=== PATIENT | female | born 1955 | race Caucasian/White ===

== ENCOUNTER 2017-07-21 13:16 | Inpatient (IN) | payer OTHER ==
[2017-07-21] MEDS ORDERED: Sodium Chloride 0.9% 10 ML Syringe FLUSH PRN (13:49)
--- NOTE | 2017-07-21 14:25 | EDM.PDOC ---
ED HPI GENERAL MEDICAL PROBLEM - General Chief Complaint: Respiratory Problem Stated Complaint: LOW OXYGEN LEVELS Time Seen by Provider: 07/21/17 13:28 Source of Information: Reports: Patient, RN Notes Reviewed - History of Present Illness INITIAL COMMENTS - FREE TEXT/NARRATIVE: 62-year-old female comes in feeling more short of breath than usual. Has noticed this worsening over the past 1-2 weeks. The dyspnea is worse with exertion. She is not coughing any more than usual. She denies known history of asthma or COPD but believe she does continue to smoke with a fairly long smoking history. No recent fever or chills. She has been having upper abdominal discomfort, diminished appetite, states she's lost about 10-12 pounds over the past month. She states that she can feel some swollen lymph nodes left neck and left jaw. Was painful last week but now she is just more aware of the swelling. She states her mouth feels very dry. She is cut back on her diuretic from 2 pills a day to one per day. She has had prior cholecystectomy. - Related Data Allergies Allergy/AdvReac Type Severity Reaction Status Date / Time No Known Allergies Allergy Verified 07/21/17 13:31 Home Meds: Home Meds Cyclobenzaprine [Flexeril] 10 mg PO BID PRN 07/21/17 [History] DULoxetine [Cymbalta] 60 mg PO DAILY 07/21/17 [History] Furosemide 60 mg PO DAILY 07/21/17 [History] Gabapentin [Neurontin] 300 mg PO BEDTIME 07/21/17 [History] Levothyroxine 25 mcg PO DAILY 07/21/17 [History] Metoclopramide [Reglan] 10 mg PO ASDIRECTED 07/21/17 [History] Ondansetron [Ondansetron ODT] 1 tab PO Q8H 07/21/17 [History] Potassium Chloride [Klor-Con M20] 20 meq PO BID 07/21/17 [History] Prochlorperazine [Compazine] 5 mg PO Q6H PRN 07/21/17 [History] Promethazine [Phenergan] 25 mg PO Q8H PRN 07/21/17 [History] Zolpidem [Ambien] 10 mg PO BEDTIME 07/21/17 [History] traMADol [Ultram] 1 - 2 tab PO Q6H PRN 07/21/17 [History] ED ROS GENERAL - Review of Systems Review Of Systems: See Below Constitutional: Denies: Fever, Chills HEENT: Denies: Throat Pain Respiratory: Reports: Shortness of Breath, Cough (Occasional). Denies: Wheezing , Pleuritic Chest Pain Cardiovascular: Denies: Chest Pain Endocrine: Reports: Fatigue GI/Abdominal: Reports: Abdominal Pain, Anorexia (Upper abdomen), Decreased Appetite, Nausea. Denies: Vomiting Musculoskeletal: Reports: Other (Generalized achiness) Skin: Denies: Rash Neurological: Reports: Dizziness, Difficulty Walking (Due to increased dyspnea) , Weakness. Denies: Trouble Speaking (Mild generalized) ED EXAM, GENERAL - Physical Exam Exam: See Below General Appearance: Alert, No Apparent Distress Eye Exam: Bilateral Eye: PERRL Throat/Mouth: Normal Inspection, Other (Mucosa very dry) Neck: Supple, Full Range of Motion, Lymphadenopathy (L) Respiratory/Chest: No Respiratory Distress, Lungs Clear, Normal Breath Sounds. No: Rales, Rhonchi, Wheezing Cardiovascular: Regular Rate, Rhythm GI/Abdominal: Soft, Tender (Mild tenderness upper mid abdomen) Back Exam: No: CVA Tenderness (L), CVA Tenderness (R) Extremities: Normal Inspection. No: Pedal Edema, Leg Pain Neurological: Alert, Oriented, No Motor/Sensory Deficits Skin Exam: Warm, Dry, Normal Color Course - Vital Signs Last Recorded V/S: Last Vital Signs Temp 97.6 F 07/21/17 13:22 Pulse 98 07/21/17 13:22 Resp 18 07/21/17 13:22 BP 120/78 07/21/17 13:22 Pulse Ox 95 07/21/17 13:22 - Orders/Labs/Meds Orders: Active Orders 24 hr Category Date Time Status EKG 12 Lead [EKG Documentation Completion] [RC] STAT Care 07/21/17 13:50 Active Peripheral IV Care [RC] Q2HR Care 07/21/17 13:51 Active CXR [Chest 2V] [CR] Stat Exams 07/21/17 13:50 Taken Sodium Chloride 0.9% [Normal Saline] 1,000 ml Med 07/21/17 15:30 Active IV ASDIRECTED Sodium Chloride 0.9% [Saline Flush] Med 07/21/17 13:49 Active 10 ml FLUSH ASDIRECTED PRN Peripheral IV Insertion Adult [OM.PC] Stat Oth 07/21/17 13:50 Ordered Medication Orders Sodium Chloride (Normal Saline) 1,000 mls @ 150 mls/hr IV ASDIRECTED JOAQUNI Last Infusion: 07/21/17 19:59 Dose: 999 mls/hr Admin: 07/21/17 15:35 Dose: 150 mls/hr Sodium Chloride (Normal Saline) 1,000 mls @ 999 mls/hr IV ONETIME JOAQUIN Sodium Chloride (Saline Flush) 10 ml FLUSH ASDIRECTED PRN PRN Reason: Keep Vein Open Last Admin: 07/21/17 14:25 Dose: 10 ml Labs: Laboratory Tests 07/21/17 07/21/17 07/21/17 Range/Units 14:20 14:20 14:20 WBC 23.61 H (3.98-10.04) K/mm3 RBC 3.65 L (3.98-5.22) M/mm3 Hgb 10.4 L (11.2-15.7) gm/L Hct 32.9 L (34.1-44.9) % MCV 90.1 (79.4-94.8) fl MCH 28.5 (25.6-32.2) pg MCHC 31.6 L (32.2-35.5) g/dl RDW Std Deviation 48.2 H (36.4-46.3) fL Plt Count 1109 H* (182-369) K/mm3 MPV 8.7 L (9.4-12.3) fl Neutrophils % (Manual) 83 H (40-60) % Band Neutrophils % 0 (0-10) % Lymphocytes % (Manual) 9 L (20-40) % Atypical Lymphs % 0 % Monocytes % (Manual) 8 (2-10) % Eosinophils % (Manual) 0 L (0.7-5.8) % Basophils % (Manual) 0 L (0.1-1.2) Platelet Estimate Marked inc Plt Morphology Comment See note Anisocytosis 2+ moderate Stomatocytes 1+ slight Sodium 140 (136-145) mEq/L Potassium 2.1 L* (3.5-5.1) mEq/L Chloride 95 L (98-107) mEq/L Carbon Dioxide 22 (21-32) mEq/L Anion Gap 25.1 H (5-15) BUN 21 H (7-18) mg/dL Creatinine 1.9 H (0.55-1.02) mg/dL Est Cr Clr Drug Dosing 24.74 mL/min Estimated GFR (MDRD) 27 (>60) mL/min BUN/Creatinine Ratio 11.1 L (14-18) Glucose 93 (80-115) mg/dL Calcium 9.9 (8.5-10.1) mg/dL Total Bilirubin 0.3 (0.2-1.0) mg/dL AST 16 (15-37) U/L ALT 17 (14-59) U/L Alkaline Phosphatase 173 H (46-116) U/L C-Reactive Protein 63.4 H* (<1.0) mg/dL NT-Pro-B Natriuret Pep 1101 H (0-125) pg/mL Total Protein 6.6 (6.4-8.2) g/dl Albumin 2.1 L (3.4-5.0) g/dl Globulin 4.5 gm/dL Albumin/Globulin Ratio 0.5 L (1-2) Lipase 2927 H (73-393) U/L Meds: Medications Generic Name Dose Route Start Last Admin Trade Name Freq PRN Reason Stop Dose Admin Sodium Chloride 1,000 mls @ 150 mls/hr 07/21/17 15:30 07/21/17 19:59 Normal Saline IV 999 mls/hr ASDIRECTED JOAQUIN Infusion Sodium Chloride 1,000 mls @ 999 mls/hr 07/21/17 19:45 Normal Saline IV ONETIME JOAQUIN Sodium Chloride 10 ml 07/21/17 13:49 07/21/17 14:25 Saline Flush FLUSH 10 ml ASDIRECTED PRN Administration Keep Vein Open Discontinued Medications Generic Name Dose Route Start Last Admin Trade Name Freq PRN Reason Stop Dose Admin Diatrizoate Meglum/Diatrizoate Sod 90 ml 07/21/17 17:16 07/21/17 18:24 Gastrografin 37% PO 07/21/17 17:17 90 ml ONETIME ONE Administration Hydromorphone HCl 0.5 mg 07/21/17 15:37 07/21/17 15:44 Dilaudid IVPUSH 07/21/17 15:38 0.5 mg ONETIME ONE Administration Hydromorphone HCl 0.5 mg 07/21/17 17:51 07/21/17 17:56 Dilaudid IVPUSH 07/21/17 17:52 0.5 mg ONETIME ONE Administration Potassium Chloride 10 meq/ 100 mls @ 50 mls/hr 07/21/17 15:28 07/21/17 15:37 Premix IV 07/21/17 17:27 50 mls/hr ASDIRECTED ONE Administration - Re-Assessments/Exams Free Text/Narrative Re-Assessment/Exam: 07/21/17 16:00. I did discuss admission with Dr. Beach or hospitalist short time ago. Order for lipase was just entered. She would like us to check abdominal ultrasound so that will be done. As noted gallbladder has been previously removed. 07/21/17 16:45. Amylase did come back extremely elevated at 2927. CT of abdomen with and without contrast has been ordered. 07/21/17 19:30 Ct of abd was done without IV contrast due to elevated Creat of 1.9, was done with oral contrast, did not show acute abnormality, see Radiologist report for details. Will admit for further eval and treatment. Departure - Departure Time of Disposition: 20:15 Disposition: Admitted As Inpatient 64 Condition: Serious Clinical Impression: Hypokalemia, Renal insufficiency Pancreatitis Qualifiers: Chronicity: acute Pancreatitis type: unspecified pancreatitis type Acute pancreatitis complication: unspecified Qualified Code(s): K85.90 - Acute pancreatitis without necrosis or infection, unspecified - Discharge Information ED Communication - Discussed Case With (1) Discussed Case With (1): Admitting Provider (Dr Beach, decision to admit at about 19:30.) - My Orders Last 24 Hours: My Active Orders 07/21/17 13:49 Sodium Chloride 0.9% [Saline Flush] 10 ml FLUSH ASDIRECTED PRN 07/21/17 13:50 EKG 12 Lead [EKG Documentation Completion] [RC] STAT CXR [Chest 2V] [CR] Stat Peripheral IV Insertion Adult [OM.PC] Stat 07/21/17 13:51 Peripheral IV Care [RC] Q2HR 07/21/17 15:30 Sodium Chloride 0.9% [Normal Saline] 1,000 ml IV ASDIRECTED - Assessment/Plan Last 24 Hours: My Active Orders 07/21/17 13:49 Sodium Chloride 0.9% [Saline Flush] 10 ml FLUSH ASDIRECTED PRN 07/21/17 13:50 EKG 12 Lead [EKG Documentation Completion] [RC] STAT CXR [Chest 2V] [CR] Stat Peripheral IV Insertion Adult [OM.PC] Stat 07/21/17 13:51 Peripheral IV Care [RC] Q2HR 07/21/17 15:30 Sodium Chloride 0.9% [Normal Saline] 1,000 ml IV ASDIRECTED
[2017-07-21] MEDS ORDERED: Potassium Chloride 10 MEQ in Premix Bag 1 BAG IV ONE (15:28)
[2017-07-21] MEDS ORDERED: Sodium Chloride 0.9% 1,000 ML IV SCH ×2 (15:30→19:45)
[2017-07-21] MEDS ORDERED: HYDROmorphone 0.5 MG/0.5 ML Syringe IVPUSH ONE ×2 (15:37→17:51)
--- NOTE | 2017-07-21 17:02 | US ---
Limited abdominal ultrasound: Multiple real-time images of the upper right abdomen were obtained. Comparison: Most recent abdominal imaging is a CT abdomen and pelvis study of 06/28/13. Findings: Previous cholecystectomy is noted. Common bile duct is dilated up to 1.4 cm with intrahepatic biliary duct dilatation. This finding is fairly stable from previous exam and likely residual from prior cholecystectomy. Liver shows no focal abnormality. Right kidney shows a 2.0 cm cyst. Right kidney shows no hydronephrosis. No discrete abnormality within the visualized pancreas. Inferior vena cava is patent. Portal vein shows normal hepatopedal flow. Impression: 1. Dilated common bile duct and intrahepatic biliary duct dilatation which is fairly stable from prior CT exam. Findings are felt compatible with residual change from prior cholecystectomy. 2. Incidental 2.0 cm cyst within the right kidney. 3. No additional abnormality is identified on right upper quadrant abdominal ultrasound. Diagnostic code #2
[2017-07-21] MEDS ORDERED: Diatrizoate Meglumine/Diatrizoate Sodium 37% 120 ML Bottle PO ONE (17:16)
--- NOTE | 2017-07-21 17:16 | PCM.SN ---
- Free Text/Narrative Note: Start: 1700 Stop: 1715 IV start per anesthesia times two attempts. 22 gauge to left upper arm, flushed with 20ml's of NS
--- NOTE | 2017-07-21 19:00 | CT ---
CT abdomen and pelvis Technique: Multiple axial sections were obtained from above the dome of the diaphragm inferiorly through the pubic symphysis. Oral contrast has been given. Study is limited in detail due to lack of intravenous contrast. Comparison: Previous limited abdominal ultrasound performed on the same day, previous CT abdomen and pelvis study of 06/28/13. Findings: Visualized lung bases shows nothing acute. Coronary artery calcification is seen. Noncontrast appearance of the liver shows minimal intrahepatic ductal dilatation. Slight extrahepatic biliary duct dilatation is also noted. Spleen appears within normal limits. Adrenal glands show no nodule. Hyperdense lesion is identified within the left kidney most likely due to slightly hemorrhagic cyst as this finding is otherwise stable from previous exam. Second hyperdense lesion is seen more inferiorly within the left kidney most likely due to an additional hyperdense cyst. No hydronephrosis is seen within either kidney. Surgical clips are seen at the gastroesophageal junction previous stomach surgery is noted. Pancreas shows no discrete abnormality. Aorta shows atherosclerotic change without aneurysmal dilatation. Atherosclerotic change is seen within the iliac vessels. Appendix not visualized with certainty. No pelvic mass or adenopathy is seen. No free fluid or inflammatory change is seen. Bladder is slightly dilated with urine. Bone window settings were reviewed which appear within normal limits for the patient's age. Impression: 1. Incidental findings as described above. Nothing acute is appreciated on noncontrast CT study of the abdomen and pelvis. Diagnostic code #2
--- NOTE | 2017-07-21 20:23 | PCM.HP ---
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 Decreased appetite with weight loss~10-12 pounds; query anorexia. Abdominal pain with unremarkable CT of abdomen and pelvis as well as US; elevated lipase, and admits to pancreatitis remotely. Chronic cough with history of COPD, she is a former smoker. Denies sputum, fever, chills, N/V, CP; does admit to SOB without significant change in severity. Onset of Symptoms: Reports: Gradual Duration of Symptoms: Reports: Day(s):, Getting Worse Location: Reports: Face, Abdomen, Generalized Severity: Moderate Improves with: Reports: Medication Worsens with: Reports: None Associated Symptoms: Reports: Cough, Loss of Appetite, Nausea/Vomiting, Weakness left neck Pain Score (Numeric/FACES): 8 abdomen Pain Score (Numeric/FACES): 0 - Related Data Allergies/Adverse Reactions: Allergies Allergy/AdvReac Type Severity Reaction Status Date / Time No Known Allergies Allergy Verified 07/21/17 13:31 Home Medications: Home Meds Cyclobenzaprine [Flexeril] 10 mg PO BID PRN 07/21/17 [History] DULoxetine [Cymbalta] 60 mg PO DAILY 07/21/17 [History] Furosemide 60 - 80 mg PO DAILY 07/21/17 [History] Gabapentin [Neurontin] 300 mg PO BEDTIME 07/21/17 [History] Levothyroxine 25 mcg PO DAILY 07/21/17 [History] Metoclopramide [Reglan] 10 mg PO QID 07/21/17 [History] Ondansetron [Ondansetron ODT] 8 mg PO Q8H PRN 07/21/17 [History] Potassium Chloride [Klor-Con M20] 20 meq PO BID 07/21/17 [History] Prochlorperazine [Compazine] 5 mg PO Q6H PRN 07/21/17 [History] Promethazine [Phenergan] 25 mg PO Q8H PRN 07/21/17 [History] Zolpidem [Ambien] 10 mg PO BEDTIME PRN 07/21/17 [History] traMADol [Ultram] 1 - 2 tab PO Q6H PRN 07/21/17 [History] Past Medical History HEENT History: Reports: Sinusitis Other HEENT History: wear glasses Respiratory History: Reports: COPD, SOB Gastrointestinal History: Reports: Gastritis, Other (See Below) Other Gastrointestinal History: Bleeding ulcers in 1994 and had 1/2 of stomach removed [employer]AGE [employer] History: Reports: Psychiatric History: Reports: Anxiety, Depression - Infectious Disease History Infectious Disease History: Reports: MRSA Other Infectious Disease History: sinus - Past Surgical History HEENT Surgical History: Reports: Naso-Sinus Surgery GI Surgical History: Reports: Appendectomy, Cholecystectomy, Colonoscopy, EGD Other Neurological Surgeries/Procedures: back pain chronic Musculoskeletal Surgical History: Reports: Arthroscopic Knee Social & Family History - Tobacco Use Smoking Status *Q: Former Smoker Used Tobacco, but Quit: Yes Month Tobacco Last Used: nov - Caffeine Use Caffeine Use: Reports: Coffee - Recreational Drug Use Recreational Drug Use: No H&P Review of Systems - Review of Systems: Review Of Systems: See Below General: Reports: Weakness HEENT: Reports: Other (swollen neck) Pulmonary: Reports: Shortness of Breath Cardiovascular: Reports: No Symptoms Gastrointestinal: Reports: Abdominal Pain Genitourinary: Reports: No Symptoms Musculoskeletal: Reports: Neck Pain (left sided) Skin: Reports: No Symptoms Psychiatric: Reports: No Symptoms Neurological: Reports: No Symptoms Hematologic/Lymphatic: Reports: No Symptoms Immunologic: Reports: No Symptoms Exam - Exam Exam: See Below - Vital Signs Vital Signs: Last Vital Signs Temp 36.4 C 07/21/17 13:22 Pulse 98 07/21/17 13:22 Resp 18 07/21/17 13:22 BP 120/78 07/21/17 13:22 Pulse Ox 95 07/21/17 13:22 Weight: 53.07 kg - Exam Quality Assessment: Supplemental Oxygen, DVT Prophylaxis General: Alert, Oriented HEENT: EOMI, Nares Patent, Normal Nasal Septum, Pupils Equal, Pupils Reactive, Other (left sided adenopthy), PERRLA Neck: Trachea Midline, Lymphadenopathy (left mandibular/post auricular) Lungs: Normal Respiratory Effort Cardiovascular: Regular Rate, Irregular Rhythm GI/Abdominal Exam: Normal Bowel Sounds, Soft, No Distention, Tender (minimal epigastric) (Female) Exam: Deferred Rectal (Female) Exam: Deferred Back Exam: Normal Inspection Extremities: Normal Inspection, Slow Capillary Refill Skin: Warm Neurological: Cranial Nerves Intact Neuro Extensive - Mental Status: Alert, Oriented x3, Other (slow response to questions) Neuro Extensive - Motor, Sensory, Reflexes: CN II-XII Intact Psychiatric: Alert, Depressed (query) - Patient Data Result Diagrams: 07/22/17 05:55 07/22/17 05:55 *Q Meaningful Use (ADM) - VTE *Q VTE Criteria *Q: - Stroke *Q Stroke Criteria *Q: - AMI *Q AMI Criteria *Q: - Problem List (1) Hypomagnesemia SNOMED Code(s): 624328008 ICD Code: E83.42 - HYPOMAGNESEMIA Status: Acute Current Visit: Yes (2) History of thrombocytosis SNOMED Code(s): 621030463 ICD Code: Z86.2 - PRSNL HISTORY OF DIS OF THE BLD/BLD-FORM ORG/IMMUN MECHNSM Status: Acute Current Visit: Yes (3) COPD (chronic obstructive pulmonary disease) SNOMED Code(s): 79174771 ICD Code: J44.9 - CHRONIC OBSTRUCTIVE PULMONARY DISEASE, UNSPECIFIED Status : Acute Current Visit: Yes (4) Anorexia SNOMED Code(s): 36694622 ICD Code: R63.0 - ANOREXIA Status: Acute Current Visit: Yes (5) Hypokalemia SNOMED Code(s): 93810580 ICD Code: E87.6 - HYPOKALEMIA Status: Acute Current Visit: Yes (6) Pancreatitis SNOMED Code(s): 55528063 ICD Code: K85.90 - ACUTE PANCREATITIS WITHOUT NECROSIS OR INFECTION, UNSP Status: Acute Current Visit: Yes Qualifiers: Chronicity: acute Pancreatitis type: unspecified pancreatitis type Acute pancreatitis complication: unspecified Qualified Code(s): K85.90 - Acute pancreatitis without necrosis or infection, unspecified (7) Renal insufficiency SNOMED Code(s): 672250108 ICD Code: N28.9 - DISORDER OF KIDNEY AND URETER, UNSPECIFIED Status: Acute Current Visit: Yes Problem List Initiated/Reviewed/Updated: Yes Orders Last 24hrs: Active Orders 24 hr Category Date Time Status Sodium Chloride 0.9% [Normal Saline] 1,000 ml Med 07/21/17 19:45 Active IV ONETIME Medication Orders Sodium Chloride (Normal Saline) 1,000 mls @ 150 mls/hr IV ASDIRECTED JOAQUIN Last Infusion: 07/21/17 19:59 Dose: 999 mls/hr Admin: 07/21/17 15:35 Dose: 150 mls/hr Sodium Chloride (Normal Saline) 1,000 mls @ 999 mls/hr IV ONETIME JOAQUIN Sodium Chloride (Saline Flush) 10 ml FLUSH ASDIRECTED PRN PRN Reason: Keep Vein Open Last Admin: 07/21/17 14:25 Dose: 10 ml Assessment/Plan Comment:: Impression: Anorexia (unspecified), acute on chronic Acute pancreatitis Thrombocytosis, unspecified; reported history of follow up with choke setter Abnormal peripheral smear Leukocyctosis Hypokalemia Hypomagnesemia History of COPD with history of tobacco Left sided neck pain without difficulty swallowing. ARF. Plan: MS telemetry IVF with KCl Oral K supplement NPO except meds Infectious work up Heme work up; obtain old EMR, no comment regarding platelet ct on recent clinic visit Replace electrolytes DVT/GI prophylaxis Code status: CPR only
[2017-07-21] MEDS: Gabapentin 300 MG Cap PO SCH (21:58)
[2017-07-21] MEDS: Pantoprazole 40 MG Vial IVPUSH SCH (21:59)
[2017-07-21] MEDS: Sodium Chloride 0.45% with KCl 1,000 ML IV SCH (22:04)
[2017-07-21] MEDS: HYDROmorphone 0.5 MG/0.5 ML Syringe IVPUSH PRN (22:58)
[2017-07-22] MEDS: HYDROmorphone 0.5 MG/0.5 ML Syringe IVPUSH PRN ×5 (04:10→22:40)
[2017-07-22] MEDS: Sodium Chloride 0.45% with KCl 1,000 ML IV SCH ×3 (04:59→21:03)
[2017-07-22] MEDS: Levothyroxine 25 MCG Tab PO SCH (05:12)
[2017-07-22] MEDS ORDERED: Magnesium Sulfate/Water 50 ML ONE (05:30)
[2017-07-22] MEDS ORDERED: Magnesium Sulfate/Water 2 GM in Premix Bag 1 BAG IV STA (05:33)
[2017-07-22] MEDS ORDERED: Magnesium Sulfate/Water 2 GM in Premix Bag 1 BAG IV ONE ×2 (07:30→14:00)
[2017-07-22] MEDS: DULoxetine 30 MG Cap PO SCH (08:05)
[2017-07-22] MEDS: Potassium Chloride 10% 20 MEQ/15 ML Soln 30 ML UD Cup PO SCH ×2 (08:06→08:30)
[2017-07-22] MEDS ORDERED: Potassium Chloride 20 MEQ Tab.ER PO SCH (09:15)
[2017-07-22] MEDS ORDERED: HYDROmorphone 0.5 MG/0.5 ML Syringe IVPUSH ONE (09:32)
[2017-07-22] MEDS: Potassium Chloride 20 MEQ Tab.ER PO SCH ×2 (09:57→20:49)
--- NOTE | 2017-07-22 10:59 | CR ---
Chest: Two views of the chest were obtained. Comparison: Prior chest x-ray of 10/26/13. Slight scarring felt to be present within the right middle lobe as well as minimal scarring within the lingula. Lungs otherwise are clear. Heart size and mediastinum are normal. Right sided vascular stent is seen within the upper right chest. Bony structures are within normal limits for the patient's age. Surgical clips seen from prior cholecystectomy. Impression: 1. Slight scarring within the right middle lobe and lingula. 2. Other incidental findings. Nothing acute is identified. Diagnostic code #2
[2017-07-22] MEDS: Pantoprazole 40 MG Vial IVPUSH SCH ×2 (12:19→20:50)
--- NOTE | 2017-07-22 12:20 | CT ---
CT neck Technique: Multiple axial sections through the neck were obtained. Study slightly limited due to lack of intravenous contrast. Findings: Mucosal thickening is again noted within the maxillary sinuses with prior maxillary sinus surgery. Mild mucosal thickening is seen within portions of the ethmoid sinuses. Mild degenerative change is noted within the apophyseal joints within the cervical spine. Left parotid salivary gland is enlarged as compared to the right side. Mild inflammatory-type change is seen around the parotid salivary gland within the subcutaneous tissues. Small scattered normal-appearing lymph nodes are seen. Mild vascular calcification is seen. Right subclavian stent is present. Impression: 1. Enlarged left parotid salivary gland with surrounding subcutaneous inflammatory change most likely representing parotid sialadenitis. 2. Other incidental findings as noted above. Diagnostic code #3
--- NOTE | 2017-07-22 12:20 | CT ---
Head CT Technique: Multiple axial sections through the brain were obtained. Intravenous contrast was not utilized. Comparison: Previous head CT and MRI brain dated 02/22/11. Findings: Ventricles along with basal cisterns and sulci over the convexities are felt to be within normal limits for the patient's age. No abnormal parenchymal densities are seen. No evidence of intracranial hemorrhage. No midline shift or mass effect is seen. Bone window settings were reviewed which shows no acute calvarial abnormality. Mucosal thickening is seen within both maxillary sinuses with evidence of previous surgery. Slight mucosal thickening is seen within the ethmoid sinuses. Impression: 1. Incidental sinus findings. 2. No acute intracranial abnormality is appreciated. Diagnostic code #2
[2017-07-22] MEDS: traMADol 50 MG Tab PO PRN (12:42)
--- NOTE | 2017-07-22 16:53 | PCM.PN ---
- General Info Date of Service: 07/22/17 Functional Status: Reports: Tolerating Diet, Ambulating, Urinating - Review of Systems General: Reports: No Symptoms HEENT: Reports: Other (jaw pain) Pulmonary: Reports: No Symptoms Cardiovascular: Reports: No Symptoms Gastrointestinal: Reports: No Symptoms Genitourinary: Reports: No Symptoms Musculoskeletal: Reports: No Symptoms Skin: Reports: No Symptoms Neurological: Reports: No Symptoms Psychiatric: Reports: No Symptoms - Patient Data Vitals - Most Recent: Last Vital Signs Temp 36.4 C 07/22/17 07:46 Pulse 45 L 07/22/17 05:27 Resp 16 07/22/17 07:46 BP 113/92 H 07/22/17 07:46 Pulse Ox 98 07/22/17 05:27 Weight - Most Recent: 53.07 kg I&O - Last 24 Hours: Intake & Output 07/22/17 07/22/17 07/22/17 06:59 14:59 22:59 Intake Total 1000 Balance 1000 Lab Results Last 24 Hours: Laboratory Results - last 24 hr 07/21/17 07/22/17 07/22/17 Range/Units 21:20 05:55 05:55 WBC 20.30 H (3.98-10.04) K/mm3 RBC 3.55 L (3.98-5.22) M/mm3 Hgb 10.1 L (11.2-15.7) gm/L Hct 32.1 L (34.1-44.9) % MCV 90.4 (79.4-94.8) fl MCH 28.5 (25.6-32.2) pg MCHC 31.5 L (32.2-35.5) g/dl RDW Std Deviation 49.3 H (36.4-46.3) fL Plt Count 1018 H* (182-369) K/mm3 MPV 9.1 L (9.4-12.3) fl Neut % (Auto) 82.0 H (34.0-71.1) % Lymph % (Auto) 7.6 L (19.3-51.7) % [place] % (Auto) 9.0 (4.7-12.5) % Eos % (Auto) 0.7 (0.7-5.8) Baso % (Auto) 0.2 (0.1-1.2) % Neut # (Auto) 16.64 H (1.56-6.13) K/mm3 Lymph # (Auto) 1.55 (1.18-3.74) K/mm3 [place] # (Auto) 1.82 H (0.24-0.36) K/mm3 Eos # (Auto) 0.14 (0.04-0.36) K/mm3 Baso # (Auto) 0.04 (0.01-0.08) K/mm3 Manual Slide Review Abnormal smear ESR (0-20) mm/hr Sodium 137 (136-145) mEq/L Potassium 2.6 L (3.5-5.1) mEq/L Chloride 97 L (98-107) mEq/L Carbon Dioxide 18 L (21-32) mEq/L Anion Gap 24.6 H (5-15) BUN 20 H (7-18) mg/dL Creatinine 1.5 H (0.55-1.02) mg/dL Est Cr Clr Drug Dosing 31.34 mL/min Estimated GFR (MDRD) 35 (>60) mL/min BUN/Creatinine Ratio 13.3 L (14-18) Glucose 76 L (80-115) mg/dL Calcium 9.1 (8.5-10.1) mg/dL Magnesium 1.8 (1.8-2.4) mg/dl Ferritin (8-252) ng/ml Total Bilirubin 0.3 (0.2-1.0) mg/dL AST 20 (15-37) U/L ALT 15 (14-59) U/L Alkaline Phosphatase 163 H (46-116) U/L C-Reactive Protein 60.0 H* (<1.0) mg/dL Total Protein 5.9 L (6.4-8.2) g/dl Albumin 1.7 L (3.4-5.0) g/dl Globulin 4.2 gm/dL Albumin/Globulin Ratio 0.4 L (1-2) Lipase 922 H (73-393) U/L TSH 3rd Generation 3.616 (0.358-3.74) uIU/mL Mycoplasma pneumon IgM Negative (NEGATIVE) MRSA (PCR) Negative 07/22/17 07/22/17 Range/Units 05:55 05:55 WBC (3.98-10.04) K/mm3 RBC (3.98-5.22) M/mm3 Hgb (11.2-15.7) gm/L Hct (34.1-44.9) % MCV (79.4-94.8) fl MCH (25.6-32.2) pg MCHC (32.2-35.5) g/dl RDW Std Deviation (36.4-46.3) fL Plt Count (182-369) K/mm3 MPV (9.4-12.3) fl Neut % (Auto) (34.0-71.1) % Lymph % (Auto) (19.3-51.7) % [place] % (Auto) (4.7-12.5) % Eos % (Auto) (0.7-5.8) Baso % (Auto) (0.1-1.2) % Neut # (Auto) (1.56-6.13) K/mm3 Lymph # (Auto) (1.18-3.74) K/mm3 [place] # (Auto) (0.24-0.36) K/mm3 Eos # (Auto) (0.04-0.36) K/mm3 Baso # (Auto) (0.01-0.08) K/mm3 Manual Slide Review ESR 86 H (0-20) mm/hr Sodium (136-145) mEq/L Potassium (3.5-5.1) mEq/L Chloride (98-107) mEq/L Carbon Dioxide (21-32) mEq/L Anion Gap (5-15) BUN (7-18) mg/dL Creatinine (0.55-1.02) mg/dL Est Cr Clr Drug Dosing mL/min Estimated GFR (MDRD) (>60) mL/min BUN/Creatinine Ratio (14-18) Glucose (80-115) mg/dL Calcium (8.5-10.1) mg/dL Magnesium (1.8-2.4) mg/dl Ferritin 236 (8-252) ng/ml Total Bilirubin (0.2-1.0) mg/dL AST (15-37) U/L ALT (14-59) U/L Alkaline Phosphatase (46-116) U/L C-Reactive Protein (<1.0) mg/dL Total Protein (6.4-8.2) g/dl Albumin (3.4-5.0) g/dl Globulin gm/dL Albumin/Globulin Ratio (1-2) Lipase (73-393) U/L TSH 3rd Generation (0.358-3.74) uIU/mL Mycoplasma pneumon IgM (NEGATIVE) MRSA (PCR) Med Orders - Current: Current Medications Duloxetine HCl (Cymbalta) 60 mg PO DAILY [facility] Last Admin: 07/22/17 08:05 Dose: 60 mg Gabapentin (Neurontin) 300 mg PO BEDTIME [facility] Last Admin: 07/21/17 21:58 Dose: 300 mg Hydromorphone HCl (Dilaudid) 0.5 mg IVPUSH Q4H PRN PRN Reason: Pain Last Admin: 07/22/17 14:15 Dose: 0.5 mg Sodium Chloride (Normal Saline) 1,000 mls @ 999 mls/hr IV ONETIME [facility] Potassium Chloride/Sodium Chloride (1/2 Ns With 20 Meq Kcl) 1,000 mls @ 150 mls /hr IV ASDIRECTED [facility] Last Admin: 07/22/17 13:32 Dose: 150 mls/hr Ceftriaxone Sodium 2 gm/ (Sodium Chloride) 100 mls @ 200 mls/hr IV Q24H [facility] Levothyroxine Sodium (Levothyroxine) 25 mcg PO ACBRK [facility] Last Admin: 07/22/17 05:12 Dose: 25 mcg Methylprednisolone Sodium Succinate (Solu-Medrol) 40 mg IVPUSH Q12H [facility] Pantoprazole Sodium (Protonix Iv) 40 mg IVPUSH Q12H [facility] Last Admin: 07/22/17 12:19 Dose: 40 mg Potassium Chloride (Klor-Con M20) 60 meq PO BID [facility] Stop: 07/23/17 09:01 Last Admin: 07/22/17 09:57 Dose: 60 meq Sodium Chloride (Saline Flush) 10 ml FLUSH ASDIRECTED PRN PRN Reason: Keep Vein Open Last Admin: 07/21/17 14:25 Dose: 10 ml Tramadol HCl (Ultram) 50 mg PO TID PRN PRN Reason: Pain Last Admin: 07/22/17 12:42 Dose: 50 mg Discontinued Medications Diatrizoate Meglum/Diatrizoate Sod (Gastrografin 37%) 90 ml PO ONETIME ONE Stop: 07/21/17 17:17 Last Admin: 07/21/17 18:24 Dose: 90 ml Hydromorphone HCl (Dilaudid) 0.5 mg IVPUSH ONETIME ONE Stop: 07/21/17 15:38 Last Admin: 07/21/17 15:44 Dose: 0.5 mg Hydromorphone HCl (Dilaudid) 0.5 mg IVPUSH ONETIME ONE Stop: 07/21/17 17:52 Last Admin: 07/21/17 17:56 Dose: 0.5 mg Hydromorphone HCl (Dilaudid) 0.5 mg IVPUSH ONETIME ONE Stop: 07/22/17 09:33 Last Admin: 07/22/17 09:38 Dose: 0.5 mg Potassium Chloride 10 meq/ (Premix) 100 mls @ 50 mls/hr IV ASDIRECTED ONE Stop: 07/21/17 17:27 Last Admin: 07/21/17 15:37 Dose: 50 mls/hr Sodium Chloride (Normal Saline) 1,000 mls @ 150 mls/hr IV ASDIRECTED [facility] Last Infusion: 07/21/17 19:59 Dose: 999 mls/hr Magnesium Sulfate 2 gm/ Premix 50 mls @ 25 mls/hr IV Q1H [facility] Stop: 07/22/17 07:32 Last Admin: 07/22/17 05:38 Dose: 25 mls/hr Magnesium Sulfate (Magnesium Sulfate 2 Gm In Water 50 Ml) Confirm Administered Dose 50 mls @ as directed .ROUTE .STK-MED ONE Stop: 07/22/17 05:31 Last Admin: 07/22/17 07:18 Dose: Not Given Magnesium Sulfate 2 gm/ Premix 50 mls @ 25 mls/hr IV ONETIME ONE Stop: 07/22/17 09:29 Last Admin: 07/22/17 08:07 Dose: 25 mls/hr Magnesium Sulfate 2 gm/ Premix 50 mls @ 25 mls/hr IV ONETIME ONE Stop: 07/22/17 15:59 Last Admin: 07/22/17 13:35 Dose: 25 mls/hr Potassium Chloride (Potassium Chloride) 60 meq PO DAILY [facility] Stop: 07/24/17 09:01 Last Admin: 07/22/17 08:06 Dose: 60 meq Potassium Chloride (Klor-Con M20) 60 meq PO DAILY [facility] Stop: 07/24/17 09:01 - Exam Quality Assessment: Supplemental Oxygen, DVT Prophylaxis General: Alert, Oriented, Cooperative, No Acute Distress HEENT: Pupils Equal, Pupils Reactive, EOMI Neck: Supple, Trachea Midline, No JVD Lungs: Normal Respiratory Effort Cardiovascular: Regular Rate, Regular Rhythm GI/Abdominal Exam: Normal Bowel Sounds, Soft, Non-Tender, No Organomegaly (Female) Exam: Deferred Back Exam: Normal Inspection Extremities: Normal Inspection Skin: Warm Neurological: No New Focal Deficit, Normal Gait, Normal Speech Psy/Mental Status: Alert, Normal Affect, Normal Mood - Problem List & Annotations (1) Hypomagnesemia SNOMED Code(s): 346851347 Code(s): E83.42 - HYPOMAGNESEMIA Status: Acute Current Visit: Yes (2) History of thrombocytosis SNOMED Code(s): 532245896 Code(s): Z86.2 - PRSNL HISTORY OF DIS OF THE BLD/BLD-FORM ORG/IMMUN MECHNSM Status: Acute Current Visit: Yes (3) COPD (chronic obstructive pulmonary disease) SNOMED Code(s): 82134234 Code(s): J44.9 - CHRONIC OBSTRUCTIVE PULMONARY DISEASE, UNSPECIFIED Status : Acute Current Visit: Yes (4) Anorexia SNOMED Code(s): 97934613 Code(s): R63.0 - ANOREXIA Status: Acute Current Visit: Yes (5) Hypokalemia SNOMED Code(s): 17584496 Code(s): E87.6 - HYPOKALEMIA Status: Acute Current Visit: Yes (6) Pancreatitis SNOMED Code(s): 92337652 Code(s): K85.90 - ACUTE PANCREATITIS WITHOUT NECROSIS OR INFECTION, UNSP Status: Acute Current Visit: Yes Qualifiers: Chronicity: acute Pancreatitis type: unspecified pancreatitis type Acute pancreatitis complication: unspecified Qualified Code(s): K85.90 - Acute pancreatitis without necrosis or infection, unspecified (7) Renal insufficiency SNOMED Code(s): 854709518 Code(s): N28.9 - DISORDER OF KIDNEY AND URETER, UNSPECIFIED Status: Acute Current Visit: Yes - Problem List Review Problem List Initiated/Reviewed/Updated: Yes - My Orders Last 24 Hours: My Active Orders 07/21/17 20:30 Vital Signs [RC] 03,09,15,21 07/21/17 20:42 Activity as Tolerated [RC] .Routine 07/21/17 20:50 HYDROmorphone [Dilaudid] 0.5 mg IVPUSH Q4H PRN 07/21/17 21:00 Gabapentin [Neurontin] 300 mg PO BEDTIME Sodium Chloride 0.45% with KCl [1/2 NS with 20 mEq KCl] 1,000 ml IV ASDIRECTED 07/21/17 21:10 Code Status [Resuscitation Status] Routine 07/21/17 21:30 Pantoprazole [ProTONIX IV] 40 mg IVPUSH Q12H 07/21/17 21:32 Antiembolic Devices [RC] PER UNIT ROUTINE YONI Hose [Antiembolic Hose] [OM.PC] Routine 07/22/17 00:29 Oxygen Therapy [RC] ASDIRECTED 07/22/17 02:27 Patient Status [ADT] Routine 07/22/17 04:52 EKG 12 Lead [EK] Routine 07/22/17 06:00 Levothyroxine 25 mcg PO ACBRK 07/22/17 09:00 Consult to Occupational Therapy [OT Evaluation and Treatment] [CONS] Routine Consult to Physical Therapy [PT Evaluation and Treatment] [CONS] Routine 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 to Ice Platform Supervisor [CONS] Routine DULoxetine [Cymbalta] 60 mg PO DAILY 07/22/17 09:30 STREP PNEUMONIAE ANTIGEN [MREF] Routine 07/22/17 09:45 Potassium Chloride [Klor-Con M20] 60 meq PO BID 07/22/17 09:50 traMADol [Ultram] 50 mg PO TID PRN 07/22/17 15:18 EKG Documentation Completion [RC] ROUTINE 07/22/17 16:00 BMP [BASIC METABOLIC PANEL,BMP] [CHEM] Routine cefTRIAXone [Rocephin] 2 gm Sodium Chloride 0.9% [Normal Saline] 100 ml IV Q24H methylPREDNISolone Sod Succ [Solu-MEDROL] 40 mg IVPUSH Q12H 07/22/17 Lunch Clear Liquid Diet [DIET] 07/23/17 05:00 CBC WITH AUTO DIFF [HEME] DAILY CRP [C-REACTIVE PROTEIN] [CHEM] DAILY LIPASE [CHEM] DAILY MAGNESIUM [CHEM] DAILY 07/24/17 05:00 CBC WITH AUTO DIFF [HEME] DAILY CRP [C-REACTIVE PROTEIN] [CHEM] DAILY LIPASE [CHEM] DAILY MAGNESIUM [CHEM] DAILY 07/25/17 05:00 CBC WITH AUTO DIFF [HEME] DAILY CRP [C-REACTIVE PROTEIN] [CHEM] DAILY LIPASE [CHEM] DAILY MAGNESIUM [CHEM] DAILY - Plan Plan:: Impression: Anorexia (unspecified), acute on chronic Acute pancreatitis ~resolved Thrombocytosis, unspecified; 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 ARF~resolved Eating disorder Plan: MS telemetry IVF with KCl Oral K supplement Psych consult Infectious work up Heme work up; obtain old EMR, no comment regarding platelet ct on recent clinic visit Replace electrolytes DVT/GI prophylaxis Code status: CPR only
[2017-07-22] MEDS: methylPREDNISolone Sodium Succinate 40 MG/1 ML SDV IVPUSH SCH (17:28)
[2017-07-22] MEDS: cefTRIAXone 2 GM in Sodium Chloride 0.9% 100 ML IV SCH (17:28)
[2017-07-22] MEDS: Gabapentin 300 MG Cap PO SCH (20:49)
[2017-07-23] MEDS: methylPREDNISolone Sodium Succinate 40 MG/1 ML SDV IVPUSH SCH ×2 (03:28→15:17)
[2017-07-23] MEDS: HYDROmorphone 0.5 MG/0.5 ML Syringe IVPUSH PRN ×4 (03:38→22:35)
[2017-07-23] MEDS: Sodium Chloride 0.45% with KCl 1,000 ML IV SCH (04:00)
[2017-07-23] MEDS: Levothyroxine 25 MCG Tab PO SCH (06:14)
[2017-07-23] MEDS: traMADol 50 MG Tab PO PRN (06:27)
[2017-07-23] MEDS: DULoxetine 30 MG Cap PO SCH (08:12)
[2017-07-23] MEDS: Pantoprazole 40 MG Vial IVPUSH SCH ×2 (08:27→09:30)
[2017-07-23] MEDS: Potassium Chloride 20 MEQ Tab.ER PO SCH (09:27)
[2017-07-23] MEDS ORDERED: Ketorolac 30 MG/ML SDV IVPUSH ONE (12:11)
[2017-07-23] MEDS: Ondansetron 4 MG Tab.DIS PO PRN ×2 (12:26→22:35)
--- NOTE | 2017-07-23 12:26 | PCM.PN ---
- General Info Date of Service: 07/23/17 Admission Dx/Problem (Free Text): Moderate relief of facial discomfort, otherwise feeling stronger.. Functional Status: Reports: Tolerating Diet, Ambulating, Urinating - Review of Systems General: Reports: No Symptoms HEENT: Reports: No Symptoms Pulmonary: Reports: No Symptoms Cardiovascular: Reports: No Symptoms Gastrointestinal: Reports: Nausea Genitourinary: Reports: No Symptoms Musculoskeletal: Reports: No Symptoms Skin: Reports: No Symptoms Neurological: Reports: No Symptoms Psychiatric: Reports: No Symptoms - Patient Data Vitals - Most Recent: Last Vital Signs Temp 37.3 C 07/23/17 11:39 Pulse 105 H 07/23/17 11:15 Resp 24 H 07/23/17 11:39 BP 143/90 H 07/23/17 11:39 Pulse Ox 99 07/23/17 11:15 Weight - Most Recent: 53.07 kg I&O - Last 24 Hours: Intake & Output 07/22/17 07/23/17 07/23/17 22:59 06:59 14:59 Intake Total 3850 2360 360 Output Total 2100 800 Balance 1750 1560 360 Lab Results Last 24 Hours: Laboratory Results - last 24 hr 07/22/17 07/23/17 07/23/17 Range/Units 16:42 06:06 06:06 WBC 16.57 H (3.98-10.04) K/mm3 RBC 3.31 L (3.98-5.22) M/mm3 Hgb 9.4 L (11.2-15.7) gm/L Hct 30.5 L (34.1-44.9) % MCV 92.1 (79.4-94.8) fl MCH 28.4 (25.6-32.2) pg MCHC 30.8 L (32.2-35.5) g/dl RDW Std Deviation 49.3 H (36.4-46.3) fL Plt Count 1110 H* (182-369) K/mm3 MPV 9.2 L (9.4-12.3) fl Neut % (Auto) 93.6 H (34.0-71.1) % Lymph % (Auto) 5.0 L (19.3-51.7) % [place] % (Auto) 0.9 L (4.7-12.5) % Eos % (Auto) 0 L (0.7-5.8) Baso % (Auto) 0.0 L (0.1-1.2) % Neut # (Auto) 15.50 H (1.56-6.13) K/mm3 Lymph # (Auto) 0.83 L (1.18-3.74) K/mm3 [place] # (Auto) 0.15 L (0.24-0.36) K/mm3 Eos # (Auto) 0.00 L (0.04-0.36) K/mm3 Baso # (Auto) 0.00 L (0.01-0.08) K/mm3 Manual Slide Review Abnormal smear Sodium 135 L (136-145) mEq/L Potassium 3.4 L (3.5-5.1) mEq/L Chloride 97 L (98-107) mEq/L Carbon Dioxide 15 L (21-32) mEq/L Anion Gap 26.4 H (5-15) BUN 16 (7-18) mg/dL Creatinine 1.1 H (0.55-1.02) mg/dL Est Cr Clr Drug Dosing 42.74 mL/min Estimated GFR (MDRD) 50 (>60) mL/min BUN/Creatinine Ratio 14.5 (14-18) Glucose 70 L (80-115) mg/dL Calcium 9.0 (8.5-10.1) mg/dL Magnesium 2.5 H (1.8-2.4) mg/dl C-Reactive Protein 44.3 H* (<1.0) mg/dL Lipase 257 (73-393) U/L 07/23/17 Range/Units 06:06 WBC (3.98-10.04) K/mm3 RBC (3.98-5.22) M/mm3 Hgb (11.2-15.7) gm/L Hct (34.1-44.9) % MCV (79.4-94.8) fl MCH (25.6-32.2) pg MCHC (32.2-35.5) g/dl RDW Std Deviation (36.4-46.3) fL Plt Count (182-369) K/mm3 MPV (9.4-12.3) fl Neut % (Auto) (34.0-71.1) % Lymph % (Auto) (19.3-51.7) % [place] % (Auto) (4.7-12.5) % Eos % (Auto) (0.7-5.8) Baso % (Auto) (0.1-1.2) % Neut # (Auto) (1.56-6.13) K/mm3 Lymph # (Auto) (1.18-3.74) K/mm3 [place] # (Auto) (0.24-0.36) K/mm3 Eos # (Auto) (0.04-0.36) K/mm3 Baso # (Auto) (0.01-0.08) K/mm3 Manual Slide Review Sodium 136 (136-145) mEq/L Potassium 5.2 H (3.5-5.1) mEq/L Chloride 103 (98-107) mEq/L Carbon Dioxide 16 L (21-32) mEq/L Anion Gap 22.2 H (5-15) BUN 13 (7-18) mg/dL Creatinine 0.9 (0.55-1.02) mg/dL Est Cr Clr Drug Dosing 52.24 mL/min Estimated GFR (MDRD) > 60 (>60) mL/min BUN/Creatinine Ratio 14.4 (14-18) Glucose 98 (80-115) mg/dL Calcium 8.4 L (8.5-10.1) mg/dL Magnesium (1.8-2.4) mg/dl C-Reactive Protein (<1.0) mg/dL Lipase (73-393) U/L [place] Results Last 24 Hours: Microbiology 07/22/17 09:30 Streptococcus pneumoniae Antigen (M - Final Urine 07/22/17 11:35 Respiratory Virus Panel (PCR) ([place]) - Final Nasopharyngeal Swab Med Orders - Current: Current Medications Duloxetine HCl (Cymbalta) 60 mg PO DAILY [facility] Last Admin: 07/23/17 08:12 Dose: 60 mg Enoxaparin Sodium (Lovenox) 40 mg SUBCUT DAILY [facility] Gabapentin (Neurontin) 300 mg PO BEDTIME [facility] Last Admin: 07/22/17 20:49 Dose: 300 mg Hydromorphone HCl (Dilaudid) 0.5 mg IVPUSH Q4H PRN PRN Reason: Pain Last Admin: 07/23/17 08:06 Dose: 0.5 mg Ceftriaxone Sodium 2 gm/ (Sodium Chloride) 100 mls @ 200 mls/hr IV Q24H [facility] Last Admin: 07/22/17 17:28 Dose: 200 mls/hr Ketorolac Tromethamine (Toradol) 15 mg IVPUSH Q8H PRN PRN Reason: Pain Levothyroxine Sodium (Levothyroxine) 25 mcg PO ACBRK [facility] Last Admin: 07/23/17 06:14 Dose: 25 mcg Methylprednisolone Sodium Succinate (Solu-Medrol) 40 mg IVPUSH Q12H [facility] Last Admin: 07/23/17 03:28 Dose: 40 mg Ondansetron HCl (Zofran Odt) 8 mg PO Q8H PRN PRN Reason: Nausea/Vomiting Sodium Chloride (Saline Flush) 10 ml FLUSH ASDIRECTED PRN PRN Reason: Keep Vein Open Last Admin: 07/21/17 14:25 Dose: 10 ml Discontinued Medications Diatrizoate Meglum/Diatrizoate Sod (Gastrografin 37%) 90 ml PO ONETIME ONE Stop: 07/21/17 17:17 Last Admin: 07/21/17 18:24 Dose: 90 ml Hydromorphone HCl (Dilaudid) 0.5 mg IVPUSH ONETIME ONE Stop: 07/21/17 15:38 Last Admin: 07/21/17 15:44 Dose: 0.5 mg Hydromorphone HCl (Dilaudid) 0.5 mg IVPUSH ONETIME ONE Stop: 07/21/17 17:52 Last Admin: 07/21/17 17:56 Dose: 0.5 mg Hydromorphone HCl (Dilaudid) 0.5 mg IVPUSH ONETIME ONE Stop: 07/22/17 09:33 Last Admin: 07/22/17 09:38 Dose: 0.5 mg Potassium Chloride 10 meq/ (Premix) 100 mls @ 50 mls/hr IV ASDIRECTED ONE Stop: 07/21/17 17:27 Last Admin: 07/21/17 15:37 Dose: 50 mls/hr Sodium Chloride (Normal Saline) 1,000 mls @ 150 mls/hr IV ASDIRECTED [facility] Last Infusion: 07/21/17 19:59 Dose: 999 mls/hr Sodium Chloride (Normal Saline) 1,000 mls @ 999 mls/hr IV ONETIME [facility] Potassium Chloride/Sodium Chloride (1/2 Ns With 20 Meq Kcl) 1,000 mls @ 150 mls /hr IV ASDIRECTED [facility] Last Admin: 07/23/17 04:00 Dose: 150 mls/hr Magnesium Sulfate 2 gm/ Premix 50 mls @ 25 mls/hr IV Q1H [facility] Stop: 07/22/17 07:32 Last Admin: 07/22/17 05:38 Dose: 25 mls/hr Magnesium Sulfate (Magnesium Sulfate 2 Gm In Water 50 Ml) Confirm Administered Dose 50 mls @ as directed .ROUTE .STK-MED ONE Stop: 07/22/17 05:31 Last Admin: 07/22/17 07:18 Dose: Not Given Magnesium Sulfate 2 gm/ Premix 50 mls @ 25 mls/hr IV ONETIME ONE Stop: 07/22/17 09:29 Last Admin: 07/22/17 08:07 Dose: 25 mls/hr Magnesium Sulfate 2 gm/ Premix 50 mls @ 25 mls/hr IV ONETIME ONE Stop: 07/22/17 15:59 Last Admin: 07/22/17 13:35 Dose: 25 mls/hr Ketorolac Tromethamine (Toradol) 30 mg IVPUSH ONETIME ONE Stop: 07/23/17 12:12 Pantoprazole Sodium (Protonix Iv) 40 mg IVPUSH Q12H [facility] Last Admin: 07/23/17 09:30 Dose: Not Given Potassium Chloride (Potassium Chloride) 60 meq PO DAILY [facility] Stop: 07/24/17 09:01 Last Admin: 07/22/17 08:30 Dose: Not Given Potassium Chloride (Klor-Con M20) 60 meq PO DAILY [facility] Stop: 07/24/17 09:01 Potassium Chloride (Klor-Con M20) 60 meq PO BID [facility] Stop: 07/23/17 09:01 Last Admin: 07/23/17 09:27 Dose: Not Given Tramadol HCl (Ultram) 50 mg PO TID PRN PRN Reason: Pain Last Admin: 07/23/17 06:27 Dose: 50 mg - Exam Quality Assessment: Supplemental Oxygen, DVT Prophylaxis General: Alert, Oriented, Cooperative, No Acute Distress HEENT: Pupils Equal, Pupils Reactive, EOMI Neck: Supple, Trachea Midline, No JVD Lungs: Normal Respiratory Effort Cardiovascular: Regular Rate, Regular Rhythm GI/Abdominal Exam: Normal Bowel Sounds, Soft, Non-Tender, No Organomegaly, No Distention (Female) Exam: Deferred Back Exam: Normal Inspection Extremities: Normal Inspection, No Pedal Edema Skin: Warm Neurological: No New Focal Deficit, Normal Gait, Normal Speech Psy/Mental Status: Alert, Normal Affect, Normal Mood - Problem List & Annotations (1) Hypomagnesemia SNOMED Code(s): 445687090 Code(s): E83.42 - HYPOMAGNESEMIA Status: Acute Current Visit: Yes (2) History of thrombocytosis SNOMED Code(s): 703557823 Code(s): Z86.2 - PRSNL HISTORY OF DIS OF THE BLD/BLD-FORM ORG/IMMUN MECHNSM Status: Acute Current Visit: Yes (3) COPD (chronic obstructive pulmonary disease) SNOMED Code(s): 22015480 Code(s): J44.9 - CHRONIC OBSTRUCTIVE PULMONARY DISEASE, UNSPECIFIED Status : Acute Current Visit: Yes (4) Anorexia SNOMED Code(s): 75336654 Code(s): R63.0 - ANOREXIA Status: Acute Current Visit: Yes (5) Hypokalemia SNOMED Code(s): 61182553 Code(s): E87.6 - HYPOKALEMIA Status: Acute Current Visit: Yes (6) Pancreatitis SNOMED Code(s): 12816986 Code(s): K85.90 - ACUTE PANCREATITIS WITHOUT NECROSIS OR INFECTION, UNSP Status: Acute Current Visit: Yes Qualifiers: Chronicity: acute Pancreatitis type: unspecified pancreatitis type Acute pancreatitis complication: unspecified Qualified Code(s): K85.90 - Acute pancreatitis without necrosis or infection, unspecified (7) Renal insufficiency SNOMED Code(s): 710344064 Code(s): N28.9 - DISORDER OF KIDNEY AND URETER, UNSPECIFIED Status: Acute Current Visit: Yes - Problem List Review Problem List Initiated/Reviewed/Updated: Yes - My Orders Last 24 Hours: My Active Orders 07/22/17 16:00 cefTRIAXone [Rocephin] 2 gm Sodium Chloride 0.9% [Normal Saline] 100 ml IV Q24H methylPREDNISolone Sod Succ [Solu-MEDROL] 40 mg IVPUSH Q12H 07/23/17 12:00 Enoxaparin [Lovenox] 40 mg SUBCUT DAILY 07/23/17 12:11 Ketorolac [Toradol] 15 mg IVPUSH Q8H PRN 07/23/17 12:12 Ondansetron [Zofran ODT] 8 mg PO Q8H PRN 07/24/17 05:00 CBC WITH AUTO DIFF [HEME] DAILY CRP [C-REACTIVE PROTEIN] [CHEM] DAILY LIPASE [CHEM] DAILY MAGNESIUM [CHEM] DAILY 07/25/17 05:00 CBC WITH AUTO DIFF [HEME] DAILY CRP [C-REACTIVE PROTEIN] [CHEM] DAILY LIPASE [CHEM] DAILY MAGNESIUM [CHEM] DAILY - Plan Plan:: Impression: Anorexia (unspecified), acute on chronic Acute pancreatitis ~resolved 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 ARF~resolved Nausea Plan: Zofran for N/V IV ATB/Steroids Stop Tramadol; start Toradol MS telemetry Psych consult re: eating disorder Infectious work up Heme work up; obtain old EMR, no comment regarding platelet ct on recent clinic visit DVT/GI prophylaxis Code status: CPR only
[2017-07-23] MEDS: Enoxaparin 40 MG/0.4 ML Syringe SUBCUT SCH (12:36)
[2017-07-23] MEDS: cefTRIAXone 2 GM in Sodium Chloride 0.9% 100 ML IV SCH (15:24)
[2017-07-23] MEDS: Gabapentin 300 MG Cap PO SCH ×2 (19:54→20:08)
[2017-07-23] MEDS: Ketorolac 15 MG/ML SDV IVPUSH PRN (19:54)
[2017-07-24] MEDS: Ketorolac 15 MG/ML SDV IVPUSH PRN ×2 (05:05→13:23)
[2017-07-24] MEDS: Levothyroxine 25 MCG Tab PO SCH (05:05)
[2017-07-24] MEDS: methylPREDNISolone Sodium Succinate 40 MG/1 ML SDV IVPUSH SCH ×2 (05:05→16:15)
[2017-07-24] MEDS: Enoxaparin 40 MG/0.4 ML Syringe SUBCUT SCH (09:19)
[2017-07-24] MEDS: HYDROmorphone 0.5 MG/0.5 ML Syringe IVPUSH PRN ×3 (09:20→20:38)
[2017-07-24] MEDS: DULoxetine 30 MG Cap PO SCH (09:24)
[2017-07-24] MEDS: Ondansetron 4 MG Tab.DIS PO PRN (09:24)
--- NOTE | 2017-07-24 13:06 | PCM.PN ---
- General Info Date of Service: 07/24/17 Functional Status: Reports: Pain Controlled, Tolerating Diet, Ambulating, Urinating - Review of Systems General: Reports: Weakness HEENT: Reports: No Symptoms Pulmonary: Reports: Shortness of Breath Cardiovascular: Reports: No Symptoms Gastrointestinal: Reports: No Symptoms Genitourinary: Reports: No Symptoms Musculoskeletal: Reports: Neck Pain (decreased left side neck and facial pain.) Skin: Reports: No Symptoms Neurological: Reports: No Symptoms Psychiatric: Reports: No Symptoms - Patient Data Vitals - Most Recent: Last Vital Signs Temp 36.4 C 07/24/17 08:07 Pulse 97 07/24/17 09:26 Resp 19 07/24/17 08:07 BP 139/79 07/24/17 08:07 Pulse Ox 95 07/24/17 09:26 Weight - Most Recent: 58.173 kg I&O - Last 24 Hours: Intake & Output 07/23/17 07/24/17 07/24/17 22:59 06:59 14:59 Intake Total 1605 600 Output Total 1500 1050 Balance 105 -450 Lab Results Last 24 Hours: Laboratory Results - last 24 hr 07/24/17 07/24/17 07/24/17 Range/Units 06:45 06:45 10:52 WBC 17.96 H (3.98-10.04) K/mm3 RBC 3.01 L (3.98-5.22) M/mm3 Hgb 8.5 L 8.7 L (11.2-15.7) gm/L Hct 28.1 L 28.2 L (34.1-44.9) % MCV 93.4 (79.4-94.8) fl MCH 28.2 (25.6-32.2) pg MCHC 30.2 L (32.2-35.5) g/dl RDW Std Deviation 50.0 H (36.4-46.3) fL Plt Count 929 H* (182-369) K/mm3 MPV 9.0 L (9.4-12.3) fl Neut % (Auto) 91.8 H (34.0-71.1) % Lymph % (Auto) 4.8 L (19.3-51.7) % [place] % (Auto) 3.0 L (4.7-12.5) % Eos % (Auto) 0 L (0.7-5.8) Baso % (Auto) 0.1 (0.1-1.2) % Neut # (Auto) 16.49 H (1.56-6.13) K/mm3 Lymph # (Auto) 0.87 L (1.18-3.74) K/mm3 [place] # (Auto) 0.53 H (0.24-0.36) K/mm3 Eos # (Auto) 0.00 L (0.04-0.36) K/mm3 Baso # (Auto) 0.01 (0.01-0.08) K/mm3 Manual Slide Review Abnormal smear Sodium (136-145) mEq/L Potassium (3.5-5.1) mEq/L Chloride (98-107) mEq/L Carbon Dioxide (21-32) mEq/L Anion Gap (5-15) BUN (7-18) mg/dL Creatinine (0.55-1.02) mg/dL Est Cr Clr Drug Dosing mL/min Estimated GFR (MDRD) (>60) mL/min BUN/Creatinine Ratio (14-18) Glucose (80-115) mg/dL Calcium (8.5-10.1) mg/dL Magnesium 2.3 (1.8-2.4) mg/dl C-Reactive Protein 17.8 H* (<1.0) mg/dL Lipase 632 H (73-393) U/L 07/24/17 Range/Units 10:52 WBC (3.98-10.04) K/mm3 RBC (3.98-5.22) M/mm3 Hgb (11.2-15.7) gm/L Hct (34.1-44.9) % MCV (79.4-94.8) fl MCH (25.6-32.2) pg MCHC (32.2-35.5) g/dl RDW Std Deviation (36.4-46.3) fL Plt Count (182-369) K/mm3 MPV (9.4-12.3) fl Neut % (Auto) (34.0-71.1) % Lymph % (Auto) (19.3-51.7) % [place] % (Auto) (4.7-12.5) % Eos % (Auto) (0.7-5.8) Baso % (Auto) (0.1-1.2) % Neut # (Auto) (1.56-6.13) K/mm3 Lymph # (Auto) (1.18-3.74) K/mm3 [place] # (Auto) (0.24-0.36) K/mm3 Eos # (Auto) (0.04-0.36) K/mm3 Baso # (Auto) (0.01-0.08) K/mm3 Manual Slide Review Sodium 139 (136-145) mEq/L Potassium 4.5 (3.5-5.1) mEq/L Chloride 106 (98-107) mEq/L Carbon Dioxide 15 L (21-32) mEq/L Anion Gap 22.5 H (5-15) BUN 13 (7-18) mg/dL Creatinine 0.9 (0.55-1.02) mg/dL Est Cr Clr Drug Dosing 52.22 mL/min Estimated GFR (MDRD) > 60 (>60) mL/min BUN/Creatinine Ratio 14.4 (14-18) Glucose 96 (80-115) mg/dL Calcium 9.1 (8.5-10.1) mg/dL Magnesium (1.8-2.4) mg/dl C-Reactive Protein (<1.0) mg/dL Lipase (73-393) U/L [place] Results Last 24 Hours: Microbiology 07/22/17 09:30 Streptococcus pneumoniae Antigen (M - Final Urine Med Orders - Current: Current Medications Duloxetine HCl (Cymbalta) 60 mg PO DAILY [facility] Last Admin: 07/24/17 09:24 Dose: 60 mg Enoxaparin Sodium (Lovenox) 40 mg SUBCUT DAILY [facility] Last Admin: 07/24/17 09:19 Dose: 40 mg Gabapentin (Neurontin) 300 mg PO BEDTIME [facility] Last Admin: 07/23/17 20:08 Dose: Not Given Hydromorphone HCl (Dilaudid) 0.5 mg IVPUSH Q4H PRN PRN Reason: Pain Last Admin: 07/24/17 09:20 Dose: 0.5 mg Ceftriaxone Sodium 2 gm/ (Sodium Chloride) 100 mls @ 200 mls/hr IV Q24H [facility] Last Admin: 07/23/17 15:24 Dose: 200 mls/hr Ketorolac Tromethamine (Toradol) 15 mg IVPUSH Q8H PRN PRN Reason: Pain Last Admin: 07/24/17 05:05 Dose: 15 mg Levothyroxine Sodium (Levothyroxine) 25 mcg PO ACBRK [facility] Last Admin: 07/24/17 05:05 Dose: 25 mcg Methylprednisolone Sodium Succinate (Solu-Medrol) 40 mg IVPUSH Q12H [facility] Last Admin: 07/24/17 05:05 Dose: 40 mg Ondansetron HCl (Zofran Odt) 8 mg PO Q8H PRN PRN Reason: Nausea/Vomiting Last Admin: 07/24/17 09:24 Dose: 8 mg Sodium Chloride (Saline Flush) 10 ml FLUSH ASDIRECTED PRN PRN Reason: Keep Vein Open Last Admin: 07/21/17 14:25 Dose: 10 ml Discontinued Medications Diatrizoate Meglum/Diatrizoate Sod (Gastrografin 37%) 90 ml PO ONETIME ONE Stop: 07/21/17 17:17 Last Admin: 07/21/17 18:24 Dose: 90 ml Hydromorphone HCl (Dilaudid) 0.5 mg IVPUSH ONETIME ONE Stop: 07/21/17 15:38 Last Admin: 07/21/17 15:44 Dose: 0.5 mg Hydromorphone HCl (Dilaudid) 0.5 mg IVPUSH ONETIME ONE Stop: 07/21/17 17:52 Last Admin: 07/21/17 17:56 Dose: 0.5 mg Hydromorphone HCl (Dilaudid) 0.5 mg IVPUSH ONETIME ONE Stop: 07/22/17 09:33 Last Admin: 07/22/17 09:38 Dose: 0.5 mg Potassium Chloride 10 meq/ (Premix) 100 mls @ 50 mls/hr IV ASDIRECTED ONE Stop: 07/21/17 17:27 Last Admin: 07/21/17 15:37 Dose: 50 mls/hr Sodium Chloride (Normal Saline) 1,000 mls @ 150 mls/hr IV ASDIRECTED [facility] Last Infusion: 07/21/17 19:59 Dose: 999 mls/hr Sodium Chloride (Normal Saline) 1,000 mls @ 999 mls/hr IV ONETIME [facility] Potassium Chloride/Sodium Chloride (1/2 Ns With 20 Meq Kcl) 1,000 mls @ 150 mls /hr IV ASDIRECTED [facility] Last Admin: 07/23/17 04:00 Dose: 150 mls/hr Magnesium Sulfate 2 gm/ Premix 50 mls @ 25 mls/hr IV Q1H [facility] Stop: 07/22/17 07:32 Last Admin: 07/22/17 05:38 Dose: 25 mls/hr Magnesium Sulfate (Magnesium Sulfate 2 Gm In Water 50 Ml) Confirm Administered Dose 50 mls @ as directed .ROUTE .STK-MED ONE Stop: 07/22/17 05:31 Last Admin: 07/22/17 07:18 Dose: Not Given Magnesium Sulfate 2 gm/ Premix 50 mls @ 25 mls/hr IV ONETIME ONE Stop: 07/22/17 09:29 Last Admin: 07/22/17 08:07 Dose: 25 mls/hr Magnesium Sulfate 2 gm/ Premix 50 mls @ 25 mls/hr IV ONETIME ONE Stop: 07/22/17 15:59 Last Admin: 07/22/17 13:35 Dose: 25 mls/hr Ketorolac Tromethamine (Toradol) 30 mg IVPUSH ONETIME ONE Stop: 07/23/17 12:12 Last Admin: 07/23/17 12:28 Dose: 30 mg Pantoprazole Sodium (Protonix Iv) 40 mg IVPUSH Q12H [facility] Last Admin: 07/23/17 09:30 Dose: Not Given Potassium Chloride (Potassium Chloride) 60 meq PO DAILY [facility] Stop: 07/24/17 09:01 Last Admin: 07/22/17 08:30 Dose: Not Given Potassium Chloride (Klor-Con M20) 60 meq PO DAILY [facility] Stop: 07/24/17 09:01 Potassium Chloride (Klor-Con M20) 60 meq PO BID [facility] Stop: 07/23/17 09:01 Last Admin: 07/23/17 09:27 Dose: Not Given Tramadol HCl (Ultram) 50 mg PO TID PRN PRN Reason: Pain Last Admin: 07/23/17 06:27 Dose: 50 mg - Exam Quality Assessment: DVT Prophylaxis General: Alert, Oriented, Cooperative, No Acute Distress HEENT: Pupils Equal, Pupils Reactive, EOMI Neck: Supple, Trachea Midline, No JVD Lungs: Normal Respiratory Effort Cardiovascular: Regular Rate, Regular Rhythm GI/Abdominal Exam: Normal Bowel Sounds, Soft, Non-Tender, No Organomegaly, No Distention (Female) Exam: Deferred Back Exam: Normal Inspection Extremities: Normal Inspection Skin: Warm Neurological: No New Focal Deficit, Normal Gait, Normal Speech Psy/Mental Status: Alert, Normal Affect, Normal Mood - Problem List & Annotations (1) Hypomagnesemia SNOMED Code(s): 412357013 Code(s): E83.42 - HYPOMAGNESEMIA Status: Acute Current Visit: Yes (2) History of thrombocytosis SNOMED Code(s): 846284550 Code(s): Z86.2 - PRSNL HISTORY OF DIS OF THE BLD/BLD-FORM ORG/IMMUN MECHNSM Status: Acute Current Visit: Yes (3) COPD (chronic obstructive pulmonary disease) SNOMED Code(s): 74067108 Code(s): J44.9 - CHRONIC OBSTRUCTIVE PULMONARY DISEASE, UNSPECIFIED Status : Acute Current Visit: Yes (4) Anorexia SNOMED Code(s): 55343268 Code(s): R63.0 - ANOREXIA Status: Acute Current Visit: Yes (5) Hypokalemia SNOMED Code(s): 09034127 Code(s): E87.6 - HYPOKALEMIA Status: Acute Current Visit: Yes (6) Pancreatitis SNOMED Code(s): 02570368 Code(s): K85.90 - ACUTE PANCREATITIS WITHOUT NECROSIS OR INFECTION, UNSP Status: Acute Current Visit: Yes Qualifiers: Chronicity: acute Pancreatitis type: unspecified pancreatitis type Acute pancreatitis complication: unspecified Qualified Code(s): K85.90 - Acute pancreatitis without necrosis or infection, unspecified (7) Renal insufficiency SNOMED Code(s): 307817691 Code(s): N28.9 - DISORDER OF KIDNEY AND URETER, UNSPECIFIED Status: Acute Current Visit: Yes - Problem List Review Problem List Initiated/Reviewed/Updated: Yes - My Orders Last 24 Hours: My Active Orders 07/23/17 12:11 Ketorolac [Toradol] 15 mg IVPUSH Q8H PRN 07/23/17 12:12 Ondansetron [Zofran ODT] 8 mg PO Q8H PRN 07/23/17 15:43 Consult to Physician [CONS] Routine 07/23/17 15:44 Notify Provider Consults [RC] ASDIRECTED 07/23/17 Dinner Soft Diet [DIET] 07/25/17 05:00 CBC WITH AUTO DIFF [HEME] DAILY CRP [C-REACTIVE PROTEIN] [CHEM] DAILY LIPASE [CHEM] DAILY MAGNESIUM [CHEM] DAILY - Plan Plan:: Impression: Anorexia (unspecified), acute on chronic Acute pancreatitis ~resolved Thrombocytosis, unspecified; 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 ARF~resolved Plan: Zofran for N/V IV ATB/Steroids Stop Tramadol; start Toradol [facility] telemetry Psych consult re: eating disorder Infectious work up Heme work up; obtain old EMR, no comment regarding platelet ct on recent clinic visit Check with pharmacy re: Hydroxyurea DVT/GI prophylaxis Code status: CPR only LOS>96 hours, gradual response to treatment.
[2017-07-24] MEDS: cefTRIAXone 2 GM in Sodium Chloride 0.9% 100 ML IV SCH (16:16)
[2017-07-24] MEDS: Gabapentin 300 MG Cap PO SCH (20:37)
[2017-07-25] MEDS: HYDROmorphone 0.5 MG/0.5 ML Syringe IVPUSH PRN ×3 (02:57→12:29)
[2017-07-25] MEDS: methylPREDNISolone Sodium Succinate 40 MG/1 ML SDV IVPUSH SCH (03:02)
[2017-07-25] MEDS: Levothyroxine 25 MCG Tab PO SCH (06:40)
[2017-07-25] MEDS: DULoxetine 30 MG Cap PO SCH (08:34)
[2017-07-25] MEDS: Enoxaparin 40 MG/0.4 ML Syringe SUBCUT SCH (08:35)
[2017-07-25] MEDS ORDERED: predniSONE 10 MG Tab PO SCH ×2 (11:45)
[2017-07-25] MEDS: predniSONE 20 MG Tab PO SCH (12:29)
[2017-07-25] MEDS: Hydroxyurea 500 MG Cap PO SCH (16:26)
[2017-07-25] MEDS: cefTRIAXone 2 GM Vial IVPUSH SCH (16:27)
[2017-07-25] MEDS: traMADol 50 MG Tab PO PRN (16:27)
--- NOTE | 2017-07-25 17:10 | PCM.PN ---
- General Info Date of Service: 07/25/17 Functional Status: Reports: Tolerating Diet, Ambulating, Urinating - Review of Systems General: Reports: No Symptoms HEENT: Reports: No Symptoms Pulmonary: Reports: No Symptoms Cardiovascular: Reports: No Symptoms Gastrointestinal: Reports: No Symptoms Genitourinary: Reports: No Symptoms Musculoskeletal: Reports: No Symptoms Skin: Reports: No Symptoms Neurological: Reports: No Symptoms Psychiatric: Reports: No Symptoms - Patient Data Vitals - Most Recent: Last Vital Signs Temp 36.6 C 07/25/17 02:24 Pulse 93 07/25/17 08:33 Resp 16 07/25/17 08:33 BP 130/82 07/25/17 08:33 Pulse Ox 100 07/25/17 08:33 Weight - Most Recent: 58.173 kg I&O - Last 24 Hours: Intake & Output 07/25/17 07/25/17 07/25/17 06:59 14:59 22:59 Intake Total 700 120 60 Output Total 750 Balance -50 120 60 Lab Results Last 24 Hours: Laboratory Results - last 24 hr 07/25/17 07/25/17 Range/Units 06:40 06:40 WBC 22.78 H (3.98-10.04) K/mm3 RBC 3.38 L (3.98-5.22) M/mm3 Hgb 9.7 L (11.2-15.7) gm/L Hct 31.5 L (34.1-44.9) % MCV 93.2 (79.4-94.8) fl MCH 28.7 (25.6-32.2) pg MCHC 30.8 L (32.2-35.5) g/dl RDW Std Deviation 50.2 H (36.4-46.3) fL Plt Count 800 H (182-369) K/mm3 MPV 9.5 (9.4-12.3) fl Neut % (Auto) 94.4 H (34.0-71.1) % Lymph % (Auto) 3.9 L (19.3-51.7) % [place] % (Auto) 1.1 L (4.7-12.5) % Eos % (Auto) 0 L (0.7-5.8) Baso % (Auto) 0.0 L (0.1-1.2) % Neut # (Auto) 21.49 H (1.56-6.13) K/mm3 Lymph # (Auto) 0.88 L (1.18-3.74) K/mm3 [place] # (Auto) 0.25 (0.24-0.36) K/mm3 Eos # (Auto) 0.01 L (0.04-0.36) K/mm3 Baso # (Auto) 0.01 (0.01-0.08) K/mm3 Manual Slide Review Abnormal smear Magnesium 2.3 (1.8-2.4) mg/dl C-Reactive Protein 8.3 H* (<1.0) mg/dL Lipase 1160 H (73-393) U/L Med Orders - Current: Current Medications Aspirin (Halfprin) 81 mg PO DAILY [facility] Ceftriaxone Sodium (Rocephin) 2 gm IVPUSH Q24H [facility] Last Admin: 07/25/17 16:27 Dose: 2 gm Duloxetine HCl (Cymbalta) 90 mg PO DAILY [facility] Last Admin: 07/25/17 08:34 Dose: 90 mg Enoxaparin Sodium (Lovenox) 40 mg SUBCUT DAILY [facility] Last Admin: 07/25/17 08:35 Dose: 40 mg Gabapentin (Neurontin) 300 mg PO BEDTIME [facility] Last Admin: 07/24/17 20:37 Dose: 300 mg Hydroxyurea (Hydrea) 500 mg PO DAILY [facility] Last Admin: 07/25/17 16:26 Dose: Not Given Ketorolac Tromethamine (Toradol) 15 mg IVPUSH Q8H PRN PRN Reason: Pain Last Admin: 07/24/17 13:23 Dose: 15 mg Levothyroxine Sodium (Levothyroxine) 25 mcg PO ACBRK [facility] Last Admin: 07/25/17 06:40 Dose: 25 mcg Mirtazapine (Remeron) 15 mg PO BEDTIME [facility] Ondansetron HCl (Zofran Odt) 8 mg PO Q8H PRN PRN Reason: Nausea/Vomiting Last Admin: 07/24/17 09:24 Dose: 8 mg Prednisone (Prednisone) 40 mg PO DAILY [facility] Stop: 07/27/17 09:01 Last Admin: 07/25/17 12:29 Dose: 40 mg Prednisone (Prednisone) 30 mg PO DAILY [facility] Stop: 07/30/17 09:01 Prednisone (Prednisone) 20 mg PO DAILY [facility] Stop: 08/02/17 09:01 Prednisone (Prednisone) 10 mg PO DAILY [facility] Stop: 08/05/17 09:01 Sodium Chloride (Saline Flush) 10 ml FLUSH ASDIRECTED PRN PRN Reason: Keep Vein Open Last Admin: 07/21/17 14:25 Dose: 10 ml Tramadol HCl (Ultram) 50 mg PO Q8H PRN PRN Reason: Pain Last Admin: 07/25/17 16:27 Dose: 50 mg Discontinued Medications Diatrizoate Meglum/Diatrizoate Sod (Gastrografin 37%) 90 ml PO ONETIME ONE Stop: 07/21/17 17:17 Last Admin: 07/21/17 18:24 Dose: 90 ml Duloxetine HCl (Cymbalta) 60 mg PO DAILY [facility] Last Admin: 07/24/17 09:24 Dose: 60 mg Hydromorphone HCl (Dilaudid) 0.5 mg IVPUSH ONETIME ONE Stop: 07/21/17 15:38 Last Admin: 07/21/17 15:44 Dose: 0.5 mg Hydromorphone HCl (Dilaudid) 0.5 mg IVPUSH ONETIME ONE Stop: 07/21/17 17:52 Last Admin: 07/21/17 17:56 Dose: 0.5 mg Hydromorphone HCl (Dilaudid) 0.5 mg IVPUSH Q4H PRN PRN Reason: Pain Last Admin: 07/25/17 12:29 Dose: 0.5 mg Hydromorphone HCl (Dilaudid) 0.5 mg IVPUSH ONETIME ONE Stop: 07/22/17 09:33 Last Admin: 07/22/17 09:38 Dose: 0.5 mg Potassium Chloride 10 meq/ (Premix) 100 mls @ 50 mls/hr IV ASDIRECTED ONE Stop: 07/21/17 17:27 Last Admin: 07/21/17 15:37 Dose: 50 mls/hr Sodium Chloride (Normal Saline) 1,000 mls @ 150 mls/hr IV ASDIRECTED [facility] Last Infusion: 07/21/17 19:59 Dose: 999 mls/hr Sodium Chloride (Normal Saline) 1,000 mls @ 999 mls/hr IV ONETIME [facility] Potassium Chloride/Sodium Chloride (1/2 Ns With 20 Meq Kcl) 1,000 mls @ 150 mls /hr IV ASDIRECTED [facility] Last Admin: 07/23/17 04:00 Dose: 150 mls/hr Magnesium Sulfate 2 gm/ Premix 50 mls @ 25 mls/hr IV Q1H [facility] Stop: 07/22/17 07:32 Last Admin: 07/22/17 05:38 Dose: 25 mls/hr Magnesium Sulfate (Magnesium Sulfate 2 Gm In Water 50 Ml) Confirm Administered Dose 50 mls @ as directed .ROUTE .STK-MED ONE Stop: 07/22/17 05:31 Last Admin: 07/22/17 07:18 Dose: Not Given Magnesium Sulfate 2 gm/ Premix 50 mls @ 25 mls/hr IV ONETIME ONE Stop: 07/22/17 09:29 Last Admin: 07/22/17 08:07 Dose: 25 mls/hr Magnesium Sulfate 2 gm/ Premix 50 mls @ 25 mls/hr IV ONETIME ONE Stop: 07/22/17 15:59 Last Admin: 07/22/17 13:35 Dose: 25 mls/hr Ceftriaxone Sodium 2 gm/ (Sodium Chloride) 100 mls @ 200 mls/hr IV Q24H [facility] Last Admin: 07/24/17 16:16 Dose: 200 mls/hr Ketorolac Tromethamine (Toradol) 30 mg IVPUSH ONETIME ONE Stop: 07/23/17 12:12 Last Admin: 07/23/17 12:28 Dose: 30 mg Methylprednisolone Sodium Succinate (Solu-Medrol) 40 mg IVPUSH Q12H [facility] Last Admin: 07/25/17 03:02 Dose: 40 mg Pantoprazole Sodium (Protonix Iv) 40 mg IVPUSH Q12H [facility] Last Admin: 07/23/17 09:30 Dose: Not Given Potassium Chloride (Potassium Chloride) 60 meq PO DAILY [facility] Stop: 07/24/17 09:01 Last Admin: 07/22/17 08:30 Dose: Not Given Potassium Chloride (Klor-Con M20) 60 meq PO DAILY [facility] Stop: 07/24/17 09:01 Potassium Chloride (Klor-Con M20) 60 meq PO BID [facility] Stop: 07/23/17 09:01 Last Admin: 07/23/17 09:27 Dose: Not Given Prednisone (Prednisone) 0 mg PO .Daily Taper [facility] PRN Reason: Taper Stop: 08/06/17 11:44 Tramadol HCl (Ultram) 50 mg PO TID PRN PRN Reason: Pain Last Admin: 07/23/17 06:27 Dose: 50 mg - Exam Quality Assessment: DVT Prophylaxis General: Alert, Oriented, Cooperative, No Acute Distress HEENT: Pupils Equal, Pupils Reactive, EOMI Neck: Supple, Trachea Midline, No JVD Lungs: Normal Respiratory Effort Cardiovascular: Regular Rate, Regular Rhythm GI/Abdominal Exam: Normal Bowel Sounds, Soft, Non-Tender, No Organomegaly, No Distention (Female) Exam: Deferred Back Exam: Normal Inspection Extremities: Normal Inspection Skin: Warm Neurological: No New Focal Deficit, Normal Gait, Normal Speech Psy/Mental Status: Alert, Normal Affect, Normal Mood - Problem List & Annotations (1) Hypomagnesemia SNOMED Code(s): 755172139 Code(s): E83.42 - HYPOMAGNESEMIA Status: Acute Current Visit: Yes (2) History of thrombocytosis SNOMED Code(s): 094703757 Code(s): Z86.2 - PRSNL HISTORY OF DIS OF THE BLD/BLD-FORM ORG/IMMUN MECHNSM Status: Acute Current Visit: Yes (3) COPD (chronic obstructive pulmonary disease) SNOMED Code(s): 71096569 Code(s): J44.9 - CHRONIC OBSTRUCTIVE PULMONARY DISEASE, UNSPECIFIED Status : Acute Current Visit: Yes (4) Anorexia SNOMED Code(s): 48820965 Code(s): R63.0 - ANOREXIA Status: Acute Current Visit: Yes (5) Hypokalemia SNOMED Code(s): 07131373 Code(s): E87.6 - HYPOKALEMIA Status: Acute Current Visit: Yes (6) Pancreatitis SNOMED Code(s): 82250573 Code(s): K85.90 - ACUTE PANCREATITIS WITHOUT NECROSIS OR INFECTION, UNSP Status: Acute Current Visit: Yes Qualifiers: Chronicity: acute Pancreatitis type: unspecified pancreatitis type Acute pancreatitis complication: unspecified Qualified Code(s): K85.90 - Acute pancreatitis without necrosis or infection, unspecified (7) Renal insufficiency SNOMED Code(s): 318029095 Code(s): N28.9 - DISORDER OF KIDNEY AND URETER, UNSPECIFIED Status: Acute Current Visit: Yes - Problem List Review Problem List Initiated/Reviewed/Updated: Yes - My Orders Last 24 Hours: My Active Orders 07/25/17 12:00 predniSONE 40 mg PO DAILY 07/25/17 15:46 traMADol [Ultram] 50 mg PO Q8H PRN 07/25/17 16:00 Hydroxyurea [Hydrea] 500 mg PO DAILY cefTRIAXone [Rocephin] 2 gm IVPUSH Q24H 07/26/17 09:00 Aspirin [Halfprin] 81 mg PO DAILY 07/28/17 09:00 predniSONE 30 mg PO DAILY 07/31/17 09:00 predniSONE 20 mg PO DAILY 08/03/17 09:00 predniSONE 10 mg PO DAILY - Plan Plan:: Impression: Anorexia (unspecified), acute on chronic Acute pancreatitis ~resolved Thrombocytosis, unspecified; 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 ARF~resolved Plan: Zofran for N/V IV ATB-->change 07/26/17/Steroids-->change to prednisone Stop Tramadol; start Toradol; stop dilaudid [facility] telemetry Psych consult re: eating disorder Infectious work up Heme work up; obtain old EMR, no comment regarding platelet ct on recent clinic visit Check with pharmacy re: Hydroxyurea DVT/GI prophylaxis Code status: CPR only LOS>96 hours, gradual response to treatment.
[2017-07-25] MEDS: Ketorolac 15 MG/ML SDV IVPUSH PRN (18:09)
[2017-07-25] MEDS: Gabapentin 300 MG Cap PO SCH (20:14)
[2017-07-25] MEDS: Mirtazapine 15 MG Tab PO SCH (20:15)
[2017-07-26] MEDS: Levothyroxine 25 MCG Tab PO SCH (05:34)
[2017-07-26] MEDS: Enoxaparin 40 MG/0.4 ML Syringe SUBCUT SCH (09:07)
[2017-07-26] MEDS: DULoxetine 30 MG Cap PO SCH (09:07)
[2017-07-26] MEDS: predniSONE 20 MG Tab PO SCH (09:08)
[2017-07-26] MEDS: Aspirin 81 MG Tab.EC PO SCH (09:08)
[2017-07-26] MEDS: traMADol 50 MG Tab PO PRN ×2 (09:08→20:53)
[2017-07-26] MEDS: Ketorolac 15 MG/ML SDV IVPUSH PRN ×2 (13:41→21:55)
--- NOTE | 2017-07-26 14:49 | PCM.PN ---
- General Info Date of Service: 07/26/17 Functional Status: Reports: Tolerating Diet, Ambulating, Urinating - Review of Systems General: Reports: Weakness HEENT: Reports: No Symptoms Pulmonary: Reports: Shortness of Breath Cardiovascular: Reports: No Symptoms Gastrointestinal: Reports: No Symptoms Genitourinary: Reports: No Symptoms Musculoskeletal: Reports: No Symptoms Skin: Reports: No Symptoms Neurological: Reports: No Symptoms Psychiatric: Reports: No Symptoms - Patient Data Vitals - Most Recent: Last Vital Signs Temp 36.4 C 07/26/17 03:32 Pulse 83 07/26/17 09:18 Resp 16 07/26/17 09:18 BP 109/74 07/26/17 09:18 Pulse Ox 100 07/26/17 09:18 Weight - Most Recent: 56.88 kg I&O - Last 24 Hours: Intake & Output 07/25/17 07/26/17 07/26/17 22:59 06:59 14:59 Intake Total 1360 600 0 Output Total 1500 300 Balance -140 300 0 Lab Results Last 24 Hours: Laboratory Results - last 24 hr 07/26/17 Range/Units 10:45 Sodium 145 (136-145) mEq/L Potassium 3.4 L (3.5-5.1) mEq/L Chloride 106 (98-107) mEq/L Carbon Dioxide 28 (21-32) mEq/L Anion Gap 14.4 (5-15) BUN 11 (7-18) mg/dL Creatinine 0.8 (0.55-1.02) mg/dL Est Cr Clr Drug Dosing 58.75 mL/min Estimated GFR (MDRD) > 60 (>60) mL/min BUN/Creatinine Ratio 13.8 L (14-18) Glucose 101 (80-115) mg/dL Calcium 10.0 (8.5-10.1) mg/dL Magnesium 2.1 (1.8-2.4) mg/dl C-Reactive Protein 4.1 H* (<1.0) mg/dL Med Orders - Current: Current Medications Aspirin (Halfprin) 81 mg PO DAILY [facility] Last Admin: 07/26/17 09:08 Dose: 81 mg Ceftriaxone Sodium (Rocephin) 2 gm IVPUSH Q24H JOAQUIN Last Admin: 07/25/17 16:27 Dose: 2 gm Duloxetine HCl (Cymbalta) 90 mg PO DAILY [facility] Last Admin: 07/26/17 09:07 Dose: 90 mg Enoxaparin Sodium (Lovenox) 40 mg SUBCUT DAILY [facility] Last Admin: 07/26/17 09:07 Dose: 40 mg Gabapentin (Neurontin) 300 mg PO BEDTIME [facility] Last Admin: 07/25/17 20:14 Dose: 300 mg Hydroxyurea (Hydrea) 500 mg PO DAILY [facility] Last Admin: 07/25/17 16:26 Dose: Not Given Ketorolac Tromethamine (Toradol) 15 mg IVPUSH Q8H PRN PRN Reason: Pain Last Admin: 07/26/17 13:41 Dose: 15 mg Levothyroxine Sodium (Levothyroxine) 25 mcg PO ACBRK [facility] Last Admin: 07/26/17 05:34 Dose: 25 mcg Mirtazapine (Remeron) 15 mg PO BEDTIME [facility] Last Admin: 07/25/17 20:15 Dose: 15 mg Ondansetron HCl (Zofran Odt) 8 mg PO Q8H PRN PRN Reason: Nausea/Vomiting Last Admin: 07/24/17 09:24 Dose: 8 mg Prednisone (Prednisone) 40 mg PO DAILY [facility] Stop: 07/27/17 09:01 Last Admin: 07/26/17 09:08 Dose: 40 mg Prednisone (Prednisone) 30 mg PO DAILY [facility] Stop: 07/30/17 09:01 Prednisone (Prednisone) 20 mg PO DAILY [facility] Stop: 08/02/17 09:01 Prednisone (Prednisone) 10 mg PO DAILY [facility] Stop: 08/05/17 09:01 Sodium Chloride (Saline Flush) 10 ml FLUSH ASDIRECTED PRN PRN Reason: Keep Vein Open Last Admin: 07/21/17 14:25 Dose: 10 ml Tramadol HCl (Ultram) 50 mg PO Q8H PRN PRN Reason: Pain Last Admin: 07/26/17 09:08 Dose: 50 mg Discontinued Medications Diatrizoate Meglum/Diatrizoate Sod (Gastrografin 37%) 90 ml PO ONETIME ONE Stop: 07/21/17 17:17 Last Admin: 07/21/17 18:24 Dose: 90 ml Duloxetine HCl (Cymbalta) 60 mg PO DAILY [facility] Last Admin: 07/24/17 09:24 Dose: 60 mg Hydromorphone HCl (Dilaudid) 0.5 mg IVPUSH ONETIME ONE Stop: 07/21/17 15:38 Last Admin: 07/21/17 15:44 Dose: 0.5 mg Hydromorphone HCl (Dilaudid) 0.5 mg IVPUSH ONETIME ONE Stop: 07/21/17 17:52 Last Admin: 07/21/17 17:56 Dose: 0.5 mg Hydromorphone HCl (Dilaudid) 0.5 mg IVPUSH Q4H PRN PRN Reason: Pain Last Admin: 07/25/17 12:29 Dose: 0.5 mg Hydromorphone HCl (Dilaudid) 0.5 mg IVPUSH ONETIME ONE Stop: 07/22/17 09:33 Last Admin: 07/22/17 09:38 Dose: 0.5 mg Potassium Chloride 10 meq/ (Premix) 100 mls @ 50 mls/hr IV ASDIRECTED ONE Stop: 07/21/17 17:27 Last Admin: 07/21/17 15:37 Dose: 50 mls/hr Sodium Chloride (Normal Saline) 1,000 mls @ 150 mls/hr IV ASDIRECTED JOAQUIN Last Infusion: 07/21/17 19:59 Dose: 999 mls/hr Sodium Chloride (Normal Saline) 1,000 mls @ 999 mls/hr IV ONETIME JOAQUIN Potassium Chloride/Sodium Chloride (1/2 Ns With 20 Meq Kcl) 1,000 mls @ 150 mls /hr IV ASDIRECTED JOAQUIN Last Admin: 07/23/17 04:00 Dose: 150 mls/hr Magnesium Sulfate 2 gm/ Premix 50 mls @ 25 mls/hr IV Q1H STA Stop: 07/22/17 07:32 Last Admin: 07/22/17 05:38 Dose: 25 mls/hr Magnesium Sulfate (Magnesium Sulfate 2 Gm In Water 50 Ml) Confirm Administered Dose 50 mls @ as directed .ROUTE .STK-MED ONE Stop: 07/22/17 05:31 Last Admin: 07/22/17 07:18 Dose: Not Given Magnesium Sulfate 2 gm/ Premix 50 mls @ 25 mls/hr IV ONETIME ONE Stop: 07/22/17 09:29 Last Admin: 07/22/17 08:07 Dose: 25 mls/hr Magnesium Sulfate 2 gm/ Premix 50 mls @ 25 mls/hr IV ONETIME ONE Stop: 07/22/17 15:59 Last Admin: 07/22/17 13:35 Dose: 25 mls/hr Ceftriaxone Sodium 2 gm/ (Sodium Chloride) 100 mls @ 200 mls/hr IV Q24H [facility] Last Admin: 07/24/17 16:16 Dose: 200 mls/hr Ketorolac Tromethamine (Toradol) 30 mg IVPUSH ONETIME ONE Stop: 07/23/17 12:12 Last Admin: 07/23/17 12:28 Dose: 30 mg Methylprednisolone Sodium Succinate (Solu-Medrol) 40 mg IVPUSH Q12H [facility] Last Admin: 07/25/17 03:02 Dose: 40 mg Pantoprazole Sodium (Protonix Iv) 40 mg IVPUSH Q12H [facility] Last Admin: 07/23/17 09:30 Dose: Not Given Potassium Chloride (Potassium Chloride) 60 meq PO DAILY [facility] Stop: 07/24/17 09:01 Last Admin: 07/22/17 08:30 Dose: Not Given Potassium Chloride (Klor-Con M20) 60 meq PO DAILY [facility] Stop: 07/24/17 09:01 Potassium Chloride (Klor-Con M20) 60 meq PO BID [facility] Stop: 07/23/17 09:01 Last Admin: 07/23/17 09:27 Dose: Not Given Prednisone (Prednisone) 0 mg PO .Daily Taper [facility] PRN Reason: Taper Stop: 08/06/17 11:44 Tramadol HCl (Ultram) 50 mg PO TID PRN PRN Reason: Pain Last Admin: 07/23/17 06:27 Dose: 50 mg - Exam Quality Assessment: Supplemental Oxygen, DVT Prophylaxis General: Alert, Oriented, Cooperative, No Acute Distress HEENT: Pupils Equal, Pupils Reactive, EOMI Neck: Supple, Trachea Midline, No JVD Lungs: Normal Respiratory Effort, Decreased Breath Sounds Cardiovascular: Regular Rate, Regular Rhythm GI/Abdominal Exam: Normal Bowel Sounds, Soft, Non-Tender, No Organomegaly, No Distention (Female) Exam: Deferred Back Exam: Normal Inspection Extremities: Normal Inspection Skin: Warm Neurological: No New Focal Deficit, Normal Gait, Normal Speech Psy/Mental Status: Alert, Normal Affect, Normal Mood - Problem List & Annotations (1) Hypomagnesemia SNOMED Code(s): 064122266 Code(s): E83.42 - HYPOMAGNESEMIA Status: Acute Current Visit: Yes (2) History of thrombocytosis SNOMED Code(s): 603118040 Code(s): Z86.2 - PRSNL HISTORY [facility] Status: Acute Current Visit: Yes (3) COPD (chronic obstructive pulmonary disease) SNOMED Code(s): 05095993 Code(s): J44.9 - CHRONIC OBSTRUCTIVE PULMONARY DISEASE, UNSPECIFIED Status : Acute Current Visit: Yes (4) Anorexia SNOMED Code(s): 37558345 Code(s): R63.0 - ANOREXIA Status: Acute Current Visit: Yes (5) Hypokalemia SNOMED Code(s): 60411484 Code(s): E87.6 - HYPOKALEMIA Status: Acute Current Visit: Yes (6) Pancreatitis SNOMED Code(s): 58621942 Code(s): K85.90 - ACUTE PANCREATITIS WITHOUT NECROSIS OR INFECTION, UNSP Status: Acute Current Visit: Yes Qualifiers: Chronicity: acute Pancreatitis type: unspecified pancreatitis type Acute pancreatitis complication: unspecified Qualified Code(s): K85.90 - Acute pancreatitis without necrosis or infection, unspecified (7) Renal insufficiency SNOMED Code(s): 940619556 Code(s): N28.9 - DISORDER OF KIDNEY AND URETER, UNSPECIFIED Status: Acute Current Visit: Yes - Problem List Review Problem List Initiated/Reviewed/Updated: Yes - My Orders Last 24 Hours: My Active Orders 07/25/17 15:46 traMADol [Ultram] 50 mg PO Q8H PRN 07/25/17 16:00 Hydroxyurea [Hydrea] 500 mg PO DAILY cefTRIAXone [Rocephin] 2 gm IVPUSH Q24H 07/26/17 09:00 Aspirin [Halfprin] 81 mg PO DAILY 07/26/17 16:00 CBC WITH AUTO DIFF [HEME] Routine 07/28/17 09:00 predniSONE 30 mg PO DAILY 07/31/17 09:00 predniSONE 20 mg PO DAILY 08/03/17 09:00 predniSONE 10 mg PO DAILY - Plan Plan:: Impression: Anorexia (unspecified), acute on chronic Acute pancreatitis ~resolved Thrombocytosis, unspecified-->improving on steroids; 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 ARF~resolved Plan: Zofran for N/V IV ATB-->change 07/26/17/Steroids-->change to prednisone Tramadol/Toradol; dilaudid-->stopped MS telemetry Psych consult re: eating disorder; depression Infectious work up Check with pharmacy re: Hydroxyurea DVT/GI prophylaxis Code status: CPR only LOS>96 hours, gradual response to treatment. DC 24-48 hours
[2017-07-26] MEDS: cefTRIAXone 2 GM Vial IVPUSH SCH (16:40)
[2017-07-26] MEDS: Hydroxyurea 500 MG Cap PO SCH (19:54)
--- NOTE | 2017-07-26 20:46 | CONS ---
CONSULTING PHYSICIAN: Franc Fields MD DATE OF CONSULTATION: 07/25/2017 60-minute inpatient clinical event. IDENTIFICATION: The patient is a 62-year-old female who is admitted to the inpatient medical unit at [facility] in [place], [place] on 07/21/2017. She is seen for psychiatric evaluation. CHIEF COMPLAINT: "I just could not eat and I could not stand up." HISTORY OF PRESENT ILLNESS: The patient is a 62-year-old female who is admitted to the inpatient medical unit at [facility] secondary to issues with increased weakness and weight loss. The patient herself is stating that she has been struggling with some decreased memory and she states that her appetite is down secondary to physical side effects of getting nauseous. She states that she feels she is in the right place being in the hospital, noting "I can do better here" in terms of getting more physical strength, so she can become more functional again. She is also stating that she "needs something to help me sleep." She also wants help with "not being sad" and notes that she has been more depressed secondary to these health issues that have been going on. She normally takes Cymbalta 60 mg in the morning. She has been on this for many years now, but not so sure if it has been as effective as it has been previously in the patient's mind. The patient does still maintain good interest. Again, she is stating she can get something to help her with her mood that would be helpful for her. She denies that she is suicidal or homicidal. She denies any psychotic, delusional, or paranoid symptoms. MEDICATIONS: At time of presentation: 1. Cymbalta 60 mg q.a.m. 2. Tramadol. ALLERGIES: No known drug allergies. PAST MEDICAL HISTORY: 1. Pancreatitis. 2. Thrombocytosis. 3. COPD. 4. History of renal insufficiency. 5. Status post one-half stomach removal in 1984 secondary to ulcers. 6. History of ulcerative colitis. REVIEW OF SYSTEMS: Aside from nephrologic, GI, blood, pulmonary, all other major organ systems appear negative at this point in time for acute difficulties or complications. FAMILY PSYCHIATRIC AND CD HISTORY: The patient denies. PAST PSYCHIATRIC AND CD HISTORY: The patient denies any previous psychiatric hospitalizations or chemical dependency treatments. She is a nonsmoker. Denies any previous suicide attempts, self-injurious behaviors, or eating disorder history. PAST PSYCHIATRIC DIAGNOSIS: Clinical depression. PAST PSYCHIATRIC MEDICATION HISTORY: Ambien and Remeron. PRIMARY OUTPATIENT PROVIDER: Kassy Escalona NP. SOCIAL HISTORY: The patient was born and raised in [facility]. She was x1 for 17 years, but her back in 1998 secondary to cancer. She has 2 boys from the marriage. 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 She enjoys reading and spending time with her cats. MENTAL STATUS EXAM: The patient is a 62-year-old soft-spoken white female in no apparent distress. Speech is of regular rate and rhythm. The patient is cognitively oriented x3. Psychomotor activity is within normal limits. There is no abnormal motor movements or tics observed. Gait and station are not observed. This patient is bedbound for the entirety of the consult. Mood is "sad." Affect is cooperative overall for the purposes of the inpatient psychiatric consult. There is no behavioral or stated evidence of acute suicidal or homicidal ideation or acute psychotic, delusional, or paranoid symptoms. Thought process organized. There are no manic symptoms, loose associations evident. Judgment and insight appear unimpaired. At this point in time, motivation for help appears good. VITALS: 147/88, 85, 18, 97.9 degrees. IMPRESSION: [place] I: Major depressive disorder, recurrent F33.2. [place] II: None. [place] III: 1. Pancreatitis. 2. Thrombocytosis. 3. Chronic obstructive pulmonary disease. 4. History of renal insufficiency. 5. Status post half stomach removal in 1984 secondary to ulcers. 6. History of ulcerative colitis. [place] IV: Severe. [place] V: 55 to 60. PLAN: 1. Begin trial of Remeron 15 mg at bedtime to help with mood, sleep initiation and maintenance and appetite. 2. Increase patient's Cymbalta from 60 to 90 mg q.a.m. to help with mood. 3. Other medications as dosed and prescribed by the patient's primary inpatient medical treatment team. 4. The patient advised of the benefits and side effects of her newly initiated and adjusted psychiatric medication regimen. She acknowledges her understanding of these facts and had no questions by the end of the interview session. 5. We will continue to follow up with the patient while she remains on the inpatient medical unit on an as needed basis. 6. We will follow up with the patient sooner if any complications in the interim. 7. Recommend the patient follow up with outpatient provider, Outpatient Psychiatry, when she is medically stabilized and discharged back to community to assess the overall effectiveness of her newly initiated and adjusted psychiatric medication regimen. 8. Crisis plan is in place. KRISH /[id number]
[2017-07-26] MEDS: Mirtazapine 15 MG Tab PO SCH (20:53)
[2017-07-26] MEDS: Gabapentin 300 MG Cap PO SCH (20:53)
[2017-07-27] MEDS: Levothyroxine 25 MCG Tab PO SCH (05:14)
[2017-07-27] MEDS: Aspirin 81 MG Tab.EC PO SCH (08:44)
[2017-07-27] MEDS: Enoxaparin 40 MG/0.4 ML Syringe SUBCUT SCH (08:44)
[2017-07-27] MEDS: DULoxetine 30 MG Cap PO SCH (08:45)
[2017-07-27] MEDS: Ketorolac 15 MG/ML SDV IVPUSH PRN (08:45)
[2017-07-27] MEDS: predniSONE 20 MG Tab PO SCH (08:46)
[2017-07-27] MEDS: Hydroxyurea 500 MG Cap PO SCH (10:43)
--- NOTE | 2017-07-27 11:34 | PCM.PN ---
- General Info Date of Service: 07/27/17 Functional Status: Reports: Pain Controlled, Tolerating Diet, Ambulating, Urinating - Review of Systems General: Reports: Weakness HEENT: Reports: No Symptoms Pulmonary: Reports: No Symptoms Cardiovascular: Reports: No Symptoms Gastrointestinal: Reports: No Symptoms Genitourinary: Reports: No Symptoms Musculoskeletal: Reports: No Symptoms Skin: Reports: No Symptoms Neurological: Reports: No Symptoms Psychiatric: Reports: No Symptoms - Patient Data Vitals - Most Recent: Last Vital Signs Temp 36.8 C 07/27/17 08:41 Pulse 83 07/27/17 08:41 Resp 16 07/27/17 08:41 BP 134/90 07/27/17 08:41 Pulse Ox 100 07/27/17 08:41 Weight - Most Recent: 56.155 kg I&O - Last 24 Hours: Intake & Output 07/26/17 07/27/17 07/27/17 22:59 06:59 14:59 Intake Total 1040 400 Output Total 1500 1300 Balance -460 -900 Lab Results Last 24 Hours: Laboratory Results - last 24 hr 07/26/17 07/26/17 Range/Units 10:45 15:55 WBC 20.06 H (3.98-10.04) K/mm3 RBC 3.28 L (3.98-5.22) M/mm3 Hgb 9.5 L (11.2-15.7) gm/L Hct 30.6 L (34.1-44.9) % MCV 93.3 (79.4-94.8) fl MCH 29.0 (25.6-32.2) pg MCHC 31.0 L (32.2-35.5) g/dl RDW Std Deviation 49.5 H (36.4-46.3) fL Plt Count 914 H* (182-369) K/mm3 MPV 9.2 L (9.4-12.3) fl Neut % (Auto) 90.8 H (34.0-71.1) % Lymph % (Auto) 3.7 L (19.3-51.7) % [place] % (Auto) 4.1 L (4.7-12.5) % Eos % (Auto) 0 L (0.7-5.8) Baso % (Auto) 0.0 L (0.1-1.2) % Neut # (Auto) 18.18 H (1.56-6.13) K/mm3 Lymph # (Auto) 0.75 L (1.18-3.74) K/mm3 [place] # (Auto) 0.83 H (0.24-0.36) K/mm3 Eos # (Auto) 0.00 L (0.04-0.36) K/mm3 Baso # (Auto) 0.01 (0.01-0.08) K/mm3 Manual Slide Review Abnormal smear Sodium 145 (136-145) mEq/L Potassium 3.4 L (3.5-5.1) mEq/L Chloride 106 (98-107) mEq/L Carbon Dioxide 28 (21-32) mEq/L Anion Gap 14.4 (5-15) BUN 11 (7-18) mg/dL Creatinine 0.8 (0.55-1.02) mg/dL Est Cr Clr Drug Dosing 58.75 mL/min Estimated GFR (MDRD) > 60 (>60) mL/min BUN/Creatinine Ratio 13.8 L (14-18) Glucose 101 (80-115) mg/dL Calcium 10.0 (8.5-10.1) mg/dL Magnesium 2.1 (1.8-2.4) mg/dl C-Reactive Protein 4.1 H* (<1.0) mg/dL Med Orders - Current: Current Medications Aspirin (Halfprin) 81 mg PO DAILY REPLACED BY [facility] Last Admin: 07/27/17 08:44 Dose: 81 mg Duloxetine HCl (Cymbalta) 90 mg PO DAILY REPLACED BY [facility] Last Admin: 07/27/17 08:45 Dose: 90 mg Enoxaparin Sodium (Lovenox) 40 mg SUBCUT DAILY REPLACED BY [facility] Last Admin: 07/27/17 08:44 Dose: 40 mg Gabapentin (Neurontin) 300 mg PO BEDTIME REPLACED BY [facility] Last Admin: 07/26/17 20:53 Dose: 300 mg Hydroxyurea (Hydrea) 500 mg PO DAILY REPLACED BY [facility] Last Admin: 07/27/17 10:43 Dose: 500 mg Levothyroxine Sodium (Levothyroxine) 25 mcg PO ACBRK REPLACED BY [facility] Last Admin: 07/27/17 05:14 Dose: 25 mcg Mirtazapine (Remeron) 15 mg PO BEDTIME REPLACED BY [facility] Last Admin: 07/26/17 20:53 Dose: 15 mg Ondansetron HCl (Zofran Odt) 8 mg PO Q8H PRN PRN Reason: Nausea/Vomiting Last Admin: 07/24/17 09:24 Dose: 8 mg Potassium Chloride (Potassium Chloride) 40 meq PO DAILY REPLACED BY [facility] Prednisone (Prednisone) 30 mg PO DAILY REPLACED BY [facility] Stop: 07/30/17 09:01 Prednisone (Prednisone) 20 mg PO DAILY REPLACED BY [facility] Stop: 08/02/17 09:01 Prednisone (Prednisone) 10 mg PO DAILY REPLACED BY [facility] Stop: 08/05/17 09:01 Sodium Chloride (Saline Flush) 10 ml FLUSH ASDIRECTED PRN PRN Reason: Keep Vein Open Last Admin: 07/21/17 14:25 Dose: 10 ml Tramadol HCl (Ultram) 50 mg PO Q8H PRN PRN Reason: Pain Last Admin: 07/26/17 20:53 Dose: 50 mg Discontinued Medications Ceftriaxone Sodium (Rocephin) 2 gm IVPUSH Q24H REPLACED BY [facility] Last Admin: 07/26/17 16:40 Dose: 2 gm Diatrizoate Meglum/Diatrizoate Sod (Gastrografin 37%) 90 ml PO ONETIME ONE Stop: 07/21/17 17:17 Last Admin: 07/21/17 18:24 Dose: 90 ml Duloxetine HCl (Cymbalta) 60 mg PO DAILY REPLACED BY [facility] Last Admin: 07/24/17 09:24 Dose: 60 mg Hydromorphone HCl (Dilaudid) 0.5 mg IVPUSH ONETIME ONE Stop: 07/21/17 15:38 Last Admin: 07/21/17 15:44 Dose: 0.5 mg Hydromorphone HCl (Dilaudid) 0.5 mg IVPUSH ONETIME ONE Stop: 07/21/17 17:52 Last Admin: 07/21/17 17:56 Dose: 0.5 mg Hydromorphone HCl (Dilaudid) 0.5 mg IVPUSH Q4H PRN PRN Reason: Pain Last Admin: 07/25/17 12:29 Dose: 0.5 mg Hydromorphone HCl (Dilaudid) 0.5 mg IVPUSH ONETIME ONE Stop: 07/22/17 09:33 Last Admin: 07/22/17 09:38 Dose: 0.5 mg Hydroxyurea (Hydrea) 500 mg PO DAILY REPLACED BY [facility] Last Admin: 07/26/17 19:54 Dose: Not Given Potassium Chloride 10 meq/ (Premix) 100 mls @ 50 mls/hr IV ASDIRECTED ONE Stop: 07/21/17 17:27 Last Admin: 07/21/17 15:37 Dose: 50 mls/hr Sodium Chloride (Normal Saline) 1,000 mls @ 150 mls/hr IV ASDIRECTED JOAQUIN Last Infusion: 07/21/17 19:59 Dose: 999 mls/hr Sodium Chloride (Normal Saline) 1,000 mls @ 999 mls/hr IV ONETIME JOAQUIN Potassium Chloride/Sodium Chloride (1/2 Ns With 20 Meq Kcl) 1,000 mls @ 150 mls /hr IV ASDIRECTED JOAQUIN Last Admin: 07/23/17 04:00 Dose: 150 mls/hr Magnesium Sulfate 2 gm/ Premix 50 mls @ 25 mls/hr IV Q1H STA Stop: 07/22/17 07:32 Last Admin: 07/22/17 05:38 Dose: 25 mls/hr Magnesium Sulfate (Magnesium Sulfate 2 Gm In Water 50 Ml) Confirm Administered Dose 50 mls @ as directed .ROUTE .STK-MED ONE Stop: 07/22/17 05:31 Last Admin: 07/22/17 07:18 Dose: Not Given Magnesium Sulfate 2 gm/ Premix 50 mls @ 25 mls/hr IV ONETIME ONE Stop: 07/22/17 09:29 Last Admin: 07/22/17 08:07 Dose: 25 mls/hr Magnesium Sulfate 2 gm/ Premix 50 mls @ 25 mls/hr IV ONETIME ONE Stop: 07/22/17 15:59 Last Admin: 07/22/17 13:35 Dose: 25 mls/hr Ceftriaxone Sodium 2 gm/ (Sodium Chloride) 100 mls @ 200 mls/hr IV Q24H REPLACED BY [facility] Last Admin: 07/24/17 16:16 Dose: 200 mls/hr Ketorolac Tromethamine (Toradol) 15 mg IVPUSH Q8H PRN PRN Reason: Pain Last Admin: 07/27/17 08:45 Dose: 15 mg Ketorolac Tromethamine (Toradol) 30 mg IVPUSH ONETIME ONE Stop: 07/23/17 12:12 Last Admin: 07/23/17 12:28 Dose: 30 mg Methylprednisolone Sodium Succinate (Solu-Medrol) 40 mg IVPUSH Q12H REPLACED BY [facility] Last Admin: 07/25/17 03:02 Dose: 40 mg Pantoprazole Sodium (Protonix Iv) 40 mg IVPUSH Q12H REPLACED BY [facility] Last Admin: 07/23/17 09:30 Dose: Not Given Potassium Chloride (Potassium Chloride) 60 meq PO DAILY REPLACED BY [facility] Stop: 07/24/17 09:01 Last Admin: 07/22/17 08:30 Dose: Not Given Potassium Chloride (Klor-Con M20) 60 meq PO DAILY REPLACED BY [facility] Stop: 07/24/17 09:01 Potassium Chloride (Klor-Con M20) 60 meq PO BID JOAQUIN Stop: 07/23/17 09:01 Last Admin: 07/23/17 09:27 Dose: Not Given Prednisone (Prednisone) 0 mg PO .Daily Taper REPLACED BY [facility] PRN Reason: Taper Stop: 08/06/17 11:44 Prednisone (Prednisone) 40 mg PO DAILY REPLACED BY [facility] Stop: 07/27/17 09:01 Last Admin: 07/27/17 08:46 Dose: 40 mg Tramadol HCl (Ultram) 50 mg PO TID PRN PRN Reason: Pain Last Admin: 07/23/17 06:27 Dose: 50 mg - Exam Quality Assessment: DVT Prophylaxis General: Alert, Oriented, Cooperative, No Acute Distress HEENT: Pupils Equal, Pupils Reactive, EOMI Neck: Supple, Trachea Midline, No JVD Lungs: Normal Respiratory Effort Cardiovascular: Regular Rate, Regular Rhythm GI/Abdominal Exam: Normal Bowel Sounds, Soft, Non-Tender, No Organomegaly, No Distention (Female) Exam: Deferred Back Exam: Normal Inspection Skin: Warm Neurological: No New Focal Deficit Psy/Mental Status: Alert, Normal Affect, Normal Mood - Problem List & Annotations (1) Hypomagnesemia SNOMED Code(s): 383520875 Code(s): E83.42 - HYPOMAGNESEMIA Status: Resolved Priority: High (2) History of thrombocytosis SNOMED Code(s): 219079382 Code(s): Z86.2 - PRSNL HISTORY OF DIS OF THE BLD/BLD-FORM ORG/IMMUN MECHNSM Status: Acute (3) COPD (chronic obstructive pulmonary disease) SNOMED Code(s): 83558996 Code(s): J44.9 - CHRONIC OBSTRUCTIVE PULMONARY DISEASE, UNSPECIFIED Status : Chronic Priority: Medium Qualifiers: COPD type: unspecified COPD Qualified Code(s): J44.9 - Chronic obstructive pulmonary disease, unspecified (4) Anorexia SNOMED Code(s): 92880494 Code(s): R63.0 - ANOREXIA Status: Acute Priority: High (5) Hypokalemia SNOMED Code(s): 55927485 Code(s): E87.6 - HYPOKALEMIA Status: Resolved Priority: High (6) Pancreatitis SNOMED Code(s): 55883807 Code(s): K85.90 - ACUTE PANCREATITIS WITHOUT NECROSIS OR INFECTION, UNSP Status: Acute Priority: High Qualifiers: Chronicity: acute Pancreatitis type: unspecified pancreatitis type Acute pancreatitis complication: unspecified Qualified Code(s): K85.90 - Acute pancreatitis without necrosis or infection, unspecified (7) Renal insufficiency SNOMED Code(s): 400996015 Code(s): N28.9 - DISORDER OF KIDNEY AND URETER, UNSPECIFIED Status: Chronic Priority: Medium - Problem List Review Problem List Initiated/Reviewed/Updated: Yes - My Orders Last 24 Hours: My Active Orders 07/27/17 10:45 Hydroxyurea [Hydrea] 500 mg PO DAILY 07/27/17 11:45 Potassium Chloride 40 meq PO DAILY 07/27/17 16:00 BMP [BASIC METABOLIC PANEL,BMP] [CHEM] Routine CBC WITH AUTO DIFF [HEME] Routine CRP [C-REACTIVE PROTEIN] [CHEM] Routine 07/28/17 05:00 BMP [BASIC METABOLIC PANEL,BMP] [CHEM] DAILY CBC WITH AUTO DIFF [HEME] DAILY CRP [C-REACTIVE PROTEIN] [CHEM] DAILY 07/28/17 09:00 predniSONE 30 mg PO DAILY 07/29/17 05:00 BMP [BASIC METABOLIC PANEL,BMP] [CHEM] DAILY CBC WITH AUTO DIFF [HEME] DAILY CRP [C-REACTIVE PROTEIN] [CHEM] DAILY 07/31/17 09:00 predniSONE 20 mg PO DAILY 08/03/17 09:00 predniSONE 10 mg PO DAILY - Plan Plan:: Impression: Anorexia (unspecified), acute on chronic Acute pancreatitis ~resolved Thrombocytosis, unspecified-->improving on steroids; 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 ARF~resolved Plan: Zofran for N/V IV ATB-->change 07/26/17/Steroids-->change to prednisone Tramadol/Toradol; dilaudid-->stopped MS telemetry Psych consult re: eating disorder; depression Infectious work up Check with pharmacy re: Hydroxyurea DVT/GI prophylaxis Code status: CPR only LOS>96 hours, gradual response to treatment. DC 24-48 hours
[2017-07-27] MEDS: Potassium Chloride 10% 20 MEQ/15 ML Soln 30 ML UD Cup PO SCH (12:28)
[2017-07-27] MEDS: traMADol 50 MG Tab PO PRN (13:12)
[2017-07-27] MEDS: Ondansetron 4 MG Tab.DIS PO PRN (13:12)
[2017-07-27] MEDS: Mirtazapine 15 MG Tab PO SCH (20:10)
[2017-07-27] MEDS: Gabapentin 300 MG Cap PO SCH (20:11)
[2017-07-28] MEDS: traMADol 50 MG Tab PO PRN (02:59)
[2017-07-28] MEDS: Levothyroxine 25 MCG Tab PO SCH (06:34)
--- NOTE | 2017-07-28 07:55 | PCM.DCSUM1 ---
Discharge Summary - Hospital Course Free Text/Narrative:: 62-year-old female comes in feeling more short of breath than usual. Has noticed this worsening over the past 1-2 weeks. The dyspnea is worse with exertion. She is not coughing any more than usual. She denies known history of asthma or COPD but believe she does continue to smoke with a fairly long smoking history. No recent fever or chills. She has been having upper abdominal discomfort, diminished appetite, states she's lost about 10-12 pounds over the past month. She states that she can feel some swollen lymph nodes left neck and left jaw. Was painful last week but now she is just more aware of the swelling. She states her mouth feels very dry. She is cut back on her diuretic from 2 pills a day to one per day. She has had prior cholecystectomy. Labs in ED show WBC elevated at 23K, platelet extremely elevated at around 1100 , potassium was low at 2.1, magnesium normal. Creatinine elevated at 1.9, lipase 2927 and CRP 63.4. Abdominal US and CT of abdomen/pelvis both requested prior to admission to Hospitalist service. US with findings of prior cholecystectomy with mild dilation of CBD, stable from prior finding. CT of abdomen was with 2 hyperdense lesions to the left kidney, most likely hemorrhagic cyst by Radiologist report and normal pancreas. Hospitalist service is consulted for admission for hypokalemia, thrombocytosis, decreased appetite and weakness. Course of hospital stay was with fluctuating high platelet levels, down to 800' s on day of discharge with hydroxyurea and prednisone. She will be discharged on both of these medications and with Hematology consult as outpatient. WBC decreased to 18.73, CRP down to 6.6. Potassium was supplemented and normalized. Lipase trended down. TSH was WNL. She had persistent left sided neck/jaw swelling and pain. CT of head and soft tissue neck obtained; head was WNL, neck was with enlarged parotid glands with normal sized lymph nodes, no other abnormalities. Other infectious etiology ruled out with negative strep pneumo antigen, negative mycoplasma and negative resp viral panel. Diet was slowly advanced and tolerated, [employer] consult for weight loss with addition of supplement drinks. Appetite did slowly improve. She had consult with Dr. Fields, Psychiatrist for depression and insomnia; cymbalta dose was increased and remron added for sleep. She can f/up with Psych on outpatient basis in one month. She worked with PT/OT for strengthening; recommend cont with PT on outpatient basis. She will be placed off of work until further eval with PCP, Kassy DESIR within one week of discharge. Labs to be done on day of f/up including CBC, BMP and Magnesium. - Discharge Data Discharge Date: 07/28/17 (admit date07/21/17) Discharge Disposition: Home, Self-Care 01 Condition: Fair - Discharge Diagnosis/Problem(s) (1) Thrombocytosis SNOMED Code(s): 8892880 ICD Code: D47.3 - ESSENTIAL (HEMORRHAGIC) THROMBOCYTHEMIA Status: Acute Priority: High Current Visit: Yes (2) Leukocytosis SNOMED Code(s): 426034803 ICD Code: D72.829 - ELEVATED WHITE BLOOD CELL COUNT, UNSPECIFIED Status: Acute Priority: High Current Visit: Yes Qualifiers: Leukocytosis type: unspecified Qualified Code(s): D72.829 - Elevated white blood cell count, unspecified (3) Anemia SNOMED Code(s): 325957083 ICD Code: D64.9 - ANEMIA, UNSPECIFIED Status: Acute Priority: High Current Visit: Yes Qualifiers: Anemia type: unspecified type Qualified Code(s): D64.9 - Anemia, unspecified (4) Pancreatitis SNOMED Code(s): 09467864 ICD Code: K85.90 - ACUTE PANCREATITIS WITHOUT NECROSIS OR INFECTION, UNSP Status: Acute Priority: High Current Visit: Yes Qualifiers: Chronicity: acute Pancreatitis type: unspecified pancreatitis type Acute pancreatitis complication: unspecified Qualified Code(s): K85.90 - Acute pancreatitis without necrosis or infection, unspecified (5) Hypokalemia SNOMED Code(s): 86862614 ICD Code: E87.6 - HYPOKALEMIA Status: Resolved Priority: High Current Visit: Yes (6) Renal insufficiency SNOMED Code(s): 978320635 ICD Code: N28.9 - DISORDER OF KIDNEY AND URETER, UNSPECIFIED Status: Chronic Priority: Medium Current Visit: Yes (7) Hypomagnesemia SNOMED Code(s): 400650660 ICD Code: E83.42 - HYPOMAGNESEMIA Status: Resolved Priority: High Current Visit: Yes (8) COPD (chronic obstructive pulmonary disease) SNOMED Code(s): 00697800 ICD Code: J44.9 - CHRONIC OBSTRUCTIVE PULMONARY DISEASE, UNSPECIFIED Status : Chronic Priority: Medium Current Visit: Yes Qualifiers: COPD type: unspecified COPD Qualified Code(s): J44.9 - Chronic obstructive pulmonary disease, unspecified (9) Anorexia SNOMED Code(s): 83024589 ICD Code: R63.0 - ANOREXIA Status: Acute Priority: High Current Visit: Yes - Patient Summary/Data Operative Procedure(s) Performed: None Complications: None Consults: Consultations 07/22/17 09:00 Consult to Occupational Therapy [OT Evaluation and Treatment] [CONS] Routine Consult to Physical Therapy [PT Evaluation and Treatment] [CONS] Routine Consult to Survey Director [CONS] Routine 07/23/17 15:43 Consult to Physician [CONS] Routine - Dr. Fields, Psychiatry [employer] for weight loss and decreased appetite. Labs Pending at D/C: None Recommended Follow-up Testing/Procedures: Patient DC instructions: [facility] will contact you to set up an appointment time/Referral. Follow up with PCP, Kassy BUCKLEYP within one week of discharge, labs at that time; CBC, BMP and magnesium (rx written). Follow up with Outpatient Psychiatry, Dr. Feilds in one month for recheck. Recommend smoking cessation; quit line offers assistance and free products to help; 7-699-ZDWNGMI. Planned Operative Procedure(s) after DC: None Hospital Course: As above - Patient Instructions Diet: Heart Healthy Diet, Drink 8-10+ Glasses/Day Activity: As Tolerated Showering/Bathing: May Shower Notify Provider of: Fever, Increased Pain, Nausea and/or Vomiting - Discharge Plan Prescriptions/Med Rec: Aspirin [Halfprin] 81 mg PO DAILY #30 tab.ec DULoxetine [Cymbalta] 90 mg PO DAILY #30 cap Hydroxyurea [Hydrea] 500 mg PO DAILY #30 cap Mirtazapine [Remeron] 15 mg PO BEDTIME #30 tablet Ondansetron [Zofran ODT] 8 mg PO Q8H PRN #30 tab.dis PRN Reason: Nausea/Vomiting Prednisone [IJD: predniSONE] 20 mg PO DAILY #6 tablet predniSONE 30 mg PO DAILY #9 tablet predniSONE 10 mg PO DAILY #3 tablet Home Medications: Home Meds Cyclobenzaprine [Flexeril] 10 mg PO BID PRN 07/21/17 [History] Furosemide 60 - 80 mg PO DAILY 07/21/17 [History] Gabapentin [Neurontin] 300 mg PO BEDTIME 07/21/17 [History] Levothyroxine 25 mcg PO DAILY 07/21/17 [History] Potassium Chloride [Klor-Con M20] 20 meq PO BID 07/21/17 [History] traMADol [Ultram] 1 - 2 tab PO Q6H PRN 07/21/17 [History] Aspirin [Halfprin] 81 mg PO DAILY #30 tab.ec 07/28/17 [Rx] DULoxetine [Cymbalta] 90 mg PO DAILY #30 cap 07/28/17 [Rx] Hydroxyurea [Hydrea] 500 mg PO DAILY #30 cap 07/28/17 [Rx] Mirtazapine [Remeron] 15 mg PO BEDTIME #30 tablet 07/28/17 [Rx] Ondansetron [Zofran ODT] 8 mg PO Q8H PRN #30 tab.dis 07/28/17 [Rx] Prednisone [IJD: predniSONE] 20 mg PO DAILY #6 tablet 07/28/17 [Rx] predniSONE 10 mg PO DAILY #3 tablet 07/28/17 [Rx] predniSONE 30 mg PO DAILY #9 tablet 07/28/17 [Rx] Patient Handouts: Smoking Cessation, Tips for Success, [id number], Parotitis , [id number], Smoking Hazards, Acute Pancreatitis, [id number], Duloxetine delayed-release capsules, Hypokalemia, Hydroxyurea capsules, Mirtazapine tablets , Aspirin, ASA oral tablets, Tobacco Use Disorder Forms: ED Department Discharge Referrals: Kassy Escalona NP [ED Midlevel Provider] - 07/31/17 11:30 am Franc Fields MD [Physician] - (Call [phone] to schedule follow-up appointment with psychiatrist. Location of appointment will be at [facility], [address] [place] [address].) Efrain Weems MD [Primary Care Provider] - - Discharge Summary/Plan Comment DC Time >30 min.: Yes (40 min) - General Info Date of Service: 07/28/17 Admission Dx/Problem (Free Text: Weakness, decreased appetite, facial/jaw swelling, thrombocytosis Functional Status: Reports: Pain Controlled, Tolerating Diet, Ambulating, Urinating - Review of Systems General: Reports: No Symptoms, Weakness (improved), Appetite (improved) HEENT: Reports: No Symptoms Pulmonary: Reports: No Symptoms. Denies: Shortness of Breath, Cough Cardiovascular: Reports: No Symptoms. Denies: Chest Pain, Palpitations, Dyspnea on Exertion Gastrointestinal: Reports: No Symptoms, Diarrhea. Denies: Abdominal Pain Genitourinary: Reports: No Symptoms Musculoskeletal: Reports: No Symptoms Skin: Reports: No Symptoms Neurological: Reports: No Symptoms Psychiatric: Reports: No Symptoms - Patient Data Vitals - Most Recent: Last Vital Signs Temp 99.0 F 07/28/17 02:39 Pulse 78 07/27/17 19:41 Resp 18 07/28/17 02:39 BP 132/84 07/28/17 02:39 Pulse Ox 99 07/27/17 22:00 Weight - Most Recent: 269 lb 10.005 oz I&O - Last 24 hours: Intake & Output 07/27/17 07/28/17 07/28/17 22:59 06:59 14:59 Intake Total 1837 800 Balance 1837 800 Lab Results - Last 24 hrs: Laboratory Results - last 24 hr 07/27/17 07/27/17 07/28/17 Range/Units 16:15 16:15 06:15 WBC 18.73 H 16.15 H (3.98-10.04) K/mm3 RBC 3.51 L 3.57 L (3.98-5.22) M/mm3 Hgb 10.2 L 10.1 L (11.2-15.7) gm/L Hct 32.9 L 34.1 (34.1-44.9) % MCV 93.7 95.5 H (79.4-94.8) fl MCH 29.1 28.3 (25.6-32.2) pg MCHC 31.0 L 29.6 L (32.2-35.5) g/dl RDW Std Deviation 49.2 H 51.4 H (36.4-46.3) fL Plt Count 1027 H* 993 H* (182-369) K/mm3 MPV 9.4 9.8 (9.4-12.3) fl Neut % (Auto) 89.0 H 69.9 (34.0-71.1) % Lymph % (Auto) 5.1 L 15.9 L (19.3-51.7) % [place] % (Auto) 3.5 L 10.5 (4.7-12.5) % Eos % (Auto) 0 L 1.4 (0.7-5.8) Baso % (Auto) 0.1 0.1 (0.1-1.2) % Neut # (Auto) 16.67 H 11.31 H (1.56-6.13) K/mm3 Lymph # (Auto) 0.95 L 2.56 (1.18-3.74) K/mm3 [place] # (Auto) 0.66 H 1.69 H (0.24-0.36) K/mm3 Eos # (Auto) 0.00 L 0.22 (0.04-0.36) K/mm3 Baso # (Auto) 0.01 0.01 (0.01-0.08) K/mm3 Manual Slide Review Abnormal smear Sodium 144 (136-145) mEq/L Potassium 4.0 (3.5-5.1) mEq/L Chloride 106 (98-107) mEq/L Carbon Dioxide 28 (21-32) mEq/L Anion Gap 14.0 (5-15) BUN 10 (7-18) mg/dL Creatinine 0.8 (0.55-1.02) mg/dL Est Cr Clr Drug Dosing 58.75 mL/min Estimated GFR (MDRD) > 60 (>60) mL/min BUN/Creatinine Ratio 12.5 L (14-18) Glucose 146 H (80-115) mg/dL Calcium 9.5 (8.5-10.1) mg/dL C-Reactive Protein 6.6 H* (<1.0) mg/dL 07/28/17 Range/Units 06:15 WBC (3.98-10.04) K/mm3 RBC (3.98-5.22) M/mm3 Hgb (11.2-15.7) gm/L Hct (34.1-44.9) % MCV (79.4-94.8) fl MCH (25.6-32.2) pg MCHC (32.2-35.5) g/dl RDW Std Deviation (36.4-46.3) fL Plt Count (182-369) K/mm3 MPV (9.4-12.3) fl Neut % (Auto) (34.0-71.1) % Lymph % (Auto) (19.3-51.7) % [place] % (Auto) (4.7-12.5) % Eos % (Auto) (0.7-5.8) Baso % (Auto) (0.1-1.2) % Neut # (Auto) (1.56-6.13) K/mm3 Lymph # (Auto) (1.18-3.74) K/mm3 [place] # (Auto) (0.24-0.36) K/mm3 Eos # (Auto) (0.04-0.36) K/mm3 Baso # (Auto) (0.01-0.08) K/mm3 Manual Slide Review Sodium 146 H (136-145) mEq/L Potassium 3.2 L (3.5-5.1) mEq/L Chloride 106 (98-107) mEq/L Carbon Dioxide 30 (21-32) mEq/L Anion Gap 13.2 (5-15) BUN 8 (7-18) mg/dL Creatinine 0.7 (0.55-1.02) mg/dL Est Cr Clr Drug Dosing 67.14 mL/min Estimated GFR (MDRD) > 60 (>60) mL/min BUN/Creatinine Ratio 11.4 L (14-18) Glucose 97 (80-115) mg/dL Calcium 10.1 (8.5-10.1) mg/dL C-Reactive Protein 6.9 H* (<1.0) mg/dL Med Orders - Current: Current Medications Aspirin (Halfprin) 81 mg PO DAILY [facility] Last Admin: 07/27/17 08:44 Dose: 81 mg Duloxetine HCl (Cymbalta) 90 mg PO DAILY [facility] Last Admin: 07/27/17 08:45 Dose: 90 mg Enoxaparin Sodium (Lovenox) 40 mg SUBCUT DAILY [facility] Last Admin: 07/27/17 08:44 Dose: 40 mg Gabapentin (Neurontin) 300 mg PO BEDTIME [facility] Last Admin: 07/27/17 20:11 Dose: 300 mg Hydroxyurea (Hydrea) 500 mg PO DAILY [facility] Last Admin: 07/27/17 10:43 Dose: 500 mg Levothyroxine Sodium (Levothyroxine) 25 mcg PO ACBRK [facility] Last Admin: 07/28/17 06:34 Dose: 25 mcg Mirtazapine (Remeron) 15 mg PO BEDTIME [facility] Last Admin: 07/27/17 20:10 Dose: 15 mg Ondansetron HCl (Zofran Odt) 8 mg PO Q8H PRN PRN Reason: Nausea/Vomiting Last Admin: 07/27/17 13:12 Dose: 8 mg Potassium Chloride (Potassium Chloride) 40 meq PO DAILY [facility] Last Admin: 07/27/17 12:28 Dose: 40 meq Prednisone (Prednisone) 30 mg PO DAILY [facility] Stop: 07/30/17 09:01 Prednisone (Prednisone) 20 mg PO DAILY [facility] Stop: 08/02/17 09:01 Prednisone (Prednisone) 10 mg PO DAILY [facility] Stop: 08/05/17 09:01 Sodium Chloride (Saline Flush) 10 ml FLUSH ASDIRECTED PRN PRN Reason: Keep Vein Open Last Admin: 07/21/17 14:25 Dose: 10 ml Tramadol HCl (Ultram) 50 mg PO Q8H PRN PRN Reason: Pain Last Admin: 07/28/17 02:59 Dose: 50 mg Discontinued Medications Ceftriaxone Sodium (Rocephin) 2 gm IVPUSH Q24H [facility] Last Admin: 07/26/17 16:40 Dose: 2 gm Diatrizoate Meglum/Diatrizoate Sod (Gastrografin 37%) 90 ml PO ONETIME ONE Stop: 07/21/17 17:17 Last Admin: 07/21/17 18:24 Dose: 90 ml Duloxetine HCl (Cymbalta) 60 mg PO DAILY [facility] Last Admin: 07/24/17 09:24 Dose: 60 mg Hydromorphone HCl (Dilaudid) 0.5 mg IVPUSH ONETIME ONE Stop: 07/21/17 15:38 Last Admin: 07/21/17 15:44 Dose: 0.5 mg Hydromorphone HCl (Dilaudid) 0.5 mg IVPUSH ONETIME ONE Stop: 07/21/17 17:52 Last Admin: 07/21/17 17:56 Dose: 0.5 mg Hydromorphone HCl (Dilaudid) 0.5 mg IVPUSH Q4H PRN PRN Reason: Pain Last Admin: 07/25/17 12:29 Dose: 0.5 mg Hydromorphone HCl (Dilaudid) 0.5 mg IVPUSH ONETIME ONE Stop: 07/22/17 09:33 Last Admin: 07/22/17 09:38 Dose: 0.5 mg Hydroxyurea (Hydrea) 500 mg PO DAILY [facility] Last Admin: 07/26/17 19:54 Dose: Not Given Potassium Chloride 10 meq/ (Premix) 100 mls @ 50 mls/hr IV ASDIRECTED ONE Stop: 07/21/17 17:27 Last Admin: 07/21/17 15:37 Dose: 50 mls/hr Sodium Chloride (Normal Saline) 1,000 mls @ 150 mls/hr IV ASDIRECTED JOAQUIN Last Infusion: 07/21/17 19:59 Dose: 999 mls/hr Sodium Chloride (Normal Saline) 1,000 mls @ 999 mls/hr IV ONETIME JOAQUIN Potassium Chloride/Sodium Chloride (1/2 Ns With 20 Meq Kcl) 1,000 mls @ 150 mls /hr IV ASDIRECTED [facility] Last Admin: 07/23/17 04:00 Dose: 150 mls/hr Magnesium Sulfate 2 gm/ Premix 50 mls @ 25 mls/hr IV Q1H STA Stop: 07/22/17 07:32 Last Admin: 07/22/17 05:38 Dose: 25 mls/hr Magnesium Sulfate (Magnesium Sulfate 2 Gm In Water 50 Ml) Confirm Administered Dose 50 mls @ as directed .ROUTE .STK-MED ONE Stop: 07/22/17 05:31 Last Admin: 07/22/17 07:18 Dose: Not Given Magnesium Sulfate 2 gm/ Premix 50 mls @ 25 mls/hr IV ONETIME ONE Stop: 07/22/17 09:29 Last Admin: 07/22/17 08:07 Dose: 25 mls/hr Magnesium Sulfate 2 gm/ Premix 50 mls @ 25 mls/hr IV ONETIME ONE Stop: 07/22/17 15:59 Last Admin: 07/22/17 13:35 Dose: 25 mls/hr Ceftriaxone Sodium 2 gm/ (Sodium Chloride) 100 mls @ 200 mls/hr IV Q24H JOAQUIN Last Admin: 07/24/17 16:16 Dose: 200 mls/hr Ketorolac Tromethamine (Toradol) 15 mg IVPUSH Q8H PRN PRN Reason: Pain Last Admin: 07/27/17 08:45 Dose: 15 mg Ketorolac Tromethamine (Toradol) 30 mg IVPUSH ONETIME ONE Stop: 07/23/17 12:12 Last Admin: 07/23/17 12:28 Dose: 30 mg Methylprednisolone Sodium Succinate (Solu-Medrol) 40 mg IVPUSH Q12H [facility] Last Admin: 07/25/17 03:02 Dose: 40 mg Pantoprazole Sodium (Protonix Iv) 40 mg IVPUSH Q12H [facility] Last Admin: 07/23/17 09:30 Dose: Not Given Potassium Chloride (Potassium Chloride) 60 meq PO DAILY [facility] Stop: 07/24/17 09:01 Last Admin: 07/22/17 08:30 Dose: Not Given Potassium Chloride (Klor-Con M20) 60 meq PO DAILY [facility] Stop: 07/24/17 09:01 Potassium Chloride (Klor-Con M20) 60 meq PO BID [facility] Stop: 07/23/17 09:01 Last Admin: 07/23/17 09:27 Dose: Not Given Prednisone (Prednisone) 0 mg PO .Daily Taper [facility] PRN Reason: Taper Stop: 08/06/17 11:44 Prednisone (Prednisone) 40 mg PO DAILY [facility] Stop: 07/27/17 09:01 Last Admin: 07/27/17 08:46 Dose: 40 mg Tramadol HCl (Ultram) 50 mg PO TID PRN PRN Reason: Pain Last Admin: 07/23/17 06:27 Dose: 50 mg - Exam Quality Assessment: Reports: DVT Prophylaxis General: Reports: Alert, Oriented, Cooperative, No Acute Distress HEENT: Reports: Pupils Equal, EOMI, Mucous Membr. Moist/[place] Neck: Reports: Supple Lungs: Reports: Clear to Auscultation, Normal Respiratory Effort Cardiovascular: Reports: Regular Rate, Regular Rhythm GI/Abdominal Exam: Normal Bowel Sounds, Soft, Non-Tender (Female) Exam: Deferred Rectal (Female) Exam: Deferred Extremities: Normal Inspection, No Pedal Edema, Normal Capillary Refill Neurological: Reports: No New Focal Deficit Psy/Mental Status: Reports: Alert, Normal Affect, Normal Mood *Q Meaningful Use (DIS) - VTE *Q VTE Criteria *Q: - Stroke *Q Stroke Criteria *Q: - AMI *Q AMI Criteria *Q:
[2017-07-28] MEDS: Potassium Chloride 10% 20 MEQ/15 ML Soln 30 ML UD Cup PO SCH (08:53)
[2017-07-28] MEDS: Aspirin 81 MG Tab.EC PO SCH (08:53)
[2017-07-28] MEDS: DULoxetine 30 MG Cap PO SCH (08:53)
[2017-07-28] MEDS: Enoxaparin 40 MG/0.4 ML Syringe SUBCUT SCH (08:53)
[2017-07-28] MEDS: Hydroxyurea 500 MG Cap PO SCH (08:54)
[2017-07-28] MEDS ORDERED: predniSONE 10 MG Tab PO SCH (09:00)
[2017-07-28] MEDS ORDERED: Pneumococcal 13-Valent Conjugate Vaccine 0.5 ML Syringe IM ONE (09:49)
[2017-07-31] MEDS ORDERED: predniSONE 20 MG Tab PO SCH (09:00)
[2017-08-03] MEDS ORDERED: predniSONE 10 MG Tab PO SCH (09:00)
== END 2017-07-28 10:45 | disposition home or self-care (01) | DRG 640 ==
LOC: JD.ED 13:16 → JD.MS 16:53
PROVIDERS: ADMIT Internal Medicine Cardiovascular Disease; ATTEND Internal Medicine Cardiovascular Disease
PROC: 3E0234Z Introduction of Serum, Toxoid and Vaccine into Muscle, Percutaneous Approach (ICD-10-PCS; principal; 2017-07-28)
DX: E87.6 Hypokalemia (principal); K85.90 Acute pancreatitis without necrosis or infection, unspecified; N17.9 Acute kidney failure, unspecified; D47.3 Essential (hemorrhagic) thrombocythemia; N28.9 Disorder of kidney and ureter, unspecified; E83.42 Hypomagnesemia; J44.9 Chronic obstructive pulmonary disease, unspecified; R63.0 Anorexia; F17.210 Nicotine dependence, cigarettes, uncomplicated; F32.9 Major depressive disorder, single episode, unspecified; F41.9 Anxiety disorder, unspecified; Z23 Encounter for immunization; K11.20 Sialoadenitis, unspecified; R53.1 Weakness; D64.9 Anemia, unspecified; Z79.899 Other long term (current) drug therapy
CPT/HCPCS: 36415; 70450; 70450-26; 70490; 70490-26; 71020; 71020-26; 74176; 74176-26; 76705; 76705-26; 80048; 80053; 82607; 82728; 82746; 83540; 83690; 83735; 83880; 84443; 84466; 85014; 85018; 85025; 85652; 86140; 86738; 87486; 87581; 87633; 87641; 87798; 87899; 90471; 90670; 93005; 93010; 96365; 96366; 96375; 96376; 97110-GP; 97112-GP; 97116-GP; 97162-GP; 97165-GO; 97530-GP; 99285; 99285-25; A9270-GY; C9113; J0696; J1170; J1650; J1885; J2920; J3475; J3480; J7030; J7040; J7050; Q9963

== ENCOUNTER 2017-08-14 23:08 | Emergency (ER) | payer OTHER ==
[2017-08-14] MEDS ORDERED: Sodium Chloride 0.9% 10 ML Syringe FLUSH PRN (23:19)
[2017-08-14] MEDS: Sodium Chloride 0.9% 1,000 ML IV SCH (23:35)
[2017-08-15] MEDS ORDERED: Sodium Chloride 0.9% 1,000 ML IV ONE ×2 (00:31→01:43)
[2017-08-15] MEDS: Sodium Chloride 0.9% 1,000 ML IV SCH ×2 (00:35→01:44)
--- NOTE | 2017-08-15 00:39 | EDM.PDOC ---
ED HPI GENERAL MEDICAL PROBLEM - General Chief Complaint: Neurological Problem Stated Complaint: [facility] Time Seen by Provider: 08/14/17 23:19 Source of Information: Reports: EMS, Family History Limitations: Reports: Altered Mental Status - History of Present Illness INITIAL COMMENTS - FREE TEXT/NARRATIVE: The patient presents by ambulance for altered mental status. She was recently admitted to this hospital on 07/21/17. She was admitted for pancreatitis, hypokalemia, hypokalemia, renal insufficiency, hypomagnesemia, thrombocytosis, COPD, anorexia, leukocytosis and anemia. Her WBC was 23,000 and her platelets were elevated at 1million. She did well in the hospital. She was put on prednisone and hydroxeurea. 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 She was doing good. Her son came home from work and found the refrigerator door open and the patient laying half on the couch and floor. She would not answer questions very well but she would follow commands. She denied any pain. She appears to be very dry. She has no cough or fever. She has no chest pain, abdominal pain, nausea or vomiting. Her son said the last time he saw her well was yesterday evening at around 7pm. Onset: Gradual Duration: Day(s): Improves with: Reports: None Worsens with: Reports: None Associated Symptoms: Reports: Confusion. Denies: Chest Pain, Fever/Chills, Headaches, Loss of Appetite, Nausea/Vomiting, Shortness of Breath - Related Data Allergies Allergy/AdvReac Type Severity Reaction Status Date / Time No Known Allergies Allergy Verified 07/21/17 13:31 Home Meds: Home Meds Cyclobenzaprine [Flexeril] 10 mg PO BID PRN 07/21/17 [History] Furosemide 60 - 80 mg PO DAILY 07/21/17 [History] Gabapentin [Neurontin] 300 mg PO BEDTIME 07/21/17 [History] Levothyroxine 25 mcg PO DAILY 07/21/17 [History] Potassium Chloride [Klor-Con M20] 20 meq PO BID 07/21/17 [History] traMADol [Ultram] 1 - 2 tab PO Q6H PRN 07/21/17 [History] Aspirin [Halfprin] 81 mg PO DAILY #30 tab.ec 07/28/17 [Rx] DULoxetine [Cymbalta] 90 mg PO DAILY #30 cap 07/28/17 [Rx] Hydroxyurea [Hydrea] 500 mg PO DAILY #30 cap 07/28/17 [Rx] Mirtazapine [Remeron] 15 mg PO BEDTIME #30 tablet 07/28/17 [Rx] Ondansetron [Zofran ODT] 8 mg PO Q8H PRN #30 tab.dis 07/28/17 [Rx] Prednisone [IJD: predniSONE] 20 mg PO DAILY #6 tablet 07/28/17 [Rx] predniSONE 10 mg PO DAILY #3 tablet 07/28/17 [Rx] predniSONE 30 mg PO DAILY #9 tablet 07/28/17 [Rx] Past Medical History HEENT History: Reports: Sinusitis Other HEENT History: wear glasses Respiratory History: Reports: COPD, SOB Gastrointestinal History: Reports: Gastritis, Other (See Below) Other Gastrointestinal History: Bleeding ulcers in 1994 and had 1/2 of stomach removed 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 2003 or 2004 Psychiatric History: Reports: Anxiety, Depression Endocrine/Metabolic History: Reports: Hypothyroidism - Infectious Disease History Infectious Disease History: Reports: MRSA Other Infectious Disease History: sinus - Past Surgical History HEENT Surgical History: Reports: Naso-Sinus Surgery GI Surgical History: Reports: Appendectomy, Cholecystectomy, Colonoscopy, EGD Other Neurological Surgeries/Procedures: back pain chronic Musculoskeletal Surgical History: Reports: Arthroscopic Knee Social & Family History - Family History Cardiac: Reports: NM Musculoskeletal: Reports: None Neurological: Reports: Parkinson's Oncologic: Reports: Colon - Tobacco Use Smoking Status *Q: Former Smoker Years of Tobacco use: 40 Packs/Tins Daily: 1 Used Tobacco, but Quit: Yes Month Tobacco Last Used: nov Second Hand Smoke Exposure: No - Caffeine Use Caffeine Use: Reports: Coffee Caffeine Use Comment: rarely - Recreational Drug Use Recreational Drug Use: No ED ROS GENERAL - Review of Systems Review Of Systems: See Below Constitutional: Reports: Malaise, Weakness, Fatigue. Denies: Fever, Chills HEENT: Reports: No Symptoms Respiratory: Reports: No Symptoms Cardiovascular: Reports: No Symptoms Endocrine: Reports: No Symptoms GI/Abdominal: Reports: No Symptoms : Reports: No Symptoms Musculoskeletal: Reports: No Symptoms Skin: Reports: No Symptoms Neurological: Reports: Confusion - Physical Exam Exam: See Below Exam Limited By: Altered Mental Status General Appearance: Lethargic, Other (She will try to answer some questions. She denies pain) Ears: Normal External Exam Nose: Normal Inspection Throat/Mouth: Other (Dry mucus membranes) Head Exam: Atraumatic, Normocephalic Neck: Normal Inspection, Supple, Non-Tender Respiratory/Chest: No Respiratory Distress, Lungs Clear, Normal Breath Sounds Cardiovascular: Regular Rate, Rhythm, No Edema, No Murmur GI/Abdominal: Soft, Non-Tender, No Organomegaly, No Mass Rectal (Female) Exam: Heme + Stool Neuro Exam (Abbreviated): Other (The patient is lethargic. She will try to answer some questions. She has generalized weakness.) Course - Vital Signs Last Recorded V/S: Last Vital Signs Temp 96.5 F 08/15/17 02:10 Pulse 63 08/15/17 02:10 Resp 17 08/15/17 02:10 BP 83/62 L 08/15/17 02:10 Pulse Ox 100 08/14/17 23:26 - Orders/Labs/Meds Orders: Active Orders 24 hr Category Date Time Status Cardiac Monitoring [RC] . DIRECTED Care 08/14/17 23:19 Active EKG Documentation Completion [RC] STAT Care 08/14/17 23:20 Active Fecal Occult Blood Collection [RC] ASDIRECTED Care 08/15/17 01:45 Active Peripheral IV Care [RC] . DIRECTED Care 08/14/17 23:20 Active Chest 1V Frontal [CR] Stat Exams 08/14/17 23:20 Taken Head wo Cont [CT] Stat Exams 08/14/17 23:21 Taken CULTURE BLOOD [BC] Stat Lab 08/14/17 23:40 Received CULTURE BLOOD [BC] Stat Lab 08/14/17 23:47 Received RED BLOOD CELLS LP [BBK] Stat Lab 08/15/17 00:17 Results TYPE AND SCREEN [BBK] Stat Lab 08/15/17 00:17 Results DOPamine/Dextrose 5%-Water [DOPamine in D5W 400 MG/250 Med 08/15/17 02:30 Active ML] 400 mg in 250 ml IV TITRATE Sodium Chloride 0.9% [Normal Saline] 1,000 ml Med 08/14/17 23:30 Active IV .BOLUS Sodium Chloride 0.9% [Normal Saline] 1,000 ml Med 08/15/17 01:43 Active IV ONETIME Sodium Chloride 0.9% [Saline Flush] Med 08/14/17 23:19 Active 10 ml FLUSH ASDIRECTED PRN Blood Culture x2 Reflex Set [OM.PC] Stat Ot 08/14/17 23:21 Ordered Peripheral IV Insertion Adult [OM.PC] Stat Ot 08/14/17 23:19 Ordered Transfuse Red Blood Cells [COMM] Stat Ot 08/15/17 00:17 Ordered Medication Orders Sodium Chloride (Normal Saline) 1,000 mls @ 1,000 mls/hr IV .BOLUS JOAQUIN Last Infusion: 08/15/17 00:35 Dose: 1,000 mls/hr Admin: 08/14/17 23:35 Dose: 1,000 mls/hr Sodium Chloride (Normal Saline) 1,000 mls @ 999 mls/hr IV ONETIME ONE Stop: 08/15/17 02:43 Last Admin: 08/15/17 01:45 Dose: 999 mls/hr Dopamine HCl/Dextrose (Dopamine In D5w 400 Mg/250 Ml) 400 mg in 250 mls @ 0 mls /hr IV TITRATE JOAQUIN; 5 MCG/KG/MIN PRN Reason: Protocol Last Admin: 08/15/17 02:34 Dose: 4.89 mcg/kg/min, 10 mls/hr Sodium Chloride (Saline Flush) 10 ml FLUSH ASDIRECTED PRN PRN Reason: Keep Vein Open Last Admin: 08/14/17 23:35 Dose: 10 ml Labs: Laboratory Tests 08/14/17 08/14/17 08/14/17 Range/Units 23:40 23:40 23:40 WBC 8.28 (3.98-10.04) K/mm3 RBC 2.25 L (3.98-5.22) M/mm3 Hgb 6.4 L* (11.2-15.7) gm/L Hct 21.9 L (34.1-44.9) % MCV 97.3 H (79.4-94.8) fl MCH 28.4 (25.6-32.2) pg MCHC 29.2 L (32.2-35.5) g/dl RDW Std Deviation 54.0 H (36.4-46.3) fL Plt Count 927 H* (182-369) K/mm3 MPV 10.0 (9.4-12.3) fl Neut % (Auto) 48.9 (34.0-71.1) % Lymph % (Auto) 30.7 (19.3-51.7) % Bremer % (Auto) 18.2 H (4.7-12.5) % Eos % (Auto) 1.3 (0.7-5.8) Baso % (Auto) 0.4 (0.1-1.2) % Neut # (Auto) 4.05 (1.56-6.13) K/mm3 Lymph # (Auto) 2.54 (1.18-3.74) K/mm3 Bremer # (Auto) 1.51 H (0.24-0.36) K/mm3 Eos # (Auto) 0.11 (0.04-0.36) K/mm3 Baso # (Auto) 0.03 (0.01-0.08) K/mm3 Manual Slide Review Abnormal smear Sodium 146 H (136-145) mEq/L Potassium 3.5 (3.5-5.1) mEq/L Chloride 112 H (98-107) mEq/L Carbon Dioxide 17 L (21-32) mEq/L Anion Gap 20.5 H (5-15) BUN 21 H (7-18) mg/dL Creatinine 0.9 (0.55-1.02) mg/dL Est Cr Clr Drug Dosing 52.24 mL/min Estimated GFR (MDRD) > 60 (>60) mL/min BUN/Creatinine Ratio 23.3 H (14-18) Glucose 71 L (80-115) mg/dL POC Glucose (80-115) mg/dL Lactic Acid (0.4-2.0) mmol/L Calcium 8.6 (8.5-10.1) mg/dL Magnesium (1.8-2.4) mg/dl Total Bilirubin 0.2 (0.2-1.0) mg/dL AST 12 L (15-37) U/L ALT 12 L (14-59) U/L Alkaline Phosphatase 145 H (46-116) U/L Troponin I < 0.017 (0.00-0.056) ng/mL Total Protein 4.6 L (6.4-8.2) g/dl Albumin 1.4 L (3.4-5.0) g/dl Globulin 3.2 gm/dL Albumin/Globulin Ratio 0.4 L (1-2) Lipase 170 (73-393) U/L Urine Color (Yellow) Urine Appearance (Clear) Urine pH (5.0-8.0) Ur Specific [place] (1.005-1.030) Urine Protein (Negative) Urine Glucose (UA) (Negative) Urine Ketones (Negative) Urine Occult Blood (Negative) Urine Nitrite (Negative) Urine Bilirubin (Negative) Urine Urobilinogen (0.2-1.0) Ur Leukocyte Esterase (Negative) Urine RBC (0-5) /hpf Urine WBC (0-5) /hpf Ur Epithelial Cells (0-5) /hpf Urine Bacteria (FEW) /hpf Urine Mucus (FEW) /hpf Blood Type AB POSITIVE Gel Antibody Screen Negative Crossmatch See Detail 08/14/17 08/14/17 08/15/17 Range/Units 23:40 23:40 00:10 WBC (3.98-10.04) K/mm3 RBC (3.98-5.22) M/mm3 Hgb (11.2-15.7) gm/L Hct (34.1-44.9) % MCV (79.4-94.8) fl MCH (25.6-32.2) pg MCHC (32.2-35.5) g/dl RDW Std Deviation (36.4-46.3) fL Plt Count (182-369) K/mm3 MPV (9.4-12.3) fl Neut % (Auto) (34.0-71.1) % Lymph % (Auto) (19.3-51.7) % Bremer % (Auto) (4.7-12.5) % Eos % (Auto) (0.7-5.8) Baso % (Auto) (0.1-1.2) % Neut # (Auto) (1.56-6.13) K/mm3 Lymph # (Auto) (1.18-3.74) K/mm3 Bremer # (Auto) (0.24-0.36) K/mm3 Eos # (Auto) (0.04-0.36) K/mm3 Baso # (Auto) (0.01-0.08) K/mm3 Manual Slide Review Sodium (136-145) mEq/L Potassium (3.5-5.1) mEq/L Chloride (98-107) mEq/L Carbon Dioxide (21-32) mEq/L Anion Gap (5-15) BUN (7-18) mg/dL Creatinine (0.55-1.02) mg/dL Est Cr Clr Drug Dosing mL/min Estimated GFR (MDRD) (>60) mL/min BUN/Creatinine Ratio (14-18) Glucose (80-115) mg/dL POC Glucose (80-115) mg/dL Lactic Acid 0.7 (0.4-2.0) mmol/L Calcium (8.5-10.1) mg/dL Magnesium 1.7 L (1.8-2.4) mg/dl Total Bilirubin (0.2-1.0) mg/dL AST (15-37) U/L ALT (14-59) U/L Alkaline Phosphatase (46-116) U/L Troponin I (0.00-0.056) ng/mL Total Protein (6.4-8.2) g/dl Albumin (3.4-5.0) g/dl Globulin gm/dL Albumin/Globulin Ratio (1-2) Lipase (73-393) U/L Urine Color Yellow (Yellow) Urine Appearance Clear (Clear) Urine pH 6.0 (5.0-8.0) Ur Specific [place] 1.020 (1.005-1.030) Urine Protein Negative (Negative) Urine Glucose (UA) Negative (Negative) Urine Ketones 1+ H (Negative) Urine Occult Blood Negative (Negative) Urine Nitrite Negative (Negative) Urine Bilirubin Negative (Negative) Urine Urobilinogen 0.2 (0.2-1.0) Ur Leukocyte Esterase Negative (Negative) Urine RBC Not seen (0-5) /hpf Urine WBC 0-5 (0-5) /hpf Ur Epithelial Cells 0-5 (0-5) /hpf Urine Bacteria Few (FEW) /hpf Urine Mucus Not seen (FEW) /hpf Blood Type Gel Antibody Screen Crossmatch 08/15/17 08/15/17 Range/Units 00:39 01:03 WBC (3.98-10.04) K/mm3 RBC (3.98-5.22) M/mm3 Hgb (11.2-15.7) gm/L Hct (34.1-44.9) % MCV (79.4-94.8) fl MCH (25.6-32.2) pg MCHC (32.2-35.5) g/dl RDW Std Deviation (36.4-46.3) fL Plt Count (182-369) K/mm3 MPV (9.4-12.3) fl Neut % (Auto) (34.0-71.1) % Lymph % (Auto) (19.3-51.7) % Bremer % (Auto) (4.7-12.5) % Eos % (Auto) (0.7-5.8) Baso % (Auto) (0.1-1.2) % Neut # (Auto) (1.56-6.13) K/mm3 Lymph # (Auto) (1.18-3.74) K/mm3 Bremer # (Auto) (0.24-0.36) K/mm3 Eos # (Auto) (0.04-0.36) K/mm3 Baso # (Auto) (0.01-0.08) K/mm3 Manual Slide Review Sodium (136-145) mEq/L Potassium (3.5-5.1) mEq/L Chloride (98-107) mEq/L Carbon Dioxide (21-32) mEq/L Anion Gap (5-15) BUN (7-18) mg/dL Creatinine (0.55-1.02) mg/dL Est Cr Clr Drug Dosing mL/min Estimated GFR (MDRD) (>60) mL/min BUN/Creatinine Ratio (14-18) Glucose (80-115) mg/dL POC Glucose 56 L 185 H (80-115) mg/dL Lactic Acid (0.4-2.0) mmol/L Calcium (8.5-10.1) mg/dL Magnesium (1.8-2.4) mg/dl Total Bilirubin (0.2-1.0) mg/dL AST (15-37) U/L ALT (14-59) U/L Alkaline Phosphatase (46-116) U/L Troponin I (0.00-0.056) ng/mL Total Protein (6.4-8.2) g/dl Albumin (3.4-5.0) g/dl Globulin gm/dL Albumin/Globulin Ratio (1-2) Lipase (73-393) U/L Urine Color (Yellow) Urine Appearance (Clear) Urine pH (5.0-8.0) Ur Specific [place] (1.005-1.030) Urine Protein (Negative) Urine Glucose (UA) (Negative) Urine Ketones (Negative) Urine Occult Blood (Negative) Urine Nitrite (Negative) Urine Bilirubin (Negative) Urine Urobilinogen (0.2-1.0) Ur Leukocyte Esterase (Negative) Urine RBC (0-5) /hpf Urine WBC (0-5) /hpf Ur Epithelial Cells (0-5) /hpf Urine Bacteria (FEW) /hpf Urine Mucus (FEW) /hpf Blood Type Gel Antibody Screen Crossmatch Meds: Medications Generic Name Dose Route Start Last Admin Trade Name Freq PRN Reason Stop Dose Admin Sodium Chloride 1,000 mls @ 1,000 mls/hr 08/14/17 23:30 08/15/17 00:35 Normal Saline IV Infused .BOLUS JOAQUIN Infusion Sodium Chloride 1,000 mls @ 999 mls/hr 08/15/17 01:43 08/15/17 01:45 Normal Saline IV 08/15/17 02:43 999 mls/hr ONETIME ONE Administration Dopamine HCl/Dextrose 400 mg in 250 mls @ 0 mls/hr 08/15/17 02:30 08/15/17 02 :34 Dopamine In D5w 400 Mg/250 Ml IV 4.89 mcg/kg/min TITRATE JOAQUIN 10 mls/hr Protocol Administration 5 MCG/KG/MIN Sodium Chloride 10 ml 08/14/17 23:19 08/14/17 23:35 Saline Flush FLUSH 10 ml ASDIRECTED PRN Administration Keep Vein Open Discontinued Medications Generic Name Dose Route Start Last Admin Trade Name Freq PRN Reason Stop Dose Admin Dextrose/Water 50 ml 08/15/17 00:40 08/15/17 00:42 Dextrose 50% In Water IVPUSH 08/15/17 00:41 50 ml ONETIME ONE Administration Dextrose/Water Confirm 08/15/17 00:46 08/15/17 00:45 Dextrose 50% In Water Administered 08/15/17 00:47 Not Given Dose 50 ml .ROUTE .STK-MED ONE Hydrocortisone Sodium Succinate 100 mg 08/15/17 00:41 08/15/17 00:46 Solu-Cortef IVPUSH 08/15/17 00:42 100 mg ONETIME ONE Administration Sodium Chloride 1,000 mls @ 1,000 mls/hr 08/15/17 00:31 08/15/17 00:36 Normal Saline IV 08/15/17 01:30 1,000 mls/hr ONETIME ONE Administration Sodium Chloride Confirm 08/15/17 01:30 08/15/17 01:43 Normal Saline Administered 08/15/17 01:31 Not Given Dose 1,000 mls @ as directed .ROUTE .STK-MED ONE Dopamine HCl/Dextrose 400 mg in 250 mls @ 0 mls/hr 08/15/17 01:45 Dopamine In D5w 400 Mg/250 Ml IV TITRATE JOAQUIN Protocol 5 MCG/KG/MIN - Re-Assessments/Exams Free Text/Narrative Re-Assessment/Exam: 08/15/17 00:57 Her BP was low when she arrived. I ordered a 30mL/kg bolus. I was initially suspecting she may be septic. I also ordered an EKG that showed a NSR with no acute changes. Her CXR show no infiltrated. Her WBC was normal. Her Hgb was low at 6.4. Her platelets were high at 927. Her Na was elevated at 146. Her anion gap was elevated at 20.5. Her creatinine was normal at 0.9. Her bed side glucose was 56. I ordered 25grams of D50 IV. Her alk phos was elevated at 145. Her troponin was negative. Her UA shows no UTI. I am less suspicious for sepsis. Her blood pressure remains low after almost 2L of fluid. She was on prednisone when discharged from the hospital. She may be withdrawing from them or in adrenal insufficency. I have ordered 100mg of hydrocortisone IV. Her blood pressure did improve after that. 08/15/17 01:18 I did a rectal exam and she was guiac positive. Her BP has improved to 94 systolic. I feel she is to sick to take care of here. She will need to go to [place]. I discussed this will her son and her. She says she feels better. I called [facility] in [place] and they were full. They felt she needed to go to the ICU and I agree. I called [facility] in [place] and their ICU was full and they could not take her. I talked with out hospitalist Dr Beach and she would not accept her. She felt she needed multi specialty care. The patient's blood pressure dropped to 63 systolic. I ordered a dopamine drip. She is getting blood now. I have called [facility] in [place]. 08/15/17 02:42 I talked with the finance accounting internship Dr Mason and he accepted the patient. Departure - Departure Time of Disposition: 02:45 Disposition: DC/[facility]fer to [facility] 02 Clinical Impression: Thrombocytosis, Dehydration, Adrenal insufficiency Anemia Qualifiers: Anemia type: unspecified type Qualified Code(s): D64.9 - Anemia, unspecified Hypotension Qualifiers: Hypotension type: unspecified hypotension type Qualified Code(s): I95.9 - Hypotension, unspecified GI bleed Qualifiers: GI bleed type/associated pathology: unspecified gastrointestinal hemorrhage type Qualified Code(s): K92.2 - Gastrointestinal hemorrhage, unspecified - Discharge Information Referrals: Kassy Escalona ORDER PACKER OR PACKAGER [Primary Care Provider] - Forms: ED Department Discharge - My Orders Last 24 Hours: My Active Orders 08/14/17 23:19 Cardiac Monitoring [RC] . DIRECTED Sodium Chloride 0.9% [Saline Flush] 10 ml FLUSH ASDIRECTED PRN Peripheral IV Insertion Adult [OM.PC] Stat 08/14/17 23:20 EKG Documentation Completion [RC] STAT Peripheral IV Care [RC] . DIRECTED Chest 1V Frontal [CR] Stat 08/14/17 23:21 Head wo Cont [CT] Stat Blood Culture x2 Reflex Set [OM.PC] Stat 08/14/17 23:30 Sodium Chloride 0.9% [Normal Saline] 1,000 ml IV .BOLUS 08/14/17 23:40 CULTURE BLOOD [BC] Stat 08/14/17 23:47 CULTURE BLOOD [BC] Stat 08/15/17 00:17 RED BLOOD CELLS LP [BBK] Stat TYPE AND SCREEN [BBK] Stat Transfuse Red Blood Cells [COMM] Stat 08/15/17 01:43 Sodium Chloride 0.9% [Normal Saline] 1,000 ml IV ONETIME 08/15/17 01:45 Fecal Occult Blood Collection [RC] ASDIRECTED 08/15/17 02:30 DOPamine/Dextrose 5%-Water [DOPamine in D5W 400 MG/250 ML] 400 mg in 250 ml IV TITRATE - Assessment/Plan Last 24 Hours: My Active Orders 08/14/17 23:19 Cardiac Monitoring [RC] . DIRECTED Sodium Chloride 0.9% [Saline Flush] 10 ml FLUSH ASDIRECTED PRN Peripheral IV Insertion Adult [OM.PC] Stat 08/14/17 23:20 EKG Documentation Completion [RC] STAT Peripheral IV Care [RC] . DIRECTED Chest 1V Frontal [CR] Stat 08/14/17 23:21 Head wo Cont [CT] Stat Blood Culture x2 Reflex Set [OM.PC] Stat 08/14/17 23:30 Sodium Chloride 0.9% [Normal Saline] 1,000 ml IV .BOLUS 08/14/17 23:40 CULTURE BLOOD [BC] Stat 08/14/17 23:47 CULTURE BLOOD [BC] Stat 08/15/17 00:17 RED BLOOD CELLS LP [BBK] Stat TYPE AND SCREEN [BBK] Stat Transfuse Red Blood Cells [COMM] Stat 08/15/17 01:43 Sodium Chloride 0.9% [Normal Saline] 1,000 ml IV ONETIME 08/15/17 01:45 Fecal Occult Blood Collection [RC] ASDIRECTED 08/15/17 02:30 DOPamine/Dextrose 5%-Water [DOPamine in D5W 400 MG/250 ML] 400 mg in 250 ml IV TITRATE
[2017-08-15] MEDS ORDERED: 50% Dextrose in Water 50 ML Syringe IVPUSH ONE (00:40)
[2017-08-15] MEDS ORDERED: Hydrocortisone Sodium Succinate 100 MG/2 ML SDV IVPUSH ONE (00:41)
[2017-08-15] MEDS ORDERED: 50% Dextrose in Water 50 ML Syringe ONE (00:46)
[2017-08-15] MEDS ORDERED: Sodium Chloride 0.9% 1,000 ML ONE (01:30)
[2017-08-15] MEDS ORDERED: DOPamine/Dextrose 5%-Water 400 MG/250 ML BAG IV SCH ×2 (01:45→02:30)
--- NOTE | 2017-08-15 07:18 | CR ---
Chest: Frontal view of the chest was obtained. Comparison: Prior chest x-ray of 07/21/17. Heart size and mediastinum are normal. Stents seen overlying the right lung apex. Minimal blunting of both lateral costophrenic angles are seen which is chronic. No acute parenchymal density is seen within either lung. Impression: 1. Incidental findings. Nothing acute is appreciated. Diagnostic code #2
--- NOTE | 2017-08-15 07:42 | CT ---
Head CT Technique: Multiple axial sections through the brain were obtained. Intravenous contrast was not utilized. Comparison: Prior head CT study of 07/22/17. Findings: Ventricles along with basal cisterns and sulci over the convexities appear within normal limits for the patient's age. No abnormal parenchymal densities are seen. No evidence of intracranial hemorrhage. No midline shift or mass effect is seen. Bone window settings were reviewed which show no acute calvarial abnormalities. Slight mucosal thickening is seen within the upper left maxillary sinus. This is stable from prior exam. Impression: 1. Minimal sinus finding which is felt to be stable. 2. No acute intracranial abnormality is seen. No significant change from prior exam. Diagnostic code #2 I agree with preliminary report issued by [employer] ([employer] preliminary report dictated on 08/15/17, 1:49 AM Central Time)
== END 2017-08-15 03:39 ==
LOC: JD.ED 23:08
DX: K92.2 Gastrointestinal hemorrhage, unspecified (principal); E27.40 Unspecified adrenocortical insufficiency; E86.0 Dehydration; D47.3 Essential (hemorrhagic) thrombocythemia; D64.9 Anemia, unspecified; I95.9 Hypotension, unspecified; J44.9 Chronic obstructive pulmonary disease, unspecified; F32.9 Major depressive disorder, single episode, unspecified; E03.9 Hypothyroidism, unspecified; Z87.891 Personal history of nicotine dependence; Z79.82 Long term (current) use of aspirin; Z79.899 Other long term (current) drug therapy
CPT/HCPCS: 36415; 70450; 71010; 80053; 81001; 82270; 82962; 83605; 83690; 83735; 84484; 85025; 86850; 86900; 86901; 86922; 87040; 93005; 96361; 96365; 96375; 99285; J1265; J1720; J7040; J7050; J7060; P9016; P9612; 36430; 93010

== ENCOUNTER 2017-09-06 14:44 | Emergency (ER) | payer BC, OTHER ==
--- NOTE | 2017-09-06 17:06 | EDM.PDOC ---
ED HPI GENERAL MEDICAL PROBLEM - General Chief Complaint: Gastrointestinal Problem Stated Complaint: RE-INSERTION OF NG TUBE Time Seen by Provider: 09/06/17 15:55 Source of Information: Reports: Patient History Limitations: Reports: No Limitations - History of Present Illness INITIAL COMMENTS - FREE TEXT/NARRATIVE: 62-year-old female presents for reinsertion of her NG tube. Patient reports that she was seen in the ER in August. She was air flighted to [facility]. Reports that she had a perforated stomach and an abscess. She left [facility] just yesterday after being there for 3 weeks. She left with an NG tube, 2 JONA drains and a PICC line. Reports that she is getting antibiotics through her PICC line every 24 hours. She reports that the NG tube fell approximately one hour ago. She has been getting continuous nutrition through her NG tube at approximately 50 miles an hour of [facility]. Abdomen Pain Score (Numeric/FACES): 5 - Related Data Allergies Allergy/AdvReac Type Severity Reaction Status Date / Time No Known Allergies Allergy Verified 07/21/17 13:31 Home Meds: Home Meds Cyclobenzaprine [Flexeril] 10 mg PO BID PRN 07/21/17 [History] Furosemide 60 mg PO ASDIRECTED PRN 07/21/17 [History] Gabapentin [Neurontin] 300 mg PO BEDTIME 07/21/17 [History] Levothyroxine 25 mcg PO DAILY 07/21/17 [History] Potassium Chloride [Klor-Con M20] 20 meq PO BID 07/21/17 [History] traMADol [Ultram] 1 - 2 tab PO Q6H PRN 07/21/17 [History] DULoxetine [Cymbalta] 90 mg PO DAILY #30 cap 07/28/17 [Rx] Mirtazapine [Remeron] 15 mg PO BEDTIME #30 tablet 07/28/17 [Rx] Apixaban [Eliquis] 10 mg PO BID 09/06/17 [History] Ertapenem [INVanz] 1,000 mg IV DAILY 09/06/17 [History] Ferrous Sulfate 325 mg PO DAILY 09/06/17 [History] Prochlorperazine [Compazine] 5 mg NGTUBE ASDIRECTED 09/06/17 [History] Promethazine [Phenergan] 25 mg NGTUBE Q8H PRN 09/06/17 [History] Zolpidem [Ambien] 10 mg NGTUBE BEDTIME 09/06/17 [History] Past Medical History HEENT History: Reports: Sinusitis Other HEENT History: wear glasses Respiratory History: Reports: COPD, SOB Gastrointestinal History: Reports: Gastritis, Other (See Below) Other Gastrointestinal History: Bleeding ulcers in 1994 and had 1/2 of stomach removed [employer] History: Reports: Neurological History: Reports: CVA, Seizure Other Neuro History: 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 2003 or 2004 Psychiatric History: Reports: Anxiety, Depression Endocrine/Metabolic History: Reports: Hypothyroidism - Infectious Disease History Infectious Disease History: Reports: MRSA Other Infectious Disease History: sinus - Past Surgical History HEENT Surgical History: Reports: Naso-Sinus Surgery GI Surgical History: Reports: Appendectomy, Cholecystectomy, Colonoscopy, EGD Other Neurological Surgeries/Procedures: back pain chronic Musculoskeletal Surgical History: Reports: Arthroscopic Knee Social & Family History - Family History Cardiac: Reports: NV Musculoskeletal: Reports: None Neurological: Reports: Parkinson's Oncologic: Reports: Colon - Tobacco Use Smoking Status *Q: Former Smoker Years of Tobacco use: 40 Packs/Tins Daily: 1 Used Tobacco, but Quit: Yes Month Tobacco Last Used: 2015 Second Hand Smoke Exposure: No - Caffeine Use Caffeine Use: Reports: None Caffeine Use Comment: rarely - Recreational Drug Use Recreational Drug Use: No ED ROS GENERAL - Review of Systems Review Of Systems: ROS reveals no pertinent complaints other than HPI. ED EXAM, GI/ABD - Physical Exam Exam: See Below Exam Limited By: No Limitations General Appearance: Alert, WD/WN, No Apparent Distress, Thin Respiratory/Chest: No Respiratory Distress, Lungs Clear, Normal Breath Sounds Cardiovascular: Normal Peripheral Pulses, Regular Rate, Rhythm, No Murmur GI/Abdominal Exam: Soft, Other (2 JONA drains to the abdomen) Extremities: Other (PICC line to the left arm) Neurological: Alert, Oriented, Normal Cognition Psychiatric: Normal Affect, Normal Mood Skin Exam: Warm, Dry, Pallor Course - Vital Signs Last Recorded V/S: Last Vital Signs Temp 36.3 C 09/06/17 14:57 Pulse 73 09/06/17 14:57 Resp 13 09/06/17 14:57 BP 120/65 09/06/17 14:57 Pulse Ox 94 L 09/06/17 14:57 - Radiology Interpretation Free Text/Narrative:: chest xray shows goo placement of the NG tube. - Re-Assessments/Exams Free Text/Narrative Re-Assessment/Exam: 09/06/17 17:00 I Asked nursing staff to place NG tube. RN was able to do this with ease. She then ordered a chest x-ray and flushed the tube. The tube was soaked in sterile water prior to insertion. Patient tolerated this well. Chest x-ray showed good placement of the NG tube. I checked on the patient. Asked about placement. She felt that it was not as far in as was previously. I reviewed the patient's discharge records. Discharge recorder was slightly confused as it reference both an NG and an NJ tube. I'm concerned this was an NJ tube. I then called and spoke with [facility] Anthony. They confirmed that this was an NJ tube. I asked the patient about this and she reports that this was placed under fluoroscopy while in [facility]. States that they had a difficult time placing the NJ tube. We do not have these capabilities today. I discussed the case with Abhinav in [place]. There interventional radiologist does not place NJ tubes. One called then talked to GI who referred me back in a inventional radiology. I then discussed with Dr. Krishna, interventional radiologist at [facility] in [place]. He questions if this needs to be done emergently. While I do feel that this inserted urgently unsure if she needs this tonight. Unfortunately, we do not have any records from her hospitalization in [facility]. The patient tells me that the NJ tube is in placed in effort to bypass her stomach to allow for healing. As stated she gets Peptamen 50 mils per hour continuously to the NJ tube. She has also has been taking most of her medications through the NJ tube. she does take at least her Cymbalta by mouth. [facility] sips of [facility] and some ice chips by mouth. I called [facility] and spoke with a provider there. I was unable to catch his name. [place] that she could take medications by mouth. I then called [facility] in [place] back. Plan will be to have her go to the ER tomorrow morning to have the NJ tube placed. She may take her medications by mouth tonight. Patient is in agreement and understanding treatment plan. Discharge instructions as documented. Departure - Departure Time of Disposition: 17:00 Disposition: Home, Self-Care 01 Condition: Good Clinical Impression: Encounter for nasogastric (NG) tube placement - Discharge Information Instructions: Care of a Feeding Tube, [id number] Referrals: Kassy Escalona, [employer] [Primary Care Provider] - Forms: ED Department Discharge Additional Instructions: take your p.m. medications orally tonight. Tomorrow morning go to the [facility] ER. I spoke with Dr. Krishna, interventional radiologist. He'll be expecting you tomorrow morning. Please go through the [facility] ER. Please return to the ER if your symptoms change or worsen.
--- NOTE | 2017-09-07 12:54 | CR ---
Chest: Portable view of the chest was obtained. Comparison: Prior chest x-ray of 08/14/17. Chronic pleural thickening is seen within the right lung base. Right brachiocephalic stent is seen. Minimal blunting of the lateral left costophrenic angle is seen which is stable. No acute infiltrates are seen. Pigtail catheter is noted within the left upper chest. Catheter overlying the mediastinum and terminating within the area of the stomach. Additional pigtail catheter extends from the inferior edge of the film into the mid left abdomen. Impression: 1. Tubing is seen overlying the mediastinum terminating in the area of the stomach. 2. Two pigtail catheters as noted above. 3. Chronic pleural thickening within both costophrenic angles. Diagnostic code #3
== END 2017-09-06 18:45 | disposition home or self-care (01) ==
LOC: JD.ED 14:44
DX: Z46.59 Encounter for fitting and adjustment of other gastrointestinal appliance and device (principal); J44.9 Chronic obstructive pulmonary disease, unspecified; Z79.899 Other long term (current) drug therapy; Z87.891 Personal history of nicotine dependence
CPT/HCPCS: 71045; 71045-26; 99283

== ENCOUNTER 2018-11-04 17:01 | Emergency (ER) | payer MEDICARE ==
[2018-11-04] MEDS ORDERED: Sodium Chloride 0.9% 10 ML Syringe FLUSH PRN (19:10)
[2018-11-04] MEDS ORDERED: Sodium Chloride 0.9% 1,000 ML IV SCH ×2 (19:15→22:30)
--- NOTE | 2018-11-04 19:50 | CT ---
Head CT Technique: Multiple axial sections through the brain were obtained. Intravenous contrast was not utilized. Comparison: Previous head CT study of 08/14/17. Findings: Ventricles along with basal cisterns and sulci over the convexities are within normal limits for the patient's age. No abnormal parenchymal densities are seen. No evidence of intracranial hemorrhage. No midline shift or mass effect is seen. Bone window settings were reviewed which shows previous sinus surgery. Mild areas of mucosal thickening are seen within the visualized maxillary sinuses which appears chronic. No acute calvarial abnormality is seen. Impression: 1. Sinus findings as noted above which are felt to be pre-existing and incidental. 2. Nothing acute is appreciated on noncontrast head CT study. 3. No significant change is seen from prior study. Diagnostic code #2
[2018-11-04] MEDS ORDERED: Potassium Chloride 10 MEQ in Premix Bag 1 BAG IV SCH (22:15)
[2018-11-04] MEDS ORDERED: Lactated Ringers 1,000 ML IV SCH (22:15)
[2018-11-04] MEDS ORDERED: cefTRIAXone 2 GM in Sodium Chloride 0.9% 100 ML IV ONE ×2 (22:17→22:32)
--- NOTE | 2018-11-04 22:19 | EDM.PDOC ---
ED HPI GENERAL MEDICAL PROBLEM - General Chief Complaint: General Stated Complaint: CONFUSION Time Seen by Provider: 11/04/18 18:57 Source of Information: Reports: Patient, Family History Limitations: Reports: Altered Mental Status - History of Present Illness INITIAL COMMENTS - FREE TEXT/NARRATIVE: The patient was brought to the ER by her son for confusion. Her son says she has been more confused lately and weak. She was discharged from [facility] 3 days ago. She was there for GI issues. About a 1 1/2 years ago she was sent from here to [facility] in [place] for pancreatitis and sepsis. While she was down there she was found to have a gastric perforation and needed surgery. Back in 1994 she had the same thing and had 1/2 of her stomach removed. She had surgery at [facility] and went home. Later she went to [facility]. She has been seen there a few times. She had a stent put in her stomach and a PEG tube placed. She also has a colostomy. She is on TPN for now to let the tubes heal. She was oriented to place and person but not time. Her son found her in her car in her garage. The engine was not running. The patient thought she had to go to a doctor's appointment. She denies fever, chills, cough, congestion, runny nose, chest pain or shortness of breath. She does have some mild abdominal pain. But nothing new. Her oxygen saturations were low at 89% when she arrived. She was put on some oxygen when she arrived. Onset: Gradual Duration: Day(s): Location: Reports: Abdomen Quality: Reports: Ache Severity: Mild Improves with: Reports: None Worsens with: Reports: None Associated Symptoms: Denies: Chest Pain, Cough, Fever/Chills, Headaches, Nausea/ Vomiting, Shortness of Breath Lower Back Pain Score (Numeric/FACES): 6 - Related Data Allergies Allergy/AdvReac Type Severity Reaction Status Date / Time No Known Allergies Allergy Verified 11/04/18 17:16 Home Meds: Home Meds Cyclobenzaprine [Flexeril] 10 mg PO BID PRN 07/21/17 [History] Furosemide 60 mg PO ASDIRECTED PRN 07/21/17 [History] Gabapentin [Neurontin] 300 mg PO BEDTIME 07/21/17 [History] Levothyroxine 25 mcg PO DAILY 07/21/17 [History] Potassium Chloride [Klor-Con M20] 20 meq PO BID 07/21/17 [History] traMADol [Ultram] 1 - 2 tab PO Q6H PRN 07/21/17 [History] DULoxetine [Cymbalta] 90 mg PO DAILY #30 cap 07/28/17 [Rx] Mirtazapine [Remeron] 15 mg PO BEDTIME #30 tablet 07/28/17 [Rx] Apixaban [Eliquis] 10 mg PO BID 09/06/17 [History] Ertapenem [INVanz] 1,000 mg IV DAILY 09/06/17 [History] Ferrous Sulfate 325 mg PO DAILY 09/06/17 [History] Prochlorperazine [Compazine] 5 mg NGTUBE ASDIRECTED 09/06/17 [History] Promethazine [Phenergan] 25 mg NGTUBE Q8H PRN 09/06/17 [History] Zolpidem [Ambien] 10 mg NGTUBE BEDTIME 09/06/17 [History] Past Medical History HEENT History: Reports: Sinusitis Other HEENT History: wear glasses Respiratory History: Reports: COPD, SOB Gastrointestinal History: Reports: Gastritis, Other (See Below) Other Gastrointestinal History: Bleeding ulcers in 1994 and had 1/2 of stomach removed [employer] History: Reports: Neurological History: Reports: CVA, Seizure Other Neuro History: 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 2003 or 2004 Psychiatric History: Reports: Anxiety, Depression Endocrine/Metabolic History: Reports: Hypothyroidism - Infectious Disease History Infectious Disease History: Reports: MRSA Other Infectious Disease History: sinus - Past Surgical History HEENT Surgical History: Reports: Naso-Sinus Surgery GI Surgical History: Reports: Appendectomy, Cholecystectomy, Colonoscopy, EGD Other Neurological Surgeries/Procedures: back pain chronic Musculoskeletal Surgical History: Reports: Arthroscopic Knee Social & Family History - Family History Cardiac: Reports: [place] Musculoskeletal: Reports: None Neurological: Reports: Parkinson's Oncologic: Reports: Colon - Tobacco Use Smoking Status *Q: Never Smoker - Caffeine Use Caffeine Use: Reports: None Caffeine Use Comment: rarely - Recreational Drug Use Recreational Drug Use: No ED ROS GENERAL - Review of Systems Review Of Systems: See Below Constitutional: Reports: No Symptoms HEENT: Reports: No Symptoms Respiratory: Reports: No Symptoms Cardiovascular: Reports: No Symptoms Endocrine: Reports: No Symptoms GI/Abdominal: Reports: Abdominal Pain. Denies: Nausea, Vomiting : Reports: No Symptoms Musculoskeletal: Reports: No Symptoms ED EXAM, GENERAL - Physical Exam Exam: See Below Exam Limited By: No Limitations General Appearance: Alert, No Apparent Distress Ears: Normal External Exam Nose: Normal Inspection Head: Atraumatic, Normocephalic Neck: Normal Inspection Respiratory/Chest: No Respiratory Distress, Decreased Breath Sounds Cardiovascular: Regular Rate, Rhythm, No Edema, No Murmur GI/Abdominal: Soft, No Organomegaly, Tender (Mild generalized tenderness), Other (PEG tube and colostomy) Back Exam: Normal Inspection Extremities: Normal Inspection Neurological: Alert, No Motor/Sensory Deficits, Other (She was orientated to person and place but not time) EKG INTERPRETATION EKG Date: 11/05/18 Time: 19:57 Rhythm: Other (atrial paced rhythm) Rate (Beats/Min): 83 Course - Vital Signs Last Recorded V/S: Last Vital Signs Temp 98.7 F 11/04/18 23:38 Pulse 81 11/04/18 17:16 Resp 19 11/04/18 23:38 BP 131/74 11/04/18 23:38 Pulse Ox 99 11/04/18 23:38 - Orders/Labs/Meds Orders: Active Orders 24 hr Category Date Time Status Cardiac Monitoring [RC] . DIRECTED Care 11/04/18 19:10 Active EKG Documentation Completion [RC] STAT Care 11/04/18 19:10 Active Peripheral IV Care [RC] . DIRECTED Care 11/04/18 19:11 Active CXR [Chest 1V Frontal] [CR] Stat Exams 11/04/18 19:11 Taken CARBOXYHEMOGLOBIN [BG] Stat Lab 11/04/18 22:26 Ordered CULTURE BLOOD [BC] Stat Lab 11/04/18 21:00 Received CULTURE BLOOD [BC] Stat Lab 11/04/18 21:04 Received RED BLOOD CELLS LP [BBK] Stat Lab 11/04/18 20:10 Results TYPE AND SCREEN [BBK] Stat Lab 11/04/18 20:10 Results UA W/MICROSCOPIC [URIN] Stat Lab 11/04/18 23:10 Results Lactated Ringers [Ringers, Lactated] 1,000 ml Med 11/04/18 22:15 Active IV ASDIRECTED Potassium Chloride [KCl 10 MEQ in Water 100 ML] 10 meq Med 11/04/18 22:15 Active Premix Bag 1 bag IV ASDIRECTED Sodium Chloride 0.9% [Normal Saline] 1,000 ml Med 11/04/18 19:15 Active IV .BOLUS Sodium Chloride 0.9% [Normal Saline] 1,000 ml Med 11/04/18 22:30 Active IV ASDIRECTED Sodium Chloride 0.9% [Saline Flush] Med 11/04/18 19:10 Active 10 ml FLUSH ASDIRECTED PRN Blood Culture x2 Reflex Set [OM.PC] Stat Ot 11/04/18 20:31 Ordered Peripheral IV Insertion Adult [OM.PC] Stat Ot 11/04/18 19:10 Ordered Transfuse Red Blood Cells [COMM] Stat Ot 11/04/18 20:30 Ordered Medication Orders Sodium Chloride (Normal Saline) 1,000 mls @ 1,000 mls/hr IV .BOLUS JOAQUIN Last Admin: 11/04/18 19:52 Dose: 1,000 mls/hr Potassium Chloride 10 meq/ (Premix) 100 mls @ 100 mls/hr IV ASDIRECTED JOAQUIN Last Admin: 11/04/18 23:15 Dose: 100 mls/hr Lactated Ringer's (Ringers, Lactated) 1,000 mls @ 150 mls/hr IV ASDIRECTED JOAQUIN Last Admin: 11/04/18 23:16 Dose: 150 mls/hr Sodium Chloride (Normal Saline) 1,000 mls @ 15 mls/hr IV ASDIRECTED JOAQUIN Stop: 11/08/18 22:27 Last Admin: 11/04/18 23:15 Dose: 15 mls/hr Sodium Chloride (Saline Flush) 10 ml FLUSH ASDIRECTED PRN PRN Reason: Keep Vein Open Last Admin: 11/04/18 19:52 Dose: 10 ml Labs: Laboratory Tests 11/04/18 11/04/18 11/04/18 Range/Units 20:10 20:10 20:10 WBC 11.41 H (3.98-10.04) K/mm3 RBC 2.81 L (3.98-5.22) M/mm3 Hgb 7.9 L (11.2-15.7) gm/L Hct 27.8 L (34.1-44.9) % MCV 98.9 H (79.4-94.8) fl MCH 28.1 (25.6-32.2) pg MCHC 28.4 L (32.2-35.5) g/dl RDW Std Deviation 47.8 H (36.4-46.3) fL Plt Count 726 H (182-369) K/mm3 MPV 9.7 (9.4-12.3) fl Neut % (Auto) 78.8 H (34.0-71.1) % Lymph % (Auto) 11.7 L (19.3-51.7) % [place] % (Auto) 6.9 (4.7-12.5) % Eos % (Auto) 1.9 (0.7-5.8) Baso % (Auto) 0.5 (0.1-1.2) % Neut # (Auto) 8.99 H (1.56-6.13) K/mm3 Lymph # (Auto) 1.33 (1.18-3.74) K/mm3 [place] # (Auto) 0.79 H (0.24-0.36) K/mm3 Eos # (Auto) 0.22 (0.04-0.36) K/mm3 Baso # (Auto) 0.06 (0.01-0.08) K/mm3 Manual Slide Review Abnormal smear Puncture Site ABG pH (7.35-7.45) ABG pCO2 (35.0-45.0) mmHg ABG pO2 (80.0-100.0) mmHg ABG HCO3 (22.0-26.0) meq/L ABG O2 Saturation (96.0-97.0) % ABG Base Excess (-2-2.0) Aram Test A-a Gradient mmHg O2 Delivery Device Oxygen Flow Rate FiO2 (21.00-100.00) % Sodium 147 H (136-145) mEq/L Potassium 2.9 L (3.5-5.1) mEq/L Chloride 111 H (98-107) mEq/L Carbon Dioxide 21 (21-32) mEq/L Anion Gap 17.9 H (5-15) BUN 35 H (7-18) mg/dL Creatinine 1.0 (0.55-1.02) mg/dL Est Cr Clr Drug Dosing 45.38 mL/min Estimated GFR (MDRD) 56 (>60) mL/min BUN/Creatinine Ratio 35.0 H (14-18) Glucose 80 (80-115) mg/dL Lactic Acid (0.4-2.0) mmol/L Calcium 9.1 (8.5-10.1) mg/dL Magnesium 2.3 (1.8-2.4) mg/dl Total Bilirubin 0.3 (0.2-1.0) mg/dL AST 32 (15-37) U/L ALT 19 (14-59) U/L Alkaline Phosphatase 156 H (46-116) U/L Troponin I 0.021 (0.00-0.056) ng/mL Total Protein 7.0 (6.4-8.2) g/dl Albumin 2.5 L (3.4-5.0) g/dl Globulin 4.5 gm/dL Albumin/Globulin Ratio 0.6 L (1-2) Urine Color (Yellow) Urine Appearance (Clear) Urine pH (5.0-8.0) Ur Specific Anderson (1.005-1.030) Urine Protein (Negative) Urine Glucose (UA) (Negative) Urine Ketones (Negative) Urine Occult Blood (Negative) Urine Nitrite (Negative) Urine Bilirubin (Negative) Urine Urobilinogen (0.2-1.0) Ur Leukocyte Esterase (Negative) Blood Type AB POSITIVE Gel Antibody Screen Negative Crossmatch See Detail 11/04/18 11/04/18 11/04/18 Range/Units 21:00 22:45 23:10 WBC (3.98-10.04) K/mm3 RBC (3.98-5.22) M/mm3 Hgb (11.2-15.7) gm/L Hct (34.1-44.9) % MCV (79.4-94.8) fl MCH (25.6-32.2) pg MCHC (32.2-35.5) g/dl RDW Std Deviation (36.4-46.3) fL Plt Count (182-369) K/mm3 MPV (9.4-12.3) fl Neut % (Auto) (34.0-71.1) % Lymph % (Auto) (19.3-51.7) % [place] % (Auto) (4.7-12.5) % Eos % (Auto) (0.7-5.8) Baso % (Auto) (0.1-1.2) % Neut # (Auto) (1.56-6.13) K/mm3 Lymph # (Auto) (1.18-3.74) K/mm3 [place] # (Auto) (0.24-0.36) K/mm3 Eos # (Auto) (0.04-0.36) K/mm3 Baso # (Auto) (0.01-0.08) K/mm3 Manual Slide Review Puncture Site Lt radial ABG pH 7.27 L (7.35-7.45) ABG pCO2 40.8 (35.0-45.0) mmHg ABG pO2 58.0 L (80.0-100.0) mmHg ABG HCO3 18.1 L (22.0-26.0) meq/L ABG O2 Saturation 83.2 L (96.0-97.0) % ABG Base Excess -7.7 L (-2-2.0) Aram Test Positive A-a Gradient 70 mmHg O2 Delivery Device Nasal cannula Oxygen Flow Rate 2.0 FiO2 28.00 (21.00-100.00) % Sodium (136-145) mEq/L Potassium (3.5-5.1) mEq/L Chloride (98-107) mEq/L Carbon Dioxide (21-32) mEq/L Anion Gap (5-15) BUN (7-18) mg/dL Creatinine (0.55-1.02) mg/dL Est Cr Clr Drug Dosing mL/min Estimated GFR (MDRD) (>60) mL/min BUN/Creatinine Ratio (14-18) Glucose (80-115) mg/dL Lactic Acid 0.8 (0.4-2.0) mmol/L Calcium (8.5-10.1) mg/dL Magnesium (1.8-2.4) mg/dl Total Bilirubin (0.2-1.0) mg/dL AST (15-37) U/L ALT (14-59) U/L Alkaline Phosphatase (46-116) U/L Troponin I (0.00-0.056) ng/mL Total Protein (6.4-8.2) g/dl Albumin (3.4-5.0) g/dl Globulin gm/dL Albumin/Globulin Ratio (1-2) Urine Color Yellow (Yellow) Urine Appearance Slt cloudy H (Clear) Urine pH 6.0 (5.0-8.0) Ur Specific Anderson 1.025 (1.005-1.030) Urine Protein 1+ H (Negative) Urine Glucose (UA) Negative (Negative) Urine Ketones Negative (Negative) Urine Occult Blood Negative (Negative) Urine Nitrite Negative (Negative) Urine Bilirubin Negative (Negative) Urine Urobilinogen 0.2 (0.2-1.0) Ur Leukocyte Esterase Negative (Negative) Blood Type Gel Antibody Screen Crossmatch Meds: Medications Generic Name Dose Route Start Last Admin Trade Name Freq PRN Reason Stop Dose Admin Sodium Chloride 1,000 mls @ 1,000 mls/hr 11/04/18 19:15 11/04/18 19:52 Normal Saline IV 1,000 mls/hr .BOLUS JOAQUIN Administration Potassium Chloride 10 meq/ 100 mls @ 100 mls/hr 11/04/18 22:15 11/04/18 23:15 Premix IV 100 mls/hr ASDIRECTED JOAQUIN Administration Lactated Ringer's 1,000 mls @ 150 mls/hr 11/04/18 22:15 11/04/18 23:16 Ringers, Lactated IV 150 mls/hr ASDIRECTED JOAQUIN Administration Sodium Chloride 1,000 mls @ 15 mls/hr 11/04/18 22:30 11/04/18 23:15 Normal Saline IV 11/08/18 22:27 15 mls/hr ASDIRECTED JOAQUIN Administration Sodium Chloride 10 ml 11/04/18 19:10 11/04/18 19:52 Saline Flush FLUSH 10 ml ASDIRECTED PRN Administration Keep Vein Open Discontinued Medications Generic Name Dose Route Start Last Admin Trade Name Freq PRN Reason Stop Dose Admin Ceftriaxone Sodium 2 gm/ 100 mls @ 200 mls/hr 11/04/18 22:17 11/04/18 23:04 Sodium Chloride IV 11/04/18 22:46 Not Given ONETIME ONE Levofloxacin/Dextrose 750 mg/ 150 mls @ 100 mls/hr 11/04/18 22:31 11/04/18 23 :17 Premix IV 11/05/18 00:00 100 mls/hr ONETIME ONE Administration Vancomycin HCl 1.25 gm/ Sodium 250 mls @ 250 mls/hr 11/04/18 22:30 11/04/18 23:05 Chloride IV 11/04/18 23:29 Not Given ONETIME ONE Ceftriaxone Sodium 2 gm/ 100 mls @ 200 mls/hr 11/04/18 22:32 11/04/18 23:14 Sodium Chloride IV 11/04/18 23:01 200 mls/hr ONETIME ONE Administration Vancomycin HCl 1 gm/ Sodium 250 mls @ 250 mls/hr 11/04/18 22:47 11/04/18 23: 17 Chloride IV 11/04/18 23:29 250 mls/hr ONETIME ONE Administration Vancomycin HCl Confirm 11/04/18 22:40 11/04/18 23:04 Vancocin Administered 11/04/18 22:41 Not Given Dose 2 gm .ROUTE .[facility] ONE - Re-Assessments/Exams Free Text/Narrative Re-Assessment/Exam: 11/05/18 00:06 I ordered oxygen, EKG, CXR, CT of her head, labs, and UA. The CT of her head shows sinus findings which are felt to be pre-existing and incidental. Nothing acute is appreciated on noncontrast head CT study. No significant change is seen from prior study. Her CXR shows and infiltrate in the right middle lung. Her WBC was elevated at 11.41. Her Hgb was low at 7.9. I have ordered 2 units of PRBCs. Her platelets were elevated at 726. Her Na was elevated at 147. Her K was low at 2.9. I did order K by IV. Her anion gap was elevated at 17.9. Her creatinine was normal at 1 with a GFR of 56. 11/05/18 00:14 I have ordered lactic acid which was normal at 0.8 and blood cultures. I also started rocephin 2 grams IV. I feel she needs to be admitted. I talked with my hospitalist Dr Beach and she felt she needed to go down the road to [place]. I called [facility] and talked with Dr Aguilar and he accepted the patient. He did want an ABG, UA, levaquin, and vancomycin. The patient has hospital acquired pneumonia. Her ABG shows pH that is low at 7.27. Her pCO2 of 40.8. Her pO2 is low at 40.8. Her pO2 is low at 58. Her Hco3 is low at 18.1. Her sats were 83.2. I feel this may have been a venous sample but the pH is low. I did up her oxygen to 2L. She is more alert now and orientated. There is a delay with transportation. We have 2 ambulances out on transfers at this time. 11/05/18 00:20 Departure - Departure Time of Disposition: 00:45 Disposition: DC/Tfer to [facility] 02 Condition: Serious Clinical Impression: Pneumonia, Hypokalemia, Confusion, Acidosis Anemia Qualifiers: Anemia type: unspecified type Qualified Code(s): D64.9 - Anemia, unspecified - Discharge Information Referrals: Kassy Escalona NP [Primary Care Provider] - Forms: ED Department Discharge - My Orders Last 24 Hours: My Active Orders 11/04/18 19:10 Cardiac Monitoring [RC] . DIRECTED EKG Documentation Completion [RC] STAT Sodium Chloride 0.9% [Saline Flush] 10 ml FLUSH ASDIRECTED PRN Peripheral IV Insertion Adult [OM.PC] Stat 11/04/18 19:11 Peripheral IV Care [RC] . DIRECTED CXR [Chest 1V Frontal] [CR] Stat 11/04/18 19:15 Sodium Chloride 0.9% [Normal Saline] 1,000 ml IV .BOLUS 11/04/18 20:10 RED BLOOD CELLS LP [BBK] Stat TYPE AND SCREEN [BBK] Stat 11/04/18 20:30 Transfuse Red Blood Cells [COMM] Stat 11/04/18 20:31 Blood Culture x2 Reflex Set [OM.PC] Stat 11/04/18 21:00 CULTURE BLOOD [BC] Stat 11/04/18 21:04 CULTURE BLOOD [BC] Stat 11/04/18 22:15 Lactated Ringers [Ringers, Lactated] 1,000 ml IV ASDIRECTED Potassium Chloride [KCl 10 MEQ in Water 100 ML] 10 meq Premix Bag 1 bag IV ASDIRECTED 11/04/18 22:26 CARBOXYHEMOGLOBIN [BG] Stat 11/04/18 22:30 Sodium Chloride 0.9% [Normal Saline] 1,000 ml IV ASDIRECTED 11/04/18 23:10 UA W/MICROSCOPIC [URIN] Stat - Assessment/Plan Last 24 Hours: My Active Orders 11/04/18 19:10 Cardiac Monitoring [RC] . DIRECTED EKG Documentation Completion [RC] STAT Sodium Chloride 0.9% [Saline Flush] 10 ml FLUSH ASDIRECTED PRN Peripheral IV Insertion Adult [OM.PC] Stat 11/04/18 19:11 Peripheral IV Care [RC] . DIRECTED CXR [Chest 1V Frontal] [CR] Stat 11/04/18 19:15 Sodium Chloride 0.9% [Normal Saline] 1,000 ml IV .BOLUS 11/04/18 20:10 RED BLOOD CELLS LP [BBK] Stat TYPE AND SCREEN [BBK] Stat 11/04/18 20:30 Transfuse Red Blood Cells [COMM] Stat 11/04/18 20:31 Blood Culture x2 Reflex Set [OM.PC] Stat 11/04/18 21:00 CULTURE BLOOD [BC] Stat 11/04/18 21:04 CULTURE BLOOD [BC] Stat 11/04/18 22:15 Lactated Ringers [Ringers, Lactated] 1,000 ml IV ASDIRECTED Potassium Chloride [KCl 10 MEQ in Water 100 ML] 10 meq Premix Bag 1 bag IV ASDIRECTED 11/04/18 22:26 CARBOXYHEMOGLOBIN [BG] Stat 11/04/18 22:30 Sodium Chloride 0.9% [Normal Saline] 1,000 ml IV ASDIRECTED 11/04/18 23:10 UA W/MICROSCOPIC [URIN] Stat
[2018-11-04] MEDS ORDERED: Levofloxacin/Dextrose 5%-Water 750 MG in Premix Bag 1 BAG IV ONE (22:31)
[2018-11-04] MEDS ORDERED: Vancomycin 1 GM AdvVial ONE (22:40)
--- NOTE | 2018-11-05 07:14 | CR ---
Chest: Portable view of the chest was obtained. Comparison: Prior chest x-ray of 09/06/17. Thick area of atelectasis seen within the right lung base. Lungs otherwise are clear. Vascular stent is noted overlying the right lung apex. Pacemaker is seen. Bony structures are osteopenic. Impression: 1. Thick area of atelectasis within the right lung base. 2. Other incidental findings. Diagnostic code #2
== END 2018-11-05 02:00 ==
LOC: JD.ED 17:01
DX: J18.9 Pneumonia, unspecified organism (principal); E87.2 Acidosis; E87.6 Hypokalemia; D64.9 Anemia, unspecified; J44.9 Chronic obstructive pulmonary disease, unspecified; E03.9 Hypothyroidism, unspecified; F41.9 Anxiety disorder, unspecified; F32.9 Major depressive disorder, single episode, unspecified; Z79.899 Other long term (current) drug therapy; Z86.73 Personal history of transient ischemic attack (TIA), and cerebral infarction without residual deficits
CPT/HCPCS: 36415; 36430; 36600; 70450; 71045; 80053; 81001; 82375; 82803; 83605; 83735; 84484; 85025; 86850; 86900; 86901; 86922; 87040; 93005; 96361; 96365; 96367; 96368; 99285; J0696; J1956; J3370; J3480; J7030; J7040; J7050; J7120; P9016; 93010

== ENCOUNTER 2022-02-12 07:06 | Day surgery (SDC) | payer MEDICARE, BC ==
[~2022-02-12 07:06] MED LIST: Lactated Ringers 1,000 ML IV SCH; Lidocaine 1%/Sod Bicarbonate in NS 8.4% 1 ML Syringe IDERM PRN; Sodium Chloride 0.9% 10 ML Syringe FLUSH PRN; Sodium Chloride 0.9% 10 ML Syringe FLUSH SCH
[2022-02-12] MEDS ORDERED: Lidocaine 1% 4 ML ONE (07:12)
[2022-02-12] MEDS ORDERED: Midazolam 1 MG/ML 2 ML SDV ONE (07:12)
[2022-02-12] MEDS ORDERED: fentaNYL 100 MCG/2 ML SDV ONE (07:12)
[2022-02-12] MEDS ORDERED: Propofol 200 MG/20 ML SDV ONE ×2 (07:12→08:59)
[2022-02-12] MEDS ORDERED: Albuterol 0.083% 2.5 MG/3 ML Neb Soln NEB ONE (07:39)
== END 2022-02-12 10:02 | disposition home or self-care (01) ==
LOC: JD.SDS 07:06
PROVIDERS: ATTEND Surgery
DX: K57.30 Diverticulosis of large intestine without perforation or abscess without bleeding (principal); K64.4 Residual hemorrhoidal skin tags; F32.A Depression, unspecified; K21.9 Gastro-esophageal reflux disease without esophagitis; I10 Essential (primary) hypertension; E78.00 Pure hypercholesterolemia, unspecified; E03.9 Hypothyroidism, unspecified; G47.00 Insomnia, unspecified; M81.0 Age-related osteoporosis without current pathological fracture; E55.9 Vitamin D deficiency, unspecified; F41.9 Anxiety disorder, unspecified; Z79.899 Other long term (current) drug therapy; Z79.890 Hormone replacement therapy; Z90.49 Acquired absence of other specified parts of digestive tract; Z98.890 Other specified postprocedural states; Z87.891 Personal history of nicotine dependence
CPT/HCPCS: 45378; J2250; J2704; J3010; J7120; 00811

== ENCOUNTER 2022-07-30 06:57 | Day surgery (SDC) | payer MEDICARE, BC ==
[2022-07-30] MEDS ORDERED: Lidocaine 1% 6 ML ONE (07:09)
[2022-07-30] MEDS ORDERED: Propofol 200 MG/20 ML SDV ONE (07:09)
[2022-07-30] MEDS ORDERED: Ondansetron 4 MG/2 ML SDV IVPUSH PRN (07:42)
[2022-07-30] MEDS ORDERED: Ondansetron 4 MG/2 ML SDV ONE (08:00)
== END 2022-07-30 09:35 | disposition home or self-care (01) ==
LOC: JD.SDS 06:57
PROVIDERS: ATTEND Surgery
DX: K29.70 Gastritis, unspecified, without bleeding (principal); K31.7 Polyp of stomach and duodenum; K25.9 Gastric ulcer, unspecified as acute or chronic, without hemorrhage or perforation; K31.89 Other diseases of stomach and duodenum; K21.9 Gastro-esophageal reflux disease without esophagitis; K44.9 Diaphragmatic hernia without obstruction or gangrene; F41.9 Anxiety disorder, unspecified; M19.90 Unspecified osteoarthritis, unspecified site; F17.210 Nicotine dependence, cigarettes, uncomplicated; F32.A Depression, unspecified; E78.00 Pure hypercholesterolemia, unspecified; I10 Essential (primary) hypertension; E03.9 Hypothyroidism, unspecified; G47.00 Insomnia, unspecified; G62.9 Polyneuropathy, unspecified; M81.0 Age-related osteoporosis without current pathological fracture; E55.9 Vitamin D deficiency, unspecified; F17.200 Nicotine dependence, unspecified, uncomplicated; Z79.899 Other long term (current) drug therapy; Z90.49 Acquired absence of other specified parts of digestive tract; Z98.890 Other specified postprocedural states; Z98.84 Bariatric surgery status; Z95.1 Presence of aortocoronary bypass graft; Z79.890 Hormone replacement therapy
CPT/HCPCS: 43239; 93005; J2405; J2704; J7120; 00731

== ENCOUNTER 2022-12-09 06:54 | Emergency (ER) | payer MEDICARE, BC ==
[2022-12-09] MEDS ORDERED: Sodium Chloride 0.9% 1,000 ML IV ONE (07:30)
[2022-12-09] MEDS ORDERED: Sodium Chloride 0.9% 10 ML Syringe FLUSH PRN ×2 (07:30→08:36)
[2022-12-09] MEDS ORDERED: cefTRIAXone 1 GM in Sodium Chloride 0.9% 100 ML IV ONE (08:12)
[2022-12-09 08:19] LABS: CORONAVIRUS COVID-19 NAA NEGATIVE (NEGATIVE)
[2022-12-09] MEDS ORDERED: Iopamidol 612 MG/ML 100 ML Bottle IVPUSH ONE (08:36)
[2022-12-09] MEDS ORDERED: Etomidate 2 MG/ML 20 ML SDV IVPUSH ONE (10:39)
[2022-12-09] MEDS ORDERED: Succinylcholine 200 MG/10 ML MDV IVPUSH ONE (10:41)
[2022-12-09] MEDS ORDERED: propofoL 100 ML IV SCH (10:45)
[2022-12-09] MEDS ORDERED: Sodium Chloride 0.9% 1,000 ML IV SCH (10:45)
[2022-12-09] MEDS ORDERED: Doxycycline 100 MG in Sodium Chloride 0.9% 100 ML IV ONE (11:19)
== END 2022-12-09 12:44 ==
LOC: JD.ED 06:54
DX: R09.02 Hypoxemia (principal); J18.9 Pneumonia, unspecified organism; A41.9 Sepsis, unspecified organism; J96.01 Acute respiratory failure with hypoxia; R41.82 Altered mental status, unspecified; E87.20 Acidosis, unspecified; J44.9 Chronic obstructive pulmonary disease, unspecified; Z72.0 Tobacco use; Z20.822 Contact with and (suspected) exposure to COVID-19
CPT/HCPCS: 0241U; 31500; 36415; 36600; 70450; 71045; 74177; 80053; 81001; 82803; 83605; 83690; 83735; 84484; 85007; 85027; 85610; 85730; 86140; 87040; 87154; 93005; 96361; 96365; 96367; 96375; 99285; J0330; J0696; J2704; J3490; J7030; Q9967; 87077; 87186; 93010; 99291

== ENCOUNTER 2023-01-20 19:48 | Emergency (ER) | payer MEDICARE, BC ==
[2023-01-20] MEDS ORDERED: Sodium Chloride 0.9% 1,000 ML IV ONE ×2 (20:43→22:49)
[2023-01-20] MEDS ORDERED: Iopamidol 755 Mg/ML 100 ML Bottle IVPUSH ONE (21:02)
[2023-01-20] MEDS ORDERED: Sodium Chloride 0.9% 10 ML Syringe FLUSH PRN (21:02)
[2023-01-20] MEDS ORDERED: Sodium Chloride 0.9% 100 ML IV SCH (21:15)
[2023-01-20 21:33] LABS: BASE EXCESS ARTERIAL -10.2 (-2-2.0); BICARBONATE,ARTERIAL 16.3 meq/L (22.0-26.0); PCO2 ARTERIAL 41.1 mmHg (35.0-45.0)
[2023-01-20 21:41] LABS: HEMOGLOBIN 7.6 gm/dl (11.2-15.7); MEAN CORPUSCULAR HEMOGLOBIN 33.6 pg (25.6-32.2); MEAN CORPUSCULAR HGB CONC 29.2 g/dl (32.2-35.5); PLATELET COUNT,PLT 421 K/mm3 (182-369); RED BLOOD CELL COUNT 2.26 M/mm3 (3.98-5.22); WHITE BLOOD CELL COUNT,WBC 6.32 K/mm3 (3.98-10.04)
[2023-01-20 22:15] LABS: INR 1.09; PROTHROMBIN TIME 11.6 SECONDS (9.7-12.0)
[2023-01-20 22:17] LABS: PTT,PARTIAL THROMBOPLSTIN TIME 32.3 SECONDS (21.7-31.4)
[2023-01-20 22:18] LABS: D-DIMER QUANTITATIVE 0.88 mg/L (0.19-0.50)
[2023-01-20 22:19] LABS: CORONAVIRUS COVID-19 NAA NEGATIVE (NEGATIVE); INFLUENZA A NAA NEGATIVE (NEGATIVE); RESPIRATORY SYNCYTIAL VIR NAA NEGATIVE (NEGATIVE)
[2023-01-20 22:23] LABS: LACTIC ACID 0.9 mmol/L (0.4-2.0)
[2023-01-20 22:38] LABS: BAND PERCENT MAN 0 % (0-10); BASOPHILS PERCENT MAN 1 (0.1-1.2); EOSINOPHILS PERCENT MAN 3 % (0.7-5.8); LYMPHOCYTES % ATYPICAL MANUAL 0 %; LYMPHOCYTES PERCENT MAN 19 % (20-40); MONOCYTES PERCENT MAN 9 % (2-10)
[2023-01-20 22:41] LABS: ANISOCYTOSIS 2+ MODERATE; HYPOCHROMASIA FEW
[2023-01-20] MEDS ORDERED: Iopamidol 612 MG/ML 100 ML Bottle IVPUSH ONE (22:52)
[2023-01-20 23:13] LABS: A/G RATIO 0.6 (1-2); ALBUMIN 2.2 g/dl (3.4-5.0); ANION GAP 14.5 (5-15); BILIRUBIN TOTAL 0.3 mg/dL (0.2-1.0); BUN/CREATININE RATIO 18.5 (14-18); C-REACTIVE PROTEIN 1.5 mg/dL (<1.0); CALCIUM 8.7 mg/dL (8.5-10.1); CREATININE 1.3 mg/dL (0.55-1.02); EST CRCL DRUG DOSING (CG) 27.9 mL/min; MAGNESIUM 2.1 mg/dL (1.8-2.4); POTASSIUM,K 4.5 mEq/L (3.5-5.1); TSH 11.553 uIU/mL (0.358-3.74)
[2023-01-21 01:03] LABS: APPEARANCE,URINE CLEAR (Clear); BILIRUBIN,URINE NEGATIVE (Negative); COLOR,URINE YELLOW (Yellow); GLUCOSE,URINE NEGATIVE (Negative); KETONES,URINE NEGATIVE (Negative); LEUKOCYTE ESTERASE,URINE NEGATIVE (Negative); NITRITE,URINE NEGATIVE (Negative); OCCULT BLOOD,URINE NEGATIVE (Negative); PROTEIN,URINE 1+ (Negative); UROBILINOGEN,URINE 0.2 (0.2-1.0)
[2023-01-21 01:22] LABS: BACTERIA,URINE FEW /hpf (FEW); EPITHELIAL CELLS,URINE 0-5 /hpf (0-5); HYALINE CASTS,URINE 0-5 /lpf (0-5); MUCUS,URINE FEW /hpf (FEW); RBC,URINE 0-5 /hpf (0-5)
== END 2023-01-21 03:17 | disposition home or self-care (01) ==
LOC: JD.ED 19:48
DX: R91.8 Other nonspecific abnormal finding of lung field (principal); I95.9 Hypotension, unspecified; D64.9 Anemia, unspecified; E03.9 Hypothyroidism, unspecified; E78.00 Pure hypercholesterolemia, unspecified; J44.9 Chronic obstructive pulmonary disease, unspecified; F17.210 Nicotine dependence, cigarettes, uncomplicated; Z79.899 Other long term (current) drug therapy; Z20.822 Contact with and (suspected) exposure to COVID-19
CPT/HCPCS: 0241U; 36415; 36600; 70450; 70496; 70498; 71045; 71260; 74177; 80053; 81001; 82803; 82947; 83605; 83735; 83880; 84443; 84484; 85007; 85027; 85379; 85610; 85730; 86140; 93005; 96360; 96361; 99285; J3490; J7030; Q9967; 93010; 99284

== ENCOUNTER 2023-01-25 09:48 | Emergency (ER) | payer MEDICARE, BC ==
[2023-01-25] MEDS ORDERED: Sodium Chloride 0.9% 10 ML Syringe FLUSH PRN (10:50)
[2023-01-25] MEDS ORDERED: Sodium Chloride 0.9% 1,000 ML IV SCH (11:00)
[2023-01-25 11:18] LABS: BASOPHILS ABSOLUTE AUTO 0.05 K/mm3 (0.01-0.08); BASOPHILS PERCENT AUTO 0.8 % (0.1-1.2); EOSINOPHILS ABSOLUTE AUTO 0.08 K/mm3 (0.04-0.36); EOSINOPHILS PERCENT AUTO 1.2 (0.7-5.8); HEMATOCRIT 28.2 % (34.1-44.9); HEMOGLOBIN 8.3 gm/dl (11.2-15.7); IMMATURE GRAN ABSOLUTE AUTO 0.01 K/mm3 (0.00-0.10); IMMATURE GRAN PERCENT AUTO 0.2 % (<=1.0); LYMPHOCYTES ABSOLUTE AUTO 1.07 K/mm3 (1.18-3.74); LYMPHOCYTES PERCENT AUTO 16.6 % (19.3-51.7); MEAN CORPUSCULAR HEMOGLOBIN 33.6 pg (25.6-32.2); MEAN CORPUSCULAR HGB CONC 29.4 g/dl (32.2-35.5); MEAN CORPUSCULAR VOLUME 114.2 fl (79.4-94.8); MEAN PLATELET VOLUME 9.8 fl (9.4-12.3); MONOCYTES ABSOLUTE AUTO 0.46 K/mm3 (0.24-0.36); MONOCYTES PERCENT AUTO 7.1 % (4.7-12.5); NEUTROPHILS ABSOLUTE AUTO 4.77 K/mm3 (1.56-6.13); NEUTROPHILS PERCENT AUTO 74.1 % (34.0-71.1); PLATELET COUNT,PLT 482 K/mm3 (182-369); RED BLOOD CELL COUNT 2.47 M/mm3 (3.98-5.22); WHITE BLOOD CELL COUNT,WBC 6.44 K/mm3 (3.98-10.04)
[2023-01-25 11:44] LABS: LACTIC ACID 0.9 mmol/L (0.4-2.0)
[2023-01-25 11:45] LABS: A/G RATIO 0.6 (1-2); ALBUMIN 2.2 g/dl (3.4-5.0); ANION GAP 14.2 (5-15); BILIRUBIN TOTAL 0.3 mg/dL (0.2-1.0); BUN/CREATININE RATIO 22.2 (14-18); C-REACTIVE PROTEIN 0.9 mg/dL (<1.0); CALCIUM 8.9 mg/dL (8.5-10.1); CREATININE 0.9 mg/dL (0.55-1.02); EST CRCL DRUG DOSING (CG) 40.13 mL/min; MAGNESIUM 2.2 mg/dL (1.8-2.4); POTASSIUM,K 5.2 mEq/L (3.5-5.1)
[2023-01-25 12:35] LABS: SLIDE REVIEW ABNORMAL SMEAR
[2023-01-25 14:08] LABS: APPEARANCE,URINE CLEAR (Clear); BILIRUBIN,URINE NEGATIVE (Negative); COLOR,URINE LIGHT YELLOW (Yellow); GLUCOSE,URINE NEGATIVE (Negative); KETONES,URINE NEGATIVE (Negative); LEUKOCYTE ESTERASE,URINE NEGATIVE (Negative); NITRITE,URINE NEGATIVE (Negative); OCCULT BLOOD,URINE NEGATIVE (Negative); PROTEIN,URINE NEGATIVE (Negative); UROBILINOGEN,URINE 0.2 (0.2-1.0)
[2023-01-25 14:26] LABS: BACTERIA,URINE RARE /hpf (FEW); MUCUS,URINE FEW /hpf (FEW); RBC,URINE 0-5 /hpf (0-5); SQUAMOUS EPITHELIAL CELLS,UR 0-5 /hpf (0-5); WBC,URINE 0-5 /hpf (0-5)
[2023-01-25 14:38] LABS: BARBITURATE SCREEN,URINE NEGATIVE (CUTOFF=200); BENZODIAZEPINES SCREEN,URINE NEGATIVE (CUTOFF=150); BUPRENORPHINE SCREEN,URINE NEGATIVE (CUTOFF=10); METHADONE SCREEN, URINE NEGATIVE (CUTOFF=200); METHAMPHETAMINES SCREEN, URINE NEGATIVE (CUTOFF=500); OXYCODONE SCREEN,URINE NEGATIVE (CUT0FF=100); PROPOXYPHENE SCREEN,URINE NEGATIVE (CUTOFF=300); THC SCREEN,URINE 20 NG/ML NEGATIVE (CUTOFF=50)
[2023-01-25 14:42] LABS: AMPHETAMINES SCREEN, URINE NEGATIVE (CUTOFF=500)
[2023-01-25] MEDS ORDERED: DAPTOmycin 500 MG in Sodium Chloride 0.9% 50 ML IV ONE (15:13)
== END 2023-01-25 16:34 | disposition home or self-care (01) ==
LOC: JD.ED 09:48
DX: R40.1 Stupor (principal); E86.0 Dehydration; J44.9 Chronic obstructive pulmonary disease, unspecified; Z79.899 Other long term (current) drug therapy; Z72.0 Tobacco use
CPT/HCPCS: 36415; 70450; 71045; 80053; 80306; 80307; 81001; 82550; 82947; 83605; 83735; 84484; 85025; 86140; 87040; 93005; 96361; 96365; 99285; J7030; J0878; J3490

== ENCOUNTER 2023-02-07 06:43 | Emergency (ER) | payer MEDICARE, BC ==
[2023-02-07] MEDS ORDERED: Sodium Chloride 0.9% 10 ML Syringe FLUSH PRN (07:00)
[2023-02-07 07:08] LABS: BASE EXCESS ARTERIAL -10.7 (-2-2.0); BICARBONATE,ARTERIAL 14.9 meq/L (22.0-26.0); O2 SATURATION ARTERIAL 99.9 % (96.0-97.0); PCO2 ARTERIAL 34.2 mmHg (35.0-45.0)
[2023-02-07 07:25] LABS: BASOPHILS ABSOLUTE AUTO 0.03 K/mm3 (0.01-0.08); BASOPHILS PERCENT AUTO 0.4 % (0.1-1.2); EOSINOPHILS ABSOLUTE AUTO 0.04 K/mm3 (0.04-0.36); EOSINOPHILS PERCENT AUTO 0.5 (0.7-5.8); HEMATOCRIT 27.8 % (34.1-44.9); HEMOGLOBIN 8.3 gm/dl (11.2-15.7); IMMATURE GRAN ABSOLUTE AUTO 0.01 K/mm3 (0.00-0.10); IMMATURE GRAN PERCENT AUTO 0.1 % (<=1.0); LYMPHOCYTES ABSOLUTE AUTO 1.19 K/mm3 (1.18-3.74); LYMPHOCYTES PERCENT AUTO 14.5 % (19.3-51.7); MEAN CORPUSCULAR HEMOGLOBIN 33.6 pg (25.6-32.2); MEAN CORPUSCULAR HGB CONC 29.9 g/dl (32.2-35.5); MEAN CORPUSCULAR VOLUME 112.6 fl (79.4-94.8); MEAN PLATELET VOLUME 9.8 fl (9.4-12.3); MONOCYTES ABSOLUTE AUTO 0.63 K/mm3 (0.24-0.36); MONOCYTES PERCENT AUTO 7.7 % (4.7-12.5); NEUTROPHILS PERCENT AUTO 76.8 % (34.0-71.1); PLATELET COUNT,PLT 468 K/mm3 (182-369); RED BLOOD CELL COUNT 2.47 M/mm3 (3.98-5.22)
[2023-02-07 07:47] LABS: A/G RATIO 0.6 (1-2); ALBUMIN 2.4 g/dl (3.4-5.0); ANION GAP 19.7 (5-15); BILIRUBIN TOTAL 0.3 mg/dL (0.2-1.0); BUN/CREATININE RATIO 30.7 (14-18); CREATININE 1.4 mg/dL (0.55-1.02); EST CRCL DRUG DOSING (CG) 25.77 mL/min; PROTEIN TOTAL,TP 6.3 g/dl (6.4-8.2)
[2023-02-07 07:48] LABS: POTASSIUM,K 3.7 mEq/L (3.5-5.1)
[2023-02-07 07:56] LABS: SLIDE REVIEW ABNORMAL SMEAR
[2023-02-07] MEDS ORDERED: Sodium Chloride 0.9% 500 ML IV ONE (08:44)
[2023-02-07 09:16] LABS: TSH 16.074 uIU/mL (0.358-3.74)
[2023-02-07 09:55] LABS: APPEARANCE,URINE CLEAR (Clear); BILIRUBIN,URINE NEGATIVE (Negative); COLOR,URINE YELLOW (Yellow); GLUCOSE,URINE NEGATIVE (Negative); KETONES,URINE NEGATIVE (Negative); LEUKOCYTE ESTERASE,URINE NEGATIVE (Negative); NITRITE,URINE NEGATIVE (Negative); OCCULT BLOOD,URINE NEGATIVE (Negative); PROTEIN,URINE 1+ (Negative); UROBILINOGEN,URINE 0.2 (0.2-1.0)
[2023-02-07 10:10] LABS: BARBITURATE SCREEN,URINE NEGATIVE (CUTOFF=200); BENZODIAZEPINES SCREEN,URINE NEGATIVE (CUTOFF=150); BUPRENORPHINE SCREEN,URINE NEGATIVE (CUTOFF=10); METHADONE SCREEN, URINE NEGATIVE (CUTOFF=200); METHAMPHETAMINES SCREEN, URINE NEGATIVE (CUTOFF=500); OXYCODONE SCREEN,URINE NEGATIVE (CUT0FF=100); PROPOXYPHENE SCREEN,URINE NEGATIVE (CUTOFF=300); THC SCREEN,URINE 20 NG/ML NEGATIVE (CUTOFF=50)
[2023-02-07 10:17] LABS: BACTERIA,URINE RARE /hpf (FEW); EPITHELIAL CELLS,URINE 0-5 /hpf (0-5); HYALINE CASTS,URINE 0-5 /lpf (0-5); MUCUS,URINE FEW /hpf (FEW); RBC,URINE 0-5 /hpf (0-5); WBC,URINE 0-5 /hpf (0-5)
[2023-02-07 10:21] LABS: AMPHETAMINES SCREEN, URINE NEGATIVE (CUTOFF=500)
[2023-02-07] MEDS ORDERED: DEXTROSE 5% IV STA ×2 (12:15)
[2023-02-07] MEDS ORDERED: WATER IV STA ×2 (12:15)
[2023-02-07] MEDS ORDERED: ACETYLCYSTEINE IV STA ×2 (12:15)
[2023-02-07] MEDS ORDERED: LORazepam 2 MG/ML SDV IVPUSH ONE (12:25)
[2023-02-07 12:39] LABS: INR 1.08; PROTHROMBIN TIME 11.5 SECONDS (9.7-12.0)
== END 2023-02-07 13:15 ==
LOC: JD.ED 06:43
DX: T50.901A Poisoning by unspecified drugs, medicaments and biological substances, accidental (unintentional), initial encounter (principal); R40.1 Stupor; D64.9 Anemia, unspecified; R91.8 Other nonspecific abnormal finding of lung field; J44.9 Chronic obstructive pulmonary disease, unspecified; E78.00 Pure hypercholesterolemia, unspecified; E03.9 Hypothyroidism, unspecified; Z79.899 Other long term (current) drug therapy
CPT/HCPCS: 36415; 36600; 51702; 70450; 71045; 80053; 80143; 80179; 80306; 80307; 81001; 82550; 82803; 83605; 84443; 85025; 85610; 93005; 96361; 96374; 99285; J0132; J3490; J7030; J7060; 93010

== ENCOUNTER 2023-02-20 16:12 | Emergency (ER) | payer MEDICARE, BC ==
[2023-02-20] MEDS ORDERED: Sodium Chloride 0.9% 500 ML IV ONE ×2 (16:55→20:33)
[2023-02-20] MEDS ORDERED: Sodium Chloride 0.9% 10 ML Syringe FLUSH PRN (16:55)
[2023-02-20 18:10] LABS: BASOPHILS ABSOLUTE AUTO 0.03 K/mm3 (0.01-0.08); BASOPHILS PERCENT AUTO 0.5 % (0.1-1.2); EOSINOPHILS ABSOLUTE AUTO 0.04 K/mm3 (0.04-0.36); EOSINOPHILS PERCENT AUTO 0.6 (0.7-5.8); HEMATOCRIT 26.8 % (34.1-44.9); HEMOGLOBIN 8.2 gm/dl (11.2-15.7); LYMPHOCYTES ABSOLUTE AUTO 1.31 K/mm3 (1.18-3.74); LYMPHOCYTES PERCENT AUTO 20.2 % (19.3-51.7); MEAN CORPUSCULAR HEMOGLOBIN 32.2 pg (25.6-32.2); MEAN CORPUSCULAR HGB CONC 30.6 g/dl (32.2-35.5); MEAN CORPUSCULAR VOLUME 105.1 fl (79.4-94.8); MEAN PLATELET VOLUME 9.4 fl (9.4-12.3); MONOCYTES ABSOLUTE AUTO 0.69 K/mm3 (0.24-0.36); MONOCYTES PERCENT AUTO 10.6 % (4.7-12.5); NEUTROPHILS ABSOLUTE AUTO 4.41 K/mm3 (1.56-6.13); NEUTROPHILS PERCENT AUTO 68.1 % (34.0-71.1); PLATELET COUNT,PLT 471 K/mm3 (182-369); RED BLOOD CELL COUNT 2.55 M/mm3 (3.98-5.22); WHITE BLOOD CELL COUNT,WBC 6.48 K/mm3 (3.98-10.04)
[2023-02-20 18:25] LABS: ALANINE AMINOTRANSFERASE,ALT 41 U/L (14-59); ALBUMIN 2.1 g/dl (3.4-5.0); ALKALINE PHOSPHATASE 139 U/L (46-116); ANION GAP 11.6 (5-15); ASPARTATE AMNIOTRANSFERASE,AST 40 U/L (15-37); BILIRUBIN TOTAL 0.3 mg/dL (0.2-1.0); BLOOD UREA NITROGEN,BUN 46 mg/dL (7-18); BUN/CREATININE RATIO 51.1 (14-18); CALCIUM 8.2 mg/dL (8.5-10.1); CARBON DIOXIDE,CO2 26 mEq/L (21-32); CHLORIDE,CL 105 mEq/L (98-107); CREATININE 0.9 mg/dL (0.55-1.02); ESTIMATED GFR 69 mL/min (>60); GLUCOSE RANDOM 77 mg/dL (70-99); POTASSIUM,K 3.6 mEq/L (3.5-5.1); SODIUM,NA 139 mEq/L (136-145)
[2023-02-20 18:41] LABS: A/G RATIO 0.6 (1-2); PROTEIN TOTAL,TP 5.8 g/dl (6.4-8.2)
== END 2023-02-20 22:36 | disposition home or self-care (01) ==
LOC: JD.ED 16:12
DX: S72.115 Nondisplaced fracture of greater trochanter of left femur (principal); I95.9 Hypotension, unspecified; E78.00 Pure hypercholesterolemia, unspecified; J44.9 Chronic obstructive pulmonary disease, unspecified; E03.9 Hypothyroidism, unspecified; Z79.899 Other long term (current) drug therapy; W19.XXXD Unspecified fall, subsequent encounter
CPT/HCPCS: 36415; 70450; 73552; 73590; 80053; 85025; 96360; 99285; J3490; J7030; 36410; 99283

== ENCOUNTER 2023-02-23 12:48 | Emergency (ER) | payer MEDICARE, BC ==
[2023-02-23] MEDS ORDERED: Sodium Chloride 0.9% 500 ML IV ONE (13:52)
[2023-02-23 14:32] LABS: BASOPHILS ABSOLUTE AUTO 0.02 K/mm3 (0.01-0.08); BASOPHILS PERCENT AUTO 0.2 % (0.1-1.2); EOSINOPHILS ABSOLUTE AUTO 0.01 K/mm3 (0.04-0.36); EOSINOPHILS PERCENT AUTO 0.1 (0.7-5.8); HEMATOCRIT 27.1 % (34.1-44.9); HEMOGLOBIN 8.4 gm/dl (11.2-15.7); IMMATURE GRAN ABSOLUTE AUTO 0.01 K/mm3 (0.00-0.10); IMMATURE GRAN PERCENT AUTO 0.1 % (<=1.0); LYMPHOCYTES ABSOLUTE AUTO 0.96 K/mm3 (1.18-3.74); LYMPHOCYTES PERCENT AUTO 11.7 % (19.3-51.7); MEAN CORPUSCULAR HEMOGLOBIN 32.4 pg (25.6-32.2); MEAN CORPUSCULAR VOLUME 104.6 fl (79.4-94.8); MEAN PLATELET VOLUME 9.1 fl (9.4-12.3); MONOCYTES ABSOLUTE AUTO 0.71 K/mm3 (0.24-0.36); MONOCYTES PERCENT AUTO 8.6 % (4.7-12.5); NEUTROPHILS ABSOLUTE AUTO 6.53 K/mm3 (1.56-6.13); NEUTROPHILS PERCENT AUTO 79.3 % (34.0-71.1); PLATELET COUNT,PLT 531 K/mm3 (182-369); RED BLOOD CELL COUNT 2.59 M/mm3 (3.98-5.22); WHITE BLOOD CELL COUNT,WBC 8.24 K/mm3 (3.98-10.04)
[2023-02-23 14:57] LABS: A/G RATIO 0.7 (1-2); ALBUMIN 2.4 g/dl (3.4-5.0); ANION GAP 15.3 (5-15); BILIRUBIN TOTAL 0.3 mg/dL (0.2-1.0); BUN/CREATININE RATIO 43.6 (14-18); CALCIUM 9.1 mg/dL (8.5-10.1); CREATININE 1.1 mg/dL (0.55-1.02); EST CRCL DRUG DOSING (CG) 30.42 mL/min; POTASSIUM,K 3.3 mEq/L (3.5-5.1)
[2023-02-23] MEDS ORDERED: Potassium Chloride 20 MEQ Tab.ER PO ONE (15:01)
[2023-02-23 17:40] LABS: BARBITURATE SCREEN,URINE NEGATIVE (CUTOFF=200); BENZODIAZEPINES SCREEN,URINE NEGATIVE (CUTOFF=150); BUPRENORPHINE SCREEN,URINE NEGATIVE (CUTOFF=10); METHADONE SCREEN, URINE NEGATIVE (CUTOFF=200); METHAMPHETAMINES SCREEN, URINE NEGATIVE (CUTOFF=500); OXYCODONE SCREEN,URINE PRESUMPTIVE POSITIVE (CUT0FF=100); PROPOXYPHENE SCREEN,URINE NEGATIVE (CUTOFF=300); THC SCREEN,URINE 20 NG/ML NEGATIVE (CUTOFF=50)
[2023-02-23 17:41] LABS: AMPHETAMINES SCREEN, URINE NEGATIVE (CUTOFF=500)
== END 2023-02-23 18:57 | disposition home or self-care (01) ==
LOC: JD.ED 12:48
DX: M79.605 Pain in left leg (principal); J44.9 Chronic obstructive pulmonary disease, unspecified; E78.00 Pure hypercholesterolemia, unspecified; Z79.899 Other long term (current) drug therapy
CPT/HCPCS: 36415; 80053; 80143; 80179; 80306; 80307; 85025; 86140; 99283; A9270; J7030

== ENCOUNTER 2023-02-25 15:16 | Emergency (ER) | payer MEDICARE, BC ==
[2023-02-25] MEDS ORDERED: Sodium Chloride 0.9% 10 ML Syringe FLUSH PRN (15:53)
[2023-02-25 16:16] LABS: APPEARANCE,URINE CLEAR (Clear); BILIRUBIN,URINE NEGATIVE (Negative); COLOR,URINE YELLOW (Yellow); GLUCOSE,URINE NEGATIVE (Negative); KETONES,URINE NEGATIVE (Negative); LEUKOCYTE ESTERASE,URINE NEGATIVE (Negative); NITRITE,URINE NEGATIVE (Negative); OCCULT BLOOD,URINE NEGATIVE (Negative); PROTEIN,URINE 1+ (Negative); UROBILINOGEN,URINE 0.2 (0.2-1.0)
[2023-02-25 16:25] LABS: BASOPHILS ABSOLUTE AUTO 0.03 K/mm3 (0.01-0.08); BASOPHILS PERCENT AUTO 0.4 % (0.1-1.2); EOSINOPHILS ABSOLUTE AUTO 0.03 K/mm3 (0.04-0.36); EOSINOPHILS PERCENT AUTO 0.4 (0.7-5.8); HEMATOCRIT 25.7 % (34.1-44.9); HEMOGLOBIN 7.7 gm/dl (11.2-15.7); IMMATURE GRAN ABSOLUTE AUTO 0.01 K/mm3 (0.00-0.10); IMMATURE GRAN PERCENT AUTO 0.1 % (<=1.0); LYMPHOCYTES ABSOLUTE AUTO 1.31 K/mm3 (1.18-3.74); LYMPHOCYTES PERCENT AUTO 17.4 % (19.3-51.7); MEAN CORPUSCULAR HEMOGLOBIN 32.4 pg (25.6-32.2); MEAN PLATELET VOLUME 9.6 fl (9.4-12.3); MONOCYTES ABSOLUTE AUTO 0.99 K/mm3 (0.24-0.36); MONOCYTES PERCENT AUTO 13.2 % (4.7-12.5); NEUTROPHILS ABSOLUTE AUTO 5.15 K/mm3 (1.56-6.13); NEUTROPHILS PERCENT AUTO 68.5 % (34.0-71.1); PLATELET COUNT,PLT 544 K/mm3 (182-369); RED BLOOD CELL COUNT 2.38 M/mm3 (3.98-5.22); WHITE BLOOD CELL COUNT,WBC 7.52 K/mm3 (3.98-10.04)
[2023-02-25 16:53] LABS: A/G RATIO 0.6 (1-2); ALBUMIN 2.1 g/dl (3.4-5.0); ANION GAP 15.4 (5-15); BILIRUBIN TOTAL 0.2 mg/dL (0.2-1.0); CALCIUM 8.3 mg/dL (8.5-10.1); CREATININE 0.8 mg/dL (0.55-1.02); EST CRCL DRUG DOSING (CG) 42.06 mL/min; MAGNESIUM 2.1 mg/dL (1.8-2.4); POTASSIUM,K 3.4 mEq/L (3.5-5.1); PROTEIN TOTAL,TP 5.9 g/dl (6.4-8.2)
[2023-02-25 16:56] LABS: BACTERIA,URINE RARE /hpf (FEW); HYALINE CASTS,URINE 0-5 /lpf (0-5); MUCUS,URINE NOT SEEN /hpf (FEW); RBC,URINE 0-5 /hpf (0-5); SQUAMOUS EPITHELIAL CELLS,UR 0-5 /hpf (0-5); WBC,URINE 0-5 /hpf (0-5)
== END 2023-02-25 18:15 | disposition home or self-care (01) ==
LOC: JD.ED 15:16
DX: R60.0 Localized edema (principal); J44.9 Chronic obstructive pulmonary disease, unspecified; E78.00 Pure hypercholesterolemia, unspecified; Z79.899 Other long term (current) drug therapy; Z90.49 Acquired absence of other specified parts of digestive tract
CPT/HCPCS: 36415; 71045; 71045-26; 80053; 81001; 83735; 83880; 85025; 86140; 99283

== ENCOUNTER 2023-05-20 15:11 | Emergency (ER) | payer MEDICARE, BC ==
[2023-05-20] MEDS ORDERED: Sodium Chloride 0.9% 10 ML Syringe FLUSH PRN (15:41)
[2023-05-20] MEDS ORDERED: Sodium Chloride 0.9% 1,000 ML IV SCH (15:45)
[2023-05-20 16:34] LABS: BASOPHILS PERCENT AUTO 0.1 % (0.0-1.0); EOSINOPHILS PERCENT AUTO 0.2 % (0.0-6.0); HEMATOCRIT 34.1 % (37.0-47.0); HEMOGLOBIN 10.3 gm/dl (12.0-16.0); IMMATURE GRAN ABSOLUTE AUTO 0.03 K/mm3 (0.00-0.05); IMMATURE GRAN PERCENT AUTO 0.4 % (0.0-0.4); LYMPHOCYTES ABSOLUTE AUTO 1.2 K/mm3 (1.0-4.8); LYMPHOCYTES PERCENT AUTO 13.7 % (24.0-44.0); MEAN CORPUSCULAR HEMOGLOBIN 31.1 pg (28.0-32.0); MEAN CORPUSCULAR HGB CONC 30.2 g/dl (32.0-36.0); MEAN PLATELET VOLUME 10.2 fl (9.4-12.3); MONOCYTES ABSOLUTE AUTO 0.6 K/mm3 (0.0-0.8); MONOCYTES PERCENT AUTO 6.5 % (0.0-8.0); NEUTROPHILS ABSOLUTE AUTO 6.7 K/mm3 (1.8-7.7); NEUTROPHILS PERCENT AUTO 79.1 % (41.0-71.0); PLATELET COUNT,PLT 391 K/mm3 (150-400); RED BLOOD CELL COUNT 3.31 M/mm3 (4.10-5.30); WHITE BLOOD CELL COUNT,WBC 8.46 K/mm3 (3.9-11.3)
[2023-05-20 16:53] LABS: ANION GAP 13.5 (5-15); POTASSIUM,K 3.5 mEq/L (3.5-5.1)
[2023-05-20 16:54] LABS: A/G RATIO 0.7 (1-2); ALBUMIN 2.4 g/dl (3.4-5.0); BILIRUBIN TOTAL 0.2 mg/dL (0.2-1.0); BUN/CREATININE RATIO 24.5 (14-18); CALCIUM 8.5 mg/dL (8.5-10.1); CREATININE 1.1 mg/dL (0.55-1.02); EST CRCL DRUG DOSING (CG) 29.38 mL/min; PROTEIN TOTAL,TP 6.1 g/dl (6.4-8.2)
[2023-05-20 17:07] LABS: APPEARANCE,URINE CLEAR (Clear); BILIRUBIN,URINE NEGATIVE (Negative); COLOR,URINE YELLOW (Yellow); GLUCOSE,URINE NEGATIVE (Negative); KETONES,URINE NEGATIVE (Negative); LEUKOCYTE ESTERASE,URINE NEGATIVE (Negative); NITRITE,URINE NEGATIVE (Negative); OCCULT BLOOD,URINE NEGATIVE (Negative); PROTEIN,URINE 1+ (Negative); UROBILINOGEN,URINE 0.2 (0.2-1.0)
[2023-05-20 17:13] LABS: BACTERIA,URINE FEW /hpf (FEW); MUCUS,URINE FEW /hpf (FEW); RBC,URINE 0-5 /hpf (0-5); SQUAMOUS EPITHELIAL CELLS,UR 0-5 /hpf (0-5); WBC,URINE 0-5 /hpf (0-5)
[2023-05-20] MEDS ORDERED: Loperamide 2 MG Cap PO ONE (17:31)
== END 2023-05-20 18:25 | disposition home or self-care (01) ==
LOC: JD.ED 15:11
DX: R41.0 Disorientation, unspecified (principal); E86.0 Dehydration; R19.7 Diarrhea, unspecified; F17.210 Nicotine dependence, cigarettes, uncomplicated; J44.9 Chronic obstructive pulmonary disease, unspecified; E03.9 Hypothyroidism, unspecified; E78.00 Pure hypercholesterolemia, unspecified; Z79.899 Other long term (current) drug therapy
CPT/HCPCS: 36415; 70450; 80053; 81001; 84484; 85025; 93005; 96360; 99285; J3490; J7030; 93010; 99283

== ENCOUNTER 2023-06-24 15:44 | Emergency (ER) | payer MEDICARE, BC | END 2023-06-24 17:50 | disposition home or self-care (01) | LOC: JD.ED 15:44 | DX: L97.929 Non-pressure chronic ulcer of unspecified part of left lower leg with unspecified severity (principal); L97.529 Non-pressure chronic ulcer of other part of left foot with unspecified severity; E78.00 Pure hypercholesterolemia, unspecified; J44.9 Chronic obstructive pulmonary disease, unspecified; E03.9 Hypothyroidism, unspecified; F17.210 Nicotine dependence, cigarettes, uncomplicated; Z86.73 Personal history of transient ischemic attack (TIA), and cerebral infarction without residual deficits; Z79.899 Other long term (current) drug therapy | CPT/HCPCS: 99282; 99283 ==

== ENCOUNTER 2023-06-27 12:16 | Inpatient (IN) | payer MEDICARE, BC ==
[2023-06-27] MEDS ORDERED: Dextrose 5%-0.9% NaCl 1,000 ML IV SCH ×2 (12:30→16:45)
[2023-06-27] MEDS ORDERED: Ketamine 200 MG/20 ML MDV ONE (12:38)
[2023-06-27] MEDS ORDERED: Ketamine 200 MG/20 ML MDV IVPUSH STA (12:45)
[2023-06-27] MEDS ORDERED: Ketamine 200 MG/20 ML MDV IM ONE (12:52)
[2023-06-27 12:54] LABS: HEMATOCRIT 28.5 % (37.0-47.0); HEMOGLOBIN 9.1 gm/dl (12.0-16.0); MEAN CORPUSCULAR HEMOGLOBIN 29.9 pg (28.0-32.0); MEAN CORPUSCULAR HGB CONC 31.9 g/dl (32.0-36.0); MEAN PLATELET VOLUME 10.4 fl (9.4-12.3); RED BLOOD CELL COUNT 3.04 M/mm3 (4.10-5.30); WHITE BLOOD CELL COUNT,WBC 5.56 K/mm3 (3.9-11.3)
[2023-06-27 12:56] LABS: MEAN CORPUSCULAR VOLUME 93.8 fl (83.0-99.0); PLATELET COUNT,PLT 282 K/mm3 (150-400)
[2023-06-27 13:11] LABS: INR 1.05; PROTHROMBIN TIME 11.2 SECONDS (9.7-12.0)
[2023-06-27 13:12] LABS: PTT,PARTIAL THROMBOPLSTIN TIME 32.1 SECONDS (21.7-31.4)
[2023-06-27 13:29] LABS: A/G RATIO 0.5 (1-2); ALANINE AMINOTRANSFERASE,ALT 79 U/L (14-59); ALBUMIN 1.7 g/dl (3.4-5.0); ALKALINE PHOSPHATASE 155 U/L (46-116); ANION GAP 13.7 (5-15); ASPARTATE AMNIOTRANSFERASE,AST 128 U/L (15-37); BILIRUBIN TOTAL 0.2 mg/dL (0.2-1.0); BLOOD UREA NITROGEN,BUN 41 mg/dL (7-18); BUN/CREATININE RATIO 31.5 (14-18); CALCIUM 8.4 mg/dL (8.5-10.1); CARBON DIOXIDE,CO2 26 mEq/L (21-32); CHLORIDE,CL 113 mEq/L (98-107); CREATININE 1.3 mg/dL (0.55-1.02); ESTIMATED GFR 45 mL/min (>60); MAGNESIUM 2.4 mg/dL (1.8-2.4); POTASSIUM,K 2.7 mEq/L (3.5-5.1); SODIUM,NA 150 mEq/L (136-145); TROPONIN I HIGH SENSITIVITY 36 pg/mL (<=51)
[2023-06-27 13:34] LABS: C-REACTIVE PROTEIN 12.8 mg/dL (<1.0); CREATINE KINASE,CK 1728 U/L (26-192); GLUCOSE RANDOM 27 mg/dL (70-99)
[2023-06-27] MEDS ORDERED: 50% Dextrose in Water 50 ML Syringe ONE (13:35)
[2023-06-27] MEDS ORDERED: 50% Dextrose in Water 50 ML Syringe IVPUSH ONE (13:37)
[2023-06-27 14:10] LABS: BAND PERCENT MAN 3 % (0-10); BASOPHILS PERCENT MAN 0 (0.1-1.2); EOSINOPHILS PERCENT MAN 0 % (0.7-5.8); LYMPHOCYTES % ATYPICAL MANUAL 0 %; LYMPHOCYTES PERCENT MAN 5 % (20-40); MONOCYTES PERCENT MAN 3 % (2-10)
[2023-06-27 14:12] LABS: ANISOCYTOSIS 1+ SLIGHT; HYPOCHROMASIA 1+ SLIGHT; OVALOCYTES 1+ SLIGHT; PLATELET COUNT ESTIMATE ADEQUATE; POLYCHROMASIA 1+ SLIGHT; TOXIC GRANULATION 1+ SLIGHT
[2023-06-27] MEDS ORDERED: D5 1/2 NS w/ 10 mEq/L KCl 1,000 ML IV SCH (15:00)
[2023-06-27] MEDS ORDERED: Sodium Chloride 0.9% 10 ML Syringe FLUSH PRN (15:38)
[2023-06-27] MEDS ORDERED: Ondansetron 4 MG/2 ML SDV IV PRN (15:38)
[2023-06-27] MEDS ORDERED: Ondansetron 4 MG Tab.DIS PO PRN (15:38)
[2023-06-27] MEDS ORDERED: Acetaminophen 325 MG Tab PO PRN (15:38)
[2023-06-27] MEDS ORDERED: Lactated Ringers 1,000 ML IV SCH ×2 (15:45→20:33)
[2023-06-27] MEDS ORDERED: cefTRIAXone 1 GM Vial IM ONE (15:49)
[2023-06-27 16:20] LABS: APPEARANCE,URINE CLEAR (Clear); BILIRUBIN,URINE 1+ (Negative); COLOR,URINE YELLOW (Yellow); GLUCOSE,URINE NEGATIVE (Negative); KETONES,URINE NEGATIVE (Negative); LEUKOCYTE ESTERASE,URINE NEGATIVE (Negative); NITRITE,URINE NEGATIVE (Negative); OCCULT BLOOD,URINE 2+ (Negative); PROTEIN,URINE 2+ (Negative); UROBILINOGEN,URINE 0.2 (0.2-1.0)
[2023-06-27 17:00] LABS: BACTERIA,URINE FEW /hpf (FEW); MUCUS,URINE FEW /hpf (FEW); RBC,URINE 75-100 /hpf (0-5); SQUAMOUS EPITHELIAL CELLS,UR 0-5 /hpf (0-5); WBC,URINE 0-5 /hpf (0-5)
[2023-06-27] MEDS: cefTRIAXone 2 GM in Sodium Chloride 0.9% 100 ML IV SCH (17:21)
[2023-06-27] MEDS: Heparin Sodium 5,000 Units/ML Vial SUBCUT SCH ×2 (17:23→23:58)
[2023-06-27] MEDS: Potassium Chloride 10 MEQ in Premix Bag 1 BAG IV SCH ×5 (17:59→23:45)
[2023-06-27] MEDS: Dextrose 5% in Water 1,000 ML IV SCH (18:11)
[2023-06-27 18:41] LABS: A/G RATIO 0.5 (1-2); ALANINE AMINOTRANSFERASE,ALT 72 U/L (14-59); ALBUMIN 1.3 g/dl (3.4-5.0); ALKALINE PHOSPHATASE 141 U/L (46-116); ANION GAP 17.4 (5-15); ASPARTATE AMNIOTRANSFERASE,AST 120 U/L (15-37); BILIRUBIN TOTAL 0.1 mg/dL (0.2-1.0); BLOOD UREA NITROGEN,BUN 44 mg/dL (7-18); BUN/CREATININE RATIO 31.4 (14-18); CALCIUM 7.9 mg/dL (8.5-10.1); CARBON DIOXIDE,CO2 21 mEq/L (21-32); CHLORIDE,CL 114 mEq/L (98-107); CREATININE 1.4 mg/dL (0.55-1.02); ESTIMATED GFR 41 mL/min (>60); GLUCOSE RANDOM 267 mg/dL (70-99); SODIUM,NA 150 mEq/L (136-145)
[2023-06-27 18:46] LABS: POTASSIUM,K 2.4 mEq/L (3.5-5.1)
[2023-06-27] MEDS: Lactated Ringers 1,000 ML ONE ×2 (20:40→20:44)
[2023-06-28] MEDS: Potassium Chloride 10 MEQ in Premix Bag 1 BAG IV SCH ×5 (00:50→03:19)
[2023-06-28] MEDS ORDERED: Sodium Chloride 0.9% 250 ML ONE (00:55)
[2023-06-28] MEDS ORDERED: Phenylephrine 1% 10 MG/ML SDV ONE ×2 (00:55→22:48)
[2023-06-28] MEDS: Phenylephrine 25 MG in Sodium Chloride 0.9% 247.5 ML IV SCH ×5 (01:30→20:19)
[2023-06-28] MEDS ORDERED: Phenylephrine 10 MG in Sodium Chloride 0.9% 99 ML IV SCH (01:30)
[2023-06-28] MEDS: Dextrose 5% in Water 1,000 ML IV SCH ×3 (02:57→20:21)
[2023-06-28 05:37] LABS: BASOPHILS PERCENT AUTO 0.1 % (0.0-1.0); HEMATOCRIT 24.5 % (37.0-47.0); IMMATURE GRAN ABSOLUTE AUTO 0.04 K/mm3 (0.00-0.05); IMMATURE GRAN PERCENT AUTO 0.4 % (0.0-0.4); LYMPHOCYTES ABSOLUTE AUTO 1.1 K/mm3 (1.0-4.8); LYMPHOCYTES PERCENT AUTO 10.7 % (24.0-44.0); MEAN CORPUSCULAR HEMOGLOBIN 30.3 pg (28.0-32.0); MEAN CORPUSCULAR HGB CONC 32.7 g/dl (32.0-36.0); MEAN CORPUSCULAR VOLUME 92.8 fl (83.0-99.0); MEAN PLATELET VOLUME 10.6 fl (9.4-12.3); MONOCYTES ABSOLUTE AUTO 0.4 K/mm3 (0.0-0.8); MONOCYTES PERCENT AUTO 4.1 % (0.0-8.0); NEUTROPHILS ABSOLUTE AUTO 8.6 K/mm3 (1.8-7.7); NEUTROPHILS PERCENT AUTO 84.7 % (41.0-71.0); PLATELET COUNT,PLT 281 K/mm3 (150-400); RED BLOOD CELL COUNT 2.64 M/mm3 (4.10-5.30); WHITE BLOOD CELL COUNT,WBC 10.14 K/mm3 (3.9-11.3)
[2023-06-28 05:56] LABS: A/G RATIO 0.5 (1-2); ALBUMIN 1.3 g/dl (3.4-5.0); ANION GAP 13.7 (5-15); BILIRUBIN TOTAL 0.1 mg/dL (0.2-1.0); BUN/CREATININE RATIO 33.3 (14-18); CALCIUM 7.6 mg/dL (8.5-10.1); CREATININE 1.2 mg/dL (0.55-1.02); EST CRCL DRUG DOSING (CG) 23.47 mL/min; PROTEIN TOTAL,TP 4.1 g/dl (6.4-8.2)
[2023-06-28 06:08] LABS: POTASSIUM,K 3.7 mEq/L (3.5-5.1)
[2023-06-28 06:17] LABS: SLIDE REVIEW ABNORMAL SMEAR
[2023-06-28] MEDS ORDERED: Sodium Chloride 0.9% 1,000 ML IV SCH (08:00)
[2023-06-28] MEDS ORDERED: Naloxone 0.4 MG/ML SDV IVPUSH PRN (08:21)
[2023-06-28] MEDS: Morphine 2 MG/ML SYRINGE IVPUSH PRN ×4 (08:36→23:49)
[2023-06-28] MEDS: Heparin Sodium 5,000 Units/ML Vial SUBCUT SCH ×3 (08:37→23:47)
[2023-06-28] MEDS: Midodrine 5 MG Tab PO SCH ×3 (08:37→17:13)
[2023-06-28] MEDS: cefTRIAXone 2 GM in Sodium Chloride 0.9% 100 ML IV SCH (17:17)
[2023-06-29] MEDS: Phenylephrine 25 MG in Sodium Chloride 0.9% 247.5 ML IV SCH ×4 (01:05→18:43)
[2023-06-29] MEDS: Dextrose 5% in Water 1,000 ML IV SCH ×2 (01:55→10:22)
[2023-06-29] MEDS: Morphine 2 MG/ML SYRINGE IVPUSH PRN ×4 (04:04→22:56)
[2023-06-29] MEDS ORDERED: Sodium Chloride 0.9% 250 ML ONE (04:57)
[2023-06-29 05:33] LABS: BASOPHILS PERCENT AUTO 0.3 % (0.0-1.0); HEMATOCRIT 24.5 % (37.0-47.0); IMMATURE GRAN ABSOLUTE AUTO 0.07 K/mm3 (0.00-0.05); IMMATURE GRAN PERCENT AUTO 0.8 % (0.0-0.4); LYMPHOCYTES ABSOLUTE AUTO 0.8 K/mm3 (1.0-4.8); MEAN CORPUSCULAR HGB CONC 32.7 g/dl (32.0-36.0); MEAN CORPUSCULAR VOLUME 91.8 fl (83.0-99.0); MEAN PLATELET VOLUME 10.5 fl (9.4-12.3); MONOCYTES ABSOLUTE AUTO 0.2 K/mm3 (0.0-0.8); MONOCYTES PERCENT AUTO 1.6 % (0.0-8.0); NEUTROPHILS ABSOLUTE AUTO 8.2 K/mm3 (1.8-7.7); NEUTROPHILS PERCENT AUTO 88.3 % (41.0-71.0); PLATELET COUNT,PLT 282 K/mm3 (150-400); RED BLOOD CELL COUNT 2.67 M/mm3 (4.10-5.30); WHITE BLOOD CELL COUNT,WBC 9.26 K/mm3 (3.9-11.3)
[2023-06-29 05:53] LABS: A/G RATIO 0.4 (1-2); ALBUMIN 1.2 g/dl (3.4-5.0); ANION GAP 13.4 (5-15); BILIRUBIN TOTAL 0.1 mg/dL (0.2-1.0); BUN/CREATININE RATIO 31.1 (14-18); CALCIUM 7.4 mg/dL (8.5-10.1); CREATININE 0.9 mg/dL (0.55-1.02); EST CRCL DRUG DOSING (CG) 31.26 mL/min; POTASSIUM,K 3.4 mEq/L (3.5-5.1); PROTEIN TOTAL,TP 4.1 g/dl (6.4-8.2)
[2023-06-29 06:06] LABS: SLIDE REVIEW ABNORMAL SMEAR
[2023-06-29] MEDS: Heparin Sodium 5,000 Units/ML Vial SUBCUT SCH ×3 (09:16→22:54)
[2023-06-29] MEDS: Midodrine 5 MG Tab PO SCH ×4 (09:16→16:24)
[2023-06-29] MEDS: Fludrocortisone 0.1 MG Tab PO SCH (11:42)
[2023-06-29] MEDS: cefTRIAXone 2 GM in Sodium Chloride 0.9% 100 ML IV SCH (16:25)
[2023-06-29] MEDS ORDERED: Dextrose 5% in Water 1,000 ML IV SCH (17:00)
[2023-06-29] MEDS: 50% Dextrose in Water 50 ML Syringe IVPUSH PRN ×2 (17:45→20:09)
[2023-06-29] MEDS: Dextrose 10% in Water 1,000 ML IV SCH (21:30)
[2023-06-30] MEDS ORDERED: Atropine 0.1 MG/ML 10 ML Syringe ONE (05:01)
[2023-06-30] MEDS: Morphine 2 MG/ML SYRINGE IVPUSH PRN (05:15)
[2023-06-30] MEDS: 50% Dextrose in Water 50 ML Syringe IVPUSH PRN ×2 (05:16→17:05)
[2023-06-30 05:42] LABS: ANION GAP 14.2 (5-15); BUN/CREATININE RATIO 28.6 (14-18); CALCIUM 7.3 mg/dL (8.5-10.1); CREATININE 0.7 mg/dL (0.55-1.02); EST CRCL DRUG DOSING (CG) 40.74 mL/min; POTASSIUM,K 3.2 mEq/L (3.5-5.1)
[2023-06-30] MEDS: Midodrine 5 MG Tab PO SCH ×3 (07:47→16:37)
[2023-06-30] MEDS: Heparin Sodium 5,000 Units/ML Vial SUBCUT SCH ×2 (07:47→16:37)
[2023-06-30] MEDS: Fludrocortisone 0.1 MG Tab PO SCH (07:47)
[2023-06-30] MEDS: Dextrose 10% in Water 1,000 ML IV SCH ×2 (08:02→17:04)
[2023-06-30] MEDS ORDERED: Fludrocortisone 0.1 MG Tab PO SCH (11:30)
[2023-06-30] MEDS: Meropenem 500 MG in Sodium Chloride 0.9% 100 ML IV SCH ×2 (12:56→20:46)
[2023-06-30] MEDS ORDERED: Meropenem 1 GM in Sodium Chloride 0.9% 100 ML IV SCH (13:00)
[2023-07-01] MEDS: Heparin Sodium 5,000 Units/ML Vial SUBCUT SCH ×2 (00:21→08:38)
[2023-07-01] MEDS ORDERED: Atropine 0.1 MG/ML 10 ML Syringe ONE (05:08)
[2023-07-01 05:30] LABS: BASOPHILS PERCENT AUTO 0.2 % (0.0-1.0); HEMATOCRIT 23.6 % (37.0-47.0); HEMOGLOBIN 7.7 gm/dl (12.0-16.0); IMMATURE GRAN ABSOLUTE AUTO 0.02 K/mm3 (0.00-0.05); IMMATURE GRAN PERCENT AUTO 0.4 % (0.0-0.4); LYMPHOCYTES ABSOLUTE AUTO 0.4 K/mm3 (1.0-4.8); LYMPHOCYTES PERCENT AUTO 7.1 % (24.0-44.0); MEAN CORPUSCULAR HEMOGLOBIN 29.6 pg (28.0-32.0); MEAN CORPUSCULAR HGB CONC 32.6 g/dl (32.0-36.0); MEAN CORPUSCULAR VOLUME 90.8 fl (83.0-99.0); MEAN PLATELET VOLUME 10.6 fl (9.4-12.3); MONOCYTES ABSOLUTE AUTO 0.1 K/mm3 (0.0-0.8); MONOCYTES PERCENT AUTO 1.6 % (0.0-8.0); NEUTROPHILS ABSOLUTE AUTO 4.5 K/mm3 (1.8-7.7); NEUTROPHILS PERCENT AUTO 90.7 % (41.0-71.0); PLATELET COUNT,PLT 170 K/mm3 (150-400); WHITE BLOOD CELL COUNT,WBC 4.96 K/mm3 (3.9-11.3)
[2023-07-01 05:31] LABS: A/G RATIO 0.4 (1-2); ALBUMIN 1.1 g/dl (3.4-5.0); ANION GAP 12.9 (5-15); BILIRUBIN TOTAL 0.1 mg/dL (0.2-1.0); BUN/CREATININE RATIO 31.7 (14-18); CALCIUM 7.8 mg/dL (8.5-10.1); CREATININE 0.6 mg/dL (0.55-1.02); EST CRCL DRUG DOSING (CG) 47.52 mL/min; MAGNESIUM 1.6 mg/dL (1.8-2.4); POTASSIUM,K 2.9 mEq/L (3.5-5.1); PROTEIN TOTAL,TP 4.2 g/dl (6.4-8.2)
[2023-07-01 06:04] LABS: SLIDE REVIEW ABNORMAL SMEAR
[2023-07-01] MEDS: Meropenem 500 MG in Sodium Chloride 0.9% 100 ML IV SCH ×3 (06:21→15:34)
[2023-07-01] MEDS: Midodrine 5 MG Tab PO SCH ×3 (08:39→12:49)
[2023-07-01] MEDS: Fludrocortisone 0.1 MG Tab PO SCH ×2 (08:39→09:01)
[2023-07-01] MEDS: Potassium Chloride 10 MEQ in Premix Bag 1 BAG IV SCH ×2 (08:39→10:37)
[2023-07-01] MEDS: Dextrose 10% in Water 1,000 ML IV SCH (10:37)
[2023-07-01] MEDS: Morphine 2 MG/ML SYRINGE IVPUSH PRN ×3 (14:09→23:38)
[2023-07-01] MEDS ORDERED: Scopolamine 1.5 MG Transdermal Patch TRDERM PRN (16:18)
[2023-07-02] MEDS: Morphine 2 MG/ML SYRINGE IVPUSH PRN ×8 (03:05→22:06)
[2023-07-02] MEDS: LORazepam 2 MG/ML SDV IVPUSH PRN ×5 (03:08→22:06)
[2023-07-03] MEDS: LORazepam 2 MG/ML SDV IVPUSH PRN (01:54)
[2023-07-03] MEDS: Morphine 2 MG/ML SYRINGE IVPUSH PRN (01:54)
== END 2023-07-03 08:45 | disposition expired | DRG 871 ==
LOC: JD.ED 12:16 → JD.ICU 15:38
PROVIDERS: ADMIT Hospitalist; ATTEND Hospitalist
DX: R62.7 Adult failure to thrive (principal); A41.9 Sepsis, unspecified organism; E43 Unspecified severe protein-calorie malnutrition; L97.909 Non-pressure chronic ulcer of unspecified part of unspecified lower leg with unspecified severity; Z68.1 Body mass index [BMI] 19.9 or less, adult; I95.89 Other hypotension; L97.229 Non-pressure chronic ulcer of left calf with unspecified severity; E87.0 Hyperosmolality and hypernatremia; N17.9 Acute kidney failure, unspecified; M62.82 Rhabdomyolysis; R64 Cachexia; Z66 Do not resuscitate; E16.2 Hypoglycemia, unspecified; Z86.718 Personal history of other venous thrombosis and embolism; W19.XXXA Unspecified fall, initial encounter; E87.6 Hypokalemia; I95.9 Hypotension, unspecified; E86.0 Dehydration; E78.00 Pure hypercholesterolemia, unspecified; J44.9 Chronic obstructive pulmonary disease, unspecified; M81.0 Age-related osteoporosis without current pathological fracture; M19.90 Unspecified osteoarthritis, unspecified site; G62.9 Polyneuropathy, unspecified; F41.9 Anxiety disorder, unspecified; F32.A Depression, unspecified; G47.00 Insomnia, unspecified; E03.9 Hypothyroidism, unspecified; M54.50 Low back pain, unspecified; M10.9 Gout, unspecified; D64.9 Anemia, unspecified; Z98.890 Other specified postprocedural states; Z79.899 Other long term (current) drug therapy; Z95.0 Presence of cardiac pacemaker; Z86.73 Personal history of transient ischemic attack (TIA), and cerebral infarction without residual deficits; Z87.11 Personal history of peptic ulcer disease; Z90.49 Acquired absence of other specified parts of digestive tract
CPT/HCPCS: 36415; 71045; 72170; 80053; 82009; 82550; 82947; 83605; 83735; 83880; 84484; 85007; 85027; 85610; 85730; 86140; 87040; 93005; 96361; 96372; 96374; 99285; J7042; 80048; 81001; 85025; 87070; 87075; 87077; 87186; 87205; 93010; 94761; 97163-GP; 97597-GP; 99223; 99233; 99238; 99283; A9270-GY; J0461; J0696; J1644; J2060; J2185; J2270; J2371; J3480; J3490; J7030; J7050; J7060; J7120